=== PATIENT | female | born 1955 | race Caucasian/White ===

== ENCOUNTER → 2019-07-08 09:16 | Outpatient (CLI) | payer BC, MEDICARE, SELFPAY ==
--- NOTE | 2019-07-08 09:21 | MM_ITS ---
PROCEDURE: MM DIG SCREENING MAMM BI W/CAD CLINICAL INDICATION: SCREENING no hormones but no new complaints. Noncontributory family history COMPARISON: DIGMAMMDX MAMMOGRAM DX-NUTRITION CLUB AMBASSADOR N/C from 04/27/2003 DMSB DIGITAL MAMM-SCREEN BILATERAL from 05/30/2012 DMSB DIG MAMM-SCREEN KEVIN from 06/29/2014 TECHNIQUE: Standard CC and MLO images were obtained. R2 CAD reviewed. FINDINGS: Moderate density breast. Mild inhomogeneous. Mild asymmetry No dominant or suspicious mass. No suspicious calcifications. Right breast no new areas of significant concern Left breast: mild asymmetric areas of density at the medial inferior left breast, best seen on CC View unchanged since prior study, IMPRESSION: No significant change since prior study. Stable mammogram. Follow up 1 year recommended BI-RAD Category: 2 Benign Finding(s) FOLLOW-UP: 1YR 1 Year Follow-up (A letter has been sent to the patient regarding results of the study.) Dictated by: Levon Friedman MD 07/08/2019 15:03 Signed by: <Electronically signed by Levon Friedman MD in [place]> 07/11/2019 23:09
--- NOTE | 2019-07-08 09:22 | XR_ITS ---
PROCEDURE: XR DEXA AXIAL SKELETON CLINICAL HISTORY: POSTMENOPAUSAL SCREENING COMPARISON: No exams were available for comparison FINDINGS: L1-L4 density has a density of 1.067 grams/centimeter sq with a T-score of -0.9. The lowest density in the hip is in region of the right femoral neck and has a T-score of -0.9. IMPRESSION: Normal bone density with low fracture risk. Recommend follow-up exam June 2021. Dictated by: Carmelo Murphy MD 07/08/2019 18:51 Signed by: <Electronically signed by Carmelo Murphy MD in [place]> 07/08/2019 18:51
== END ==
PROVIDERS: PCP Family Medicine; Visit Provider Physician Assistant
DX: Z12.31 Encounter for screening mammogram for malignant neoplasm of breast (principal); Z78.0 Asymptomatic menopausal state
CPT/HCPCS: 77067; 77080

== ENCOUNTER → 2019-12-28 14:42 | Outpatient (CLI) | payer BC, SELFPAY ==
--- NOTE | 2019-12-28 14:48 | XR_ITS ---
PROCEDURE: XR KUB CLINICAL INDICATION: RT FLANK PAIN,HEMATURIA COMPARISON: No exams were available for comparison FINDINGS: Gas pattern-The bowel gas pattern is unremarkable. No obvious obstruction. Calcifications-No abnormal calcifications are evident. No obvious renal or ureteral calculi. Bones-No acute bony anomalies evident. IMPRESSION: No acute findings. Dictated by: Carmelo Murphy MD 12/28/2019 15:23 Electronically signed by Carmelo Murphy MD in [place] 12/28/2019 15:23
== END ==
PROVIDERS: PCP Family Medicine; Visit Provider Family Medicine
DX: R10.9 Unspecified abdominal pain (principal); R31.29 Other microscopic hematuria
CPT/HCPCS: 74018

== ENCOUNTER → 2021-06-14 12:19 | Outpatient (CLI) | payer BC, SELFPAY ==
--- NOTE | 2021-06-14 | CA_ITS ---
APPROVED REPORT Exam: Pharmacologic Technologist: chito farias, Ht: 5 ft 1 in Wt: 240 lbs BSA: 2.04 m2 HR: 71 bpm BP: 179/80 mmHg Indications: CP Medical History Medications: Fluid pill,,,,, Allergies: Sulfa, Codeine Cardiac Risk Factors: HTN, FHX of CAD Stress Test Details Test: LEXISCAN HR Resting HR: 72 bpm Max Heart Rate (APMHR): 153.849251 bpm Max HR Achieved: 106 bpm Target HR (85% APMHR): 130.036504 bpm % of APMHR: 69.28 Recovery HR: 87 bpm BP Resting BP: 179/80 mmHg Max BP: 179/80 mmHg Recovery BP: 168.0/81.0 mmHg ECG Resting ECG: NSR, early repolarization changes. Clinical Exercise duration: 04:06 min Highest Stage Achieved: Exercise capacity: 1.0 METs Stress ECG Conclusion No symptoms. No arhhythmia or ectopy. No significant ST changes. Unremarkable Lexiscan stress. Images reported separately. Electronically signed by : Seth Ortega, 06/15/2021 11:49:12
--- NOTE | 2021-06-14 12:41 | NM_ITS ---
APPROVED REPORT Exam: Nuclear Stress Test Indication: fm hx, c.p., sob, fatigue Patient Location: Outpatient Stress Tech: Jankishani Peña [place] Tech:Beatris Claire SAPNA RT (R)(N)(M) Ht: 5 ft 1 in Wt: 240 lbs Bra Size: 40B HR: 71 bpm BP: 179/80 mmHg BSA: 2.04 m2 BMI: 45.3 History: fm hx, c.p., sob, fatigue Procedure: Patient received a 0.4 mg of intravenous Lexiscan, resting heart rate 71 bpm, resting blood pressure 179/80 mmHg, with Lexiscan maximum heart rate achived was 104 bpm which is Less than 85 % of the maximum predicted heart rate and blood pressure was 178/92 mmHg. With Lexiscan, patient denied any complaint of chest pain. Electrocardiogram Resting electrocardiogram shows sinus rhythm, with Lexiscan there is less than 1.[address] segment depression noted from the baseline EKG. The EKG portion of the Lexiscan is nondiagnostic Cardiac Stress and Resting SPECT Images: Cardiac Stress and Resting SPECT images were obtained using technetium 99m Myoview 31.7 mCi stress and 10.16 mCi at rest. Gated SPECT for the analysis of segmental wall motion and calculation of the ejection fraction also done. Prone images were also obtained. Cardiac stress and resting SPECT images show uniform myocardial activity without segmental perfusion abnormality, computer derived ejection fraction is over 65% with no regional wall motion abnormality, right ventricle is normal size and contractility. Conclusion: 1. The EKG portion of the Lexiscan is nondiagnostic. 2. No scintigraphic evidence of reversible ischemia seen, computer derived ejection fraction is over 65.1 with no regional wall motion abnormality, right ventricle is normal size and contractility. 3. Normal Lexiscan Myoview study. Electronically signed by : Seth Ortega, 06/15/2021 12:48:56
== END ==
PROVIDERS: PCP Family Medicine; Visit Provider Family Medicine
DX: R07.9 Chest pain, unspecified (principal)
CPT/HCPCS: 78452; 93017; A9502; J2785

== ENCOUNTER 2022-04-17 10:46 | Emergency (ER) | payer BC, MEDICARE, SELFPAY ==
[2022-04-17 11:10] VITALS: BP 140/80; PULSE 75; RESP 18; TEMP 36.5; O2SAT 98; BMI 44.4
--- NOTE | 2022-04-17 11:41 | HMH.EDUTC ---
[facility] [place] Impression: Viral syndrome Disposition: Home, Self-Care Condition on Discharge: Good Instructions: DI for Viral Syndrome, DI for COVID-19 (Suspected or Confirmed ), Preventing the Spread of Coronavirus Discharge Instructions Additional Instructions: *Monitor Temp, Over the counter Motrin or Tylenol as directed/as needed Tylenol every 4 hours and Motrin every 6 hours (as long as your family doctor has told you that you can take it) for fever or pain. and straight to ER if unable to lower temp less than 101.0 after medication given *Warm salt water gargles may help to soothe the throat *Throat Lozenges *Warm fluids like tea with honey may help to soothe the throat *Sleep elevated *Humidifier/Vaporizer Follow up IMMEDIATELY for new or worsening symptoms or no Noticeable improvement over the next 48-72 hours. 911 for difficulty breathing or swallowing You were tested for today for Upper Respiratory Panel with COVID19 your test result should be back in the next 24-48 hours, you may Check your results on the [facility] My Health Portal make sure to take your Vitamins Vit. C Vit D and Zinc if you can take them Referrals: Adelso Mathew MD [Primary Care Provider] - As needed Forms: Work/School Release Time of Disposition: 11:46 Medical Decision Making - Rizwan Inquiry Pt receiving controlled substance: No Rizwan was queried for this patient: No Vital Signs: 04/17/22 11:10 Temperature 97.7 F Temperature Source Oral Pulse Rate [Left Brachial] 75 Respiratory Rate 18 Blood Pressure [Left Arm] 140/80 Blood Pressure Mean [Left Arm] 100 Blood Pressure Source [Left Arm] Automatic Cuff Blood Pressure Position [Left Arm] Sitting 02 Sat by Pulse Oximetry 98 Oxygen Delivery Method Room Air Orders (Tests/Meds): ORDERS Category Date Time Status Covid-19 Nasal PCR ([facility]) Routine Lab 04/17/22 11:10 [place] [facility] [place] - General Stated complaint: covid test Time Seen by Provider: 04/17/22 11:41 Mode of Arrival: Ambulatory Source of Information: Patient Limitations: No Limitations Description of Symptoms (Recalled from Triage Doc. by RN): PATIENT C/O SINUS CONGESTION, COUGH, AND RUNNY NOSE X 3 DAYS. EXPOSURE TO COVID LAST WEEK HEENT Symptoms (Recalled from RN notes): Yes Resp Symptoms (Recalled from RN notes): Yes Skin Symptoms (Recalled from RN notes): No MS Symptoms (Recalled from RN notes): No Functional Status (Recalled from RN notes): WNL - History of Present Illness Provider Complaint: Patient states that she was around several people last week at lunch that has recently tested positive for COVID State that for the last 3 days she has been having sinus congestion, low grade fever and cough so she wanted to come in and get tested - Related Data Home Medications Medication Instructions Recorded Confirmed Triamterene/Hydrochlorothiazid 1 each PO DAILY 04/17/22 04/17/22 [Triamterene-Hctz 37.5-25 mg Tb] lisinopriL [Lisinopril] 5 mg PO DAILY 04/17/22 04/17/22 Allergies Allergy/AdvReac Type Severity Reaction Status Date / Time Sulfa (Sulfonamide Allergy Unknown Verified 04/17/22 11:21 Antibiotics) codeine AdvReac Unknown NA-NAUSEA/VOMITING, Verified 04/17/22 11:21 DRIVES CRAZY - Worker's Comp Is this a Worker's Comp case?: No [facility] History - Hepatitis A Screen Attestation statement:: This patient has been screened for Hepatitis A risk factors. I have reviewed the patient's past medical history: Yes Laterality Cases: Bilateral: Tonsillectomy - Social History Alcohol Intake: never Occupational Status: other ROS Obtained: Yes All systems reviewed & no additional complaints, Yes Systems reviewed as appropriate & no additional complaints - Constitutional Constitutional: Reports system reviewed and no additional complaints, except as docu, Reports body ache, Reports fatigue, Reports fever(s) - ENT Ears, Nose, Mouth, and Throat: Reports syst
[2022-04-17 11:50] VITALS: BP 140/80; PULSE 75; RESP 18; TEMP 36.5; O2SAT 98
== END 2022-04-17 11:53 | disposition home or self-care (01) ==
PROVIDERS: Emergency Provider Nurse Practitioner; PCP Family Medicine
DX: B34.9 Viral infection, unspecified (principal); Z20.822 Contact with and (suspected) exposure to COVID-19
CPT/HCPCS: 99212; C9803; G0463; U0003; U0005

== ENCOUNTER → 2023-07-05 13:00 | Outpatient (CLI) | payer BC, MEDICARE, SELFPAY ==
--- NOTE | 2023-07-05 13:07 | MM_ITS ---
PROCEDURE INFORMATION: Exam: MG Bilateral Screening 3D Mammography Exam date and time: 07/05/2023 1:19 PM Age: 67 years old Clinical indication: Screening examination TECHNIQUE: Imaging protocol: Bilateral Screening tomosynthesis and 2D mammography including computer-aided detection (CAD) when performed. COMPARISON: 1. MG MM DIG SCREENING MAMM BI W/CAD 07/08/2019 9:36 AM 2. MG DMSB DIG MAMM-SCREEN KEVIN 06/29/2014 1:21 PM FINDINGS: MAMMOGRAPHY: Breast composition: There are scattered areas of fibroglandular density. Mass: None. Architectural distortion: None. Calcifications: No suspicious calcifications. Asymmetric density: None. Skin thickening: None. Axillary adenopathy: None. IMPRESSION: No mammographic evidence of malignancy. Annual screening is recommended unless otherwise clinically indicated. ASSESSMENT: BI-RADS Category 1: Negative
== END ==
PROVIDERS: PCP Family Medicine; Visit Provider Nurse Practitioner Family
DX: Z12.31 Encounter for screening mammogram for malignant neoplasm of breast (principal)
CPT/HCPCS: 77063; 77067

== ENCOUNTER 2023-08-04 07:55 | Inpatient (IN) | payer BC, MEDICARE, SELFPAY ==
[2023-08-04] VITALS (10 sets, daily range): BP systolic 172–225; BP diastolic 68–109; PULSE 66–109; RESP 16–18; TEMP 36.6–37.2; O2SAT 97–99; BMI 46.3
--- NOTE | 2023-08-04 08:09 | HMH.EDGENADL ---
Discharge Plan Disposition Patient Disposition: Admitted Chief Complaint: Abdominal Pain Clinical Impressions Clinical Impression: Acute pancreatitis, Abdominal pain Discharge ED Provider: Son Mcduffie General Adult HPI General Chief complaint: Abdominal Pain Stated complaint: stomach pain, vomiting Time Seen by Provider: 08/04/23 07:58 History of Present Illness HPI narrative: Patient is 67-year-old female with past medical history of hypertension who presents emergency department for evaluation of abdominal pain. Onset was acute, occurring Saturday afternoon. Periumbilical, worse with p.o. intake, described as pulsating and in her guts . Her p.o. intake is decreased from baseline, there is minimal 1 episode of vomiting. Normally she stools daily however has noticed that she has decreased stooling and flatus. Denies significant dysuria. Denies chest pain. Denies back pain. No other acute complaints at this time. Patient has a past medical history of previous cholecystectomy. Related Data Home Medications Medication Instructions Recorded Confirmed lisinopril 5 mg tablet 5 mg PO DAILY High Blood Pressure 04/17/22 08/04/23 Allergies Allergy/AdvReac Type Severity Reaction Status Date / Time Sulfa (Sulfonamide Allergy Unknown Verified 04/17/22 11:21 Antibiotics) codeine AdvReac Unknown NA-NAUSEA/VOMITING, Verified 04/17/22 11:21 DRIVES BEBAYanet [facility] Disclaimer: The information contained in this section may have been updated after the patient was seen, as this information can be updated by other users. Social History Smoking Status: Never smoker alcohol intake: never current occupational status: other Travel in the last 8 weeks: None ROS Obtained: Yes Systems reviewed as appropriate & no additional complaints except as documented Physical Exam General General appearance: alert and in no apparent distress Head Head exam: atraumatic and normocephalic Eye Eye exam: Present PERRL and EOMI ENT ENT exam: Present mucous membranes moist Neck Neck exam: Present normal inspection Chest Chest inspection: Present normal inspection and symmetric chest wall rise Respiratory Respiratory exam: Present normal lung sounds bilaterally; Absent respiratory distress Cardiovascular Cardiovascular exam: Present normal rhythm and tachycardia Abdominal Exam Abdominal exam: Present soft; Absent tenderness or guarding Extremities Exam Extremities exam: Present normal inspection Neurological Exam Neurological exam: Present alert Psychiatric Psychiatric exam: Present normal affect Skin Skin exam: Present warm and dry Medical Decision Making Rizwan Inquiry Pt receiving controlled substance: No Vital Signs: 08/04/23 07:56 08/04/23 08:20 08/04/23 08:35 Temperature 98.9 F 97.9 F Temperature Source Oral Oral Pulse Rate 82 75 Pulse Rate [Right] 109 H Respiratory Rate 17 16 Blood Pressure 204/89 H 204/82 H Blood Pressure [Right Arm] 225/109 H Blood Pressure Mean [Right Arm] 147 Blood Pressure Source Automatic Cuff Blood Pressure Source [Right Arm] Automatic Cuff Blood Pressure Position Supine 02 Sat by Pulse Oximetry 99 98 98 Oxygen Delivery Method Room Air Room Air Room Air Lab Data Lab Results 08/04/23 08:11: SARS-CoV-2 (PCR) Not detected, Influenza A Untype (PCR) Not detected, Influenza Type B (PCR) Not detected 08/04/23 08:25: WBC 16.9 H, RBC 5.46 H, Hgb 15.7, Hct 47.6 H, MCV 87.3, MCH 28.8, MCHC 33.0, RDW 13.6, Plt Count 352, MPV 9.1, Neut % (Auto) 84.2 H, Lymph % (Auto) 10.3, [place] % (Auto) 3.7, Eos % (Auto) 1.7, Baso % (Auto) 0.3, Neut # (Auto) 14.3 H, Lymph # (Auto) 1.7, [place] # (Auto) 0.6, Eos # (Auto) 0.3, Baso # (Auto) 0.0, Total Counted 100, Neutrophils % (Manual) 85 H, Lymphocytes % (Manual) 13, Monocytes % (Manual) 2, Platelet Estimate Normal, RBC Morphology Normal, Sodium 133 L, Potassium 3.7, Chloride 97 L, Carbon Dioxide 24, Anion Gap 15.7
--- NOTE | 2023-08-04 08:21 | PC.NURSE ---
Damaris from lab called to advise there was not enough urine to run a UA
--- NOTE | 2023-08-04 08:24 | ECG_ITS ---
APPROVED REPORT Exam: Resting ECG HR:72 bpm ECG Measurements Heart Rate 72 AXES TX 198 P 68 QRSd 84 QRS 9 QT 394 T 51 QTc 419 Conclusion SINUS RHYTHM NORMAL ECG UNCONFIRMED REPORT Electronically signed by : Reji Resendez MD 08/06/2023 17:19:55
[2023-08-04 08:38] LABS: Basophils % 0.3 % (0.1-2.0); Eosinophils # 0.3 K/mm3 (0.0-0.4); Eosinophils % 1.7 % (0.1-12.0); Hematocrit 47.6 % (37.0-47.0); Hemoglobin 15.7 g/dL (12.2-16.2); Lymphocytes # 1.7 K/mm3 (0.7-4.5); Lymphocytes % 10.3 % (10-50); Mean Corpuscular Hemoglobin 28.8 pg (27.0-31.2); Mean Corpuscular Volume 87.3 fl (81-99); Mean Platelet Volume 9.1 fl (7.4-10.4); Monocytes # 0.6 K/mm3 (0.1-1.0); Monocytes % 3.7 % (1.7-9.3); Neutrophils # 14.3 K/mm3 (1.8-7.8); Neutrophils % 84.2 % (37.0-80.0); Platelet Count 352 K/mm3 (142-424); Red Blood Count 5.46 M/mm3 (4.20-5.40); Red Cell Distribution Width 13.6 % (11.5-17.5); White Blood Count 16.9 K/mm3 (4.8-10.8)
[2023-08-04 08:40] LABS: Chloride 97 mmol/L (98-107); MANUAL DIFFERENTIAL MANUAL DIFFERENTIAL (MANUAL DIFF); Potassium 3.7 mmoL/L (3.5-5.1); Sodium 133 mmol/L (136-145)
[2023-08-04 08:42] LABS: Alanine Aminotransferase 32 U/L (12-78); Aspartate Amino Transferase 34 U/L (14-36); Blood Urea Nitrogen 9 mg/dl (7-17); Creatinine Clearance Estimated 40 mL/min (50-200); Estimated Glomerular Filt Rate 122 ml/min (>60); GFR (African American) 148 ML/MIN (>60); Lactic Acid 1.4 mmol/L (0.7-2.1)
[2023-08-04 08:43] LABS: Albumin Level 4.2 g/dl (3.5-5.0); Alkaline Phosphatase 131 U/L (38-126); Anion Gap 15.7 mEq/L (5-15); Bilirubin,Total 0.9 mg/dl (0.2-1.3); Calcium 9.7 mg/dl (8.4-10.2); Carbon Dioxide 24 mmol/L (22.0-30.0); Globulin 4.1 g/dL (1.3-3.2); Glucose 126 mg/dl (74-100); Total Protein,Serum 8.3 g/dl (6.3-8.2)
[2023-08-04 08:44] LABS: Lipase 1220 U/L (23-300)
--- NOTE | 2023-08-04 08:44 | PC.NURSE ---
notified ER of critical lipase result
--- NOTE | 2023-08-04 08:51 | PC.NURSE ---
Dr. Mcduffie speaking with Dr. Mathew
[2023-08-04 08:54] LABS: Lymphocytes % 13 % (10-50); Monocytes % 2 % (2-9); Neutrophils % 85 % (42-76); Platelet Estimate Normal; RBC Morphology Normal; Total Cells Counted 100
[2023-08-04 08:59] LABS: Coronavirus 19, PCR Not Detected (NotDetected); Influenza A, PCR Not Detected (NotDetected); Influenza B, PCR Not Detected (NotDetected)
--- NOTE | 2023-08-04 09:00 | PC.NURSE ---
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
--- NOTE | 2023-08-04 09:16 | HMH.PHAINT1 ---
Pharmacy Intervention Comments: MEDICATION RECONCILIATION COMPLETED ON PATIENT USING EXTERNAL FILL HISTORY FROM PHARMACY. -NICHOLAS LOVE, RAVID
--- NOTE | 2023-08-04 09:27 | PC.NURSE ---
Attempted to call report, nurse unavailable. Will call again shortly.
--- NOTE | 2023-08-04 09:41 | PC.NURSE ---
Gave report to Corina MCKOY on med-Surg.
[2023-08-04 12:55] LABS: Microscopic, Urine URINE MICROSCOPIC (MICROSCOPIC)
[2023-08-04 12:56] LABS: Appearance,Urine CLEAR (Clear); Bilirubin,Urine Negative (Negative); Blood, Urine TRACE-I (Negative); Color,Urine YELLOW (Yellow); Glucose,Urine (UA) Negative (Negative); Ketones,Urine TRACE (Negative); Leukocyte Esterase,Urine Negative (Negative); Nitrate,Urine Negative (Negative); PH,Urine 6.5 (5.0-8.5); Protein,Urine Negative (Negative); Specific Gravity, Urine <= 1.005 (1.005-1.030); Urobilinogen,Urine 0.2 EU/dl (0.2)
[2023-08-04 13:12] LABS: Bacteria,Urine Trace /lpf; Squamous Epithelial Cell,Urine Occasional #/hpf (0-5)
--- NOTE | 2023-08-04 14:22 | EXP.HP ---
History of Present Illness *Admission Date: 08/04/23 *Reason for visit:: Abdominal pain *History of present illness: This 67-year-old white female was admitted through the emergency room at [facility] with complaints of abdominal pain. She was admitted on Saturday and started with symptoms Saturday afternoon. Pain was exacerbated by anything that she tried to eat including soda crackers.She recently has been bothered by constipation and was concerned that this might be the etiology. She only had an episode of vomiting on the morning of admission. She was unable to get any relief and thus she came to the emergency room where she was evaluated and found to have elevated lipase at 1220.Her white blood cell count was also elevated around 13,000. She did have a CT scan in the emergency room. Of interest, she was scheduled to start on Wegovy for weight control but she has not initiated this.She was last seen in the office of [facility] on July 02, 2023.She does not drink alcohol to excess. She is not aware of her lipid status. [facility] Disclaimer: The information contained in this section may have been updated after the patient was seen, as this information can be updated by other users. Medical History (Updated 08/04/23 @ 14:32 by Adelso Mathew MD) BMI 45.0-49.9, adult Diverticulosis Endometriosis Hypertension Surgical History (Updated 08/04/23 @ 10:24 by Saranya Barragan RN) History of appendectomy History of cholecystectomy History of hysterectomy Family History (Updated 08/04/23 @ 10:27 by Saranya Barragan RN) Stomach cancer Prostate cancer Diabetes CHF (congestive heart failure) Heart attack Lung cancer Parkinsons Social History (Updated 08/04/23 @ 10:27 by Saranya Barragan RN) Smoking Status: Never smoker alcohol intake: never current occupational status: employed and other Travel in the last 8 weeks: None Review of Systems Constitutional Constitutional: Reports system reviewed and no additional complaints, except as documented Eyes Eyes: Reports system reviewed and no additional complaints, except as documented ENT Ears, Nose, Mouth, and Throat: Reports system reviewed and no additional complaints, except as documented *Cardiovascular Cardiovascular: Reports system reviewed and no additional complaints, except as documented, Denies chest pain, Denies dyspnea on exertion and Denies palpitations *Respiratory Respiratory: Reports system reviewed and no additional complaints, except as documented, Denies chest congestion, Denies cough and Denies dyspnea on exertion *Gastrointestinal Gastrointestinal: Reports system reviewed and no additional complaints, except as documented, Reports abdominal pain, Reports change in bowel habits, Reports constipation and Reports cramping *Genitourinary Genitourinary: Reports system reviewed and no additional complaints, except as documented and Denies difficulty voiding *Musculoskeletal Musculoskeletal: Reports system reviewed and no additional complaints, except as documented Integumentary/Breasts Skin/Breast: Reports system reviewed and no additional complaints, except as documented *Neurologic Neurologic: Reports system reviewed and no additional complaints, except as documented and Denies behavioral changes Psychiatric Psychiatric: Reports system reviewed and no additional complaints, except as documented, Denies anxiety and Denies behavioral changes Endocrine Endocrine: Reports system reviewed and no additional complaints, except as documented and Denies palpitations Hematologic/Lymphatic Hematologic/Lymphatic: Reports system reviewed and no additional complaints, except as documented Allergic/Immunologic Allergic/Immunologic: Reports system reviewed and no additional complaints, except as documented Meds Home Medications and Allergies Home Medications Medication Instructions Recorded Confirmed Type lisinopril 5 mg tablet 5 mg PO DAILY High Blo
--- NOTE | 2023-08-04 18:46 | PC.NURSE ---
pt has rested on and off through out the day. c/o abdominal pain which is mostly relieved with medication.
[2023-08-05] VITALS: BP 179/96; PULSE 106; RESP 18; TEMP 37.2; O2SAT 96
[2023-08-05 04:00] VITALS: BP 187/95; PULSE 104; RESP 18; TEMP 37.2; O2SAT 96; BMI 45.9
--- NOTE | 2023-08-05 04:14 | PC.NURSE ---
pt has been hypertensive, dr roche made aware. order given for lisinopril 5 mg x1 dose. not effective. md notified a second time. no new orders received. made aware of positve sepsis screen relatared to hr>90 and wbc 16. new order for blood cx and rocephin 1 gm daily. pt reports upper abd pain relieved with morphine. not taking anything orally
[2023-08-05 06:47] LABS: Basophils % 0.2 % (0.1-2.0); Eosinophils # 0.1 K/mm3 (0.0-0.4); Eosinophils % 0.3 % (0.1-12.0); Hematocrit 45.5 % (37.0-47.0); Hemoglobin 14.4 g/dL (12.2-16.2); Lymphocytes % 4.7 % (10-50); Mean Corpuscular HGB Conc 31.8 g/dL (31.8-35.4); Mean Corpuscular Hemoglobin 28.4 pg (27.0-31.2); Mean Corpuscular Volume 89.4 fl (81-99); Mean Platelet Volume 8.7 fl (7.4-10.4); Monocytes # 1.1 K/mm3 (0.1-1.0); Monocytes % 5.3 % (1.7-9.3); Neutrophils # 18.5 K/mm3 (1.8-7.8); Neutrophils % 89.5 % (37.0-80.0); Platelet Count 289 K/mm3 (142-424); Red Blood Count 5.09 M/mm3 (4.20-5.40); Red Cell Distribution Width 13.7 % (11.5-17.5); White Blood Count 20.7 K/mm3 (4.8-10.8)
[2023-08-05 06:50] LABS: MANUAL DIFFERENTIAL MANUAL DIFFERENTIAL (MANUAL DIFF)
[2023-08-05 06:59] LABS: Alanine Aminotransferase 84 U/L (12-78); Albumin Level 3.7 g/dl (3.5-5.0); Albumin/Globulin Ratio 1.1 (1.1-1.8); Alkaline Phosphatase 140 U/L (38-126); Anion Gap 12.9 mEq/L (5-15); Aspartate Amino Transferase 82 U/L (14-36); Bilirubin,Total 0.7 mg/dl (0.2-1.3); Blood Urea Nitrogen 6 mg/dl (7-17); Calcium 8.5 mg/dl (8.4-10.2); Carbon Dioxide 25 mmol/L (22.0-30.0); Chloride 97 mmol/L (98-107); Creatinine Clearance Estimated 40 mL/min (50-200); Estimated Glomerular Filt Rate 99 ml/min (>60); GFR (African American) 120 ML/MIN (>60); Globulin 3.3 g/dL (1.3-3.2); Glucose 110 mg/dl (74-100); Lipase 264 U/L (23-300); Potassium 3.9 mmoL/L (3.5-5.1); Sodium 131 mmol/L (136-145)
[2023-08-05 07:03] LABS: Chol/HDL Ratio 1.8 (1-3.5); Cholesterol 126 mg/dl (140-200); HDL Cholesterol 70 mg/dl (40-60); Triglycerides 43 mg/dl (30-150); VLDL Cholesterol 9 mg/dL (0-40)
[2023-08-05 07:14] LABS: Direct LDL Cholesterol 41.46 mg/dL (100-129)
[2023-08-05 07:38] LABS: Lymphocytes % 5 % (10-50); Monocytes % 6 % (2-9); Neutrophils % 89 % (42-76); Platelet Estimate Normal; RBC Morphology Normal; Total Cells Counted 100
[2023-08-05 08:00] VITALS: BP 176/90; PULSE 98; RESP 18; TEMP 36.9; O2SAT 97
--- NOTE | 2023-08-05 08:17 | EXP.ACUTE.PN ---
Subjective *Date: 08/05/23 *Time: 08:17 Interval history: Patient states she slept very little. She has required pain medicine throughout the night. She has had 1 brief period of nausea but no vomiting. Bowels have not moved. She has been sipping a little water. She is ambulated in the room and to the bathroom. She is voiding QS. No imaging results present for review. Patient states they did not take her out of the room for any type of x-ray. I also spoke with radiology and she has not had any imaging completed thus far. She had an EKG done while in the ER. A.m. lab work reveals white count has elevated to 20,700 with hemoglobin of 14.4 and hematocrit of 45.5. Sodium is 131, BUN 6 with a creatinine 0.6, liver function studies are elevated with an AST of 82 ALT of 84 and alkaline phosphatase of 140. Lipid profile showed total cholesterol 126 with triglycerides of 43 and LDLs 41.46. Lipase has decreased to 6 264. Blood pressure remains elevated. She has had a low-grade fever. Blood culture results are pending. Medical Exam Vital signs and Labs for Last 24 Hours: Vital Signs Temp Pulse Pulse Resp BP BP Pulse Ox 08/05/23 04:00 99.0 F 104 H 18 187/95 H 96 08/05/23 05:00 08/05/23 03:00 08/05/23 01:00 08/05/23 00:00 99.0 F 106 H 18 179/96 H 96 08/04/23 23:00 08/04/23 21:00 08/04/23 19:00 08/04/23 20:15 08/04/23 20:00 98.7 F 94 H 18 188/96 H 97 08/04/23 21:15 99 H 176/79 H 08/04/23 23:14 101 H 181/99 H 08/04/23 17:00 08/04/23 15:00 08/04/23 13:00 08/04/23 11:00 08/04/23 15:32 97.9 F 69 18 181/84 H 99 08/04/23 09:40 98.6 F 68 18 172/86 H 08/04/23 09:31 66 172/68 H 97 08/04/23 09:01 77 186/77 H 98 08/04/23 08:35 75 204/82 H 98 08/04/23 08:20 97.9 F 82 16 204/89 H 98 O2 Del Method 08/05/23 04:00 Room Air 08/05/23 05:00 Room Air 08/05/23 03:00 Room Air 08/05/23 01:00 Room Air 08/05/23 00:00 Room Air 08/04/23 23:00 Room Air 08/04/23 21:00 Room Air 08/04/23 19:00 Room Air 08/04/23 20:15 Room Air 08/04/23 20:00 Room Air 08/04/23 21:15 08/04/23 23:14 08/04/23 17:00 Room Air 08/04/23 15:00 Room Air 08/04/23 13:00 Room Air 08/04/23 11:00 Room Air 08/04/23 15:32 Room Air 08/04/23 09:40 Room Air 08/04/23 09:31 Room Air 08/04/23 09:01 Room Air 08/04/23 08:35 Room Air 08/04/23 08:20 Room Air Intake and Output 08/04/23 08/05/23 08/05/23 19:59 03:59 11:59 Intake Total 840 / 840 1800 / 2640 Output Total 0 / 0 0 / 0 Balance 840 / 840 0 / 840 1800 / 2640 Intake: Intake, Oral Amount 840 / 840 Intake, Other Amount 1800 / 1800 Output: Output, Urine Amount 0 / 0 0 / 0 Other: Intake, Other Source Saline Solution Number of Unmeasured Voids 0 1 Weight 243 lb 7 oz Patient Weight 08/05/23 11:59 Weight 243 lb 7 oz Laboratory Results - last 24 hr 08/04/23 08:11: SARS-CoV-2 (PCR) Not detected, Influenza A Untype (PCR) Not detected, Influenza Type B (PCR) Not detected 08/04/23 08:25: WBC 16.9 H, RBC 5.46 H, Hgb 15.7, Hct 47.6 H, MCV 87.3, MCH 28.8, MCHC 33.0, RDW 13.6, Plt Count 352, MPV 9.1, Neut % (Auto) 84.2 H, Lymph % (Auto) 10.3, [place] % (Auto) 3.7, Eos % (Auto) 1.7, Baso % (Auto) 0.3, Neut # (Auto) 14.3 H, Lymph # (Auto) 1.7, [place] # (Auto) 0.6, Eos # (Auto) 0.3, Baso # (Auto) 0.0, Total Counted 100, Neutrophils % (Manual) 85 H, Lymphocytes % (Manual) 13, Monocytes % (Manual) 2, Platelet Estimate Normal, RBC Morphology Normal, Sodium 133 L, Potassium 3.7, Chloride 97 L, Carbon Dioxide 24, Anion Gap 15.7 H, BUN 9, Creatinine 0.50 L, Estimated Creat Clear 40, Estimated GFR 122, Est GFR ( Amer) 148, Glucose 126 H, Lactate 1.4, Calcium 9.7, Total Bilirubin 0.9, AST 34, ALT 32, Alkaline Phosphatase 131 H, Total Protein 8.3 H, Albumin 4.2, Globulin 4.1 H, Albumin/Globulin Ratio 1.0 L, Lipase 1220 H
--- NOTE | 2023-08-05 08:18 | CT_ITS ---
FINAL REPORT TECHNIQUE: Axial CT images of the abdomen and pelvis were obtained before and after the administration of IV contrast. Oral contrast was administered.This study was performed with techniques to keep radiation doses as low as reasonably achievable (ALARA). Individualized dose reduction techniques using automated exposure control or adjustment of mA and/or kV according to the patient''s size were employed. CLINICAL HISTORY: Pancreatitis with abdominal pain COMPARISON: None FINDINGS: Abdomen: There is mild bibasilar atelectasis or scar present. The heart is normal in size. There is mild fatty infiltration of the liver, without evidence of mass or ductal dilatation. The gallbladder has been surgically removed.. The spleen is unremarkable. No adrenal masses present. There is stranding adjacent to the head of the pancreas, consistent with the patient's clinical history of pancreatitis. There are no fluid collections identified to suggest a pseudocyst, abscess, or other cystic pancreatic mass. There is a small left renal cyst present. The aorta is normal in caliber. There is no free fluid or adenopathy. Precontrast images demonstrate no evidence of nephrolithiasis. Pelvis: The appendix is not well visualized. The urinary bladder is unremarkable. No inflammatory process is seen. There is no evidence of mass or adenopathy. There is no evidence of bowel obstruction. The uterus has been surgically resected. IMPRESSION: There is stranding adjacent to the head of the pancreas consistent with the patient's clinical history of pancreatitis. No adjacent fluid collections are present to suggest a pseudocyst or other complication of pancreatitis at this time. Mild fatty infiltration of the liver. The gallbladder and uterus have been surgically resected. Reviewed, Interpreted and Dictated by Harjit Alba III, MD Transcribed by Ansley Medeiros Authenticated and [facility]
--- NOTE | 2023-08-05 09:14 | PC.NURSE ---
Patient gone down for imaging via wheelchair.
--- NOTE | 2023-08-05 09:32 | PC.NURSE ---
patient returned to room.
[2023-08-05 11:54] VITALS: BP 181/81; PULSE 98; RESP 18; TEMP 37.1; O2SAT 96
[2023-08-05 16:00] VITALS: BP 171/65; PULSE 101; RESP 18; TEMP 37.2; O2SAT 97
[2023-08-05 20:00] VITALS: BP 164/92; PULSE 100; RESP 17; TEMP 36.8; O2SAT 97
[2023-08-06] VITALS (7 sets, daily range): BP systolic 172–192; BP diastolic 73–98; PULSE 77–104; RESP 16–18; TEMP 36.4–36.8; O2SAT 93–97; BMI 46.0
--- NOTE | 2023-08-06 06:26 | PC.NURSE ---
pt has had a uneventful night, pt cont to be hypertensive, pain is much better. only required morphine x1 dose.
[2023-08-06 06:49] LABS: Basophils % 0.2 % (0.1-2.0); Eosinophils # 0.1 K/mm3 (0.0-0.4); Eosinophils % 0.4 % (0.1-12.0); Hematocrit 41.6 % (37.0-47.0); Hemoglobin 13.4 g/dL (12.2-16.2); Lymphocytes # 1.5 K/mm3 (0.7-4.5); Lymphocytes % 7.8 % (10-50); Mean Corpuscular HGB Conc 32.3 g/dL (31.8-35.4); Mean Corpuscular Hemoglobin 28.8 pg (27.0-31.2); Mean Corpuscular Volume 89.1 fl (81-99); Mean Platelet Volume 8.7 fl (7.4-10.4); Monocytes # 1.1 K/mm3 (0.1-1.0); Monocytes % 5.6 % (1.7-9.3); Neutrophils # 16.6 K/mm3 (1.8-7.8); Neutrophils % 86.1 % (37.0-80.0); Platelet Count 300 K/mm3 (142-424); Red Blood Count 4.67 M/mm3 (4.20-5.40); Red Cell Distribution Width 13.6 % (11.5-17.5); White Blood Count 19.3 K/mm3 (4.8-10.8)
[2023-08-06 06:55] LABS: MANUAL DIFFERENTIAL MANUAL DIFFERENTIAL (MANUAL DIFF)
[2023-08-06 07:11] LABS: Alanine Aminotransferase 65 U/L (12-78); Albumin Level 3.3 g/dl (3.5-5.0); Alkaline Phosphatase 139 U/L (38-126); Anion Gap 12.7 mEq/L (5-15); Aspartate Amino Transferase 46 U/L (14-36); Bilirubin,Total 0.5 mg/dl (0.2-1.3); Blood Urea Nitrogen 8 mg/dl (7-17); Calcium 8.5 mg/dl (8.4-10.2); Carbon Dioxide 26 mmol/L (22.0-30.0); Chloride 97 mmol/L (98-107); Creatinine Clearance Estimated 40 mL/min (50-200); Estimated Glomerular Filt Rate 122 ml/min (>60); GFR (African American) 148 ML/MIN (>60); Globulin 3.2 g/dL (1.3-3.2); Glucose 92 mg/dl (74-100); Lipase 62 U/L (23-300); Potassium 3.7 mmoL/L (3.5-5.1); Sodium 132 mmol/L (136-145); Total Protein,Serum 6.5 g/dl (6.3-8.2)
--- NOTE | 2023-08-06 07:45 | EXP.ACUTE.PN ---
Subjective *Date: 08/06/23 *Time: 07:45 Interval history: Patient feels better today. She did sleep some. She is requiring less pain medicine. She tried a regular diet this morning and was able to eat a few bites but did become slightly nauseated. She is passing gas but has not had a stool. Pain is more of a soreness now. She denies chest pain and shortness of breath. She has ambulated in the room and is voiding QS. She is able to drink fluids. Blood culture results are pending. CT of the abdomen and pelvis show pancreatitis;Mild fatty infiltration of the liver. White blood cell count remains elevated at 19,300; sodium is low at 132 but improved. Potassium is 3.7. Renal function is satisfactory. Liver function studies have improved. Blood pressure remains elevated. Medical Exam Vital signs and Labs for Last 24 Hours: Vital Signs Temp Pulse Resp BP Pulse Ox O2 Del Method 08/06/23 05:00 Room Air 08/06/23 03:54 97.9 F 92 H 16 178/78 H 93 L Room Air 08/06/23 03:00 Room Air 08/06/23 01:00 Room Air 08/05/23 23:00 Room Air 08/05/23 21:00 Room Air 08/05/23 21:00 Room Air 08/06/23 00:00 98.2 F 97 H 16 183/98 H 94 L Room Air 08/05/23 20:00 98.3 F 100 H 17 164/92 H 97 Room Air 08/05/23 18:17 Room Air 08/05/23 17:00 Room Air 08/05/23 15:00 Room Air 08/05/23 13:00 Room Air 08/05/23 16:00 98.9 F 101 H 18 171/65 H 97 Room Air 08/05/23 11:00 Room Air 08/05/23 11:54 98.8 F 98 H 18 181/81 H 96 Room Air 08/05/23 09:00 Room Air 08/05/23 08:00 Room Air 08/05/23 08:00 98.5 F 98 H 18 176/90 H 97 Room Air Intake and Output 08/05/23 08/06/23 08/06/23 19:59 03:59 11:59 Intake Total 1354 / 1354 1075 / 2429 Output Total 100 / 100 0 / 100 Balance 1354 / 1354 -100 / 1254 1075 / 2329 Intake: Intake, Oral Amount 240 / 240 Intake, Other Amount 1114 / 1114 1075 / 2189 Output: Output, Urine Amount 100 / 100 0 / 100 Other: Intake, Other Source Saline Solution Number of Unmeasured Voids 1 2 Weight 243 lb 11.2 oz Patient Weight 08/06/23 11:59 Weight 243 lb 11.2 oz Laboratory Results - last 24 hr 08/06/23 06:14: WBC 19.3 H, RBC 4.67, Hgb 13.4, Hct 41.6, MCV 89.1, MCH 28.8, MCHC 32.3, RDW 13.6, Plt Count 300, MPV 8.7, Neut % (Auto) 86.1 H, Lymph % (Auto) 7.8 L, [place] % (Auto) 5.6, Eos % (Auto) 0.4, Baso % (Auto) 0.2, Neut # (Auto) 16.6 H, Lymph # (Auto) 1.5, [place] # (Auto) 1.1 H, Eos # (Auto) 0.1, Baso # (Auto) 0.0, Sodium 132 L, Potassium 3.7, Chloride 97 L, Carbon Dioxide 26, Anion Gap 12.7, BUN 8 D, Creatinine 0.50 L, Estimated Creat Clear 40, Estimated GFR 122, Est GFR ( Amer) 148 D, Glucose 92, Calcium 8.5, Total Bilirubin 0.5, AST 46 H D, ALT 65, Alkaline Phosphatase 139 H, Total Protein 6.5, Albumin 3.3 L D, Globulin 3.2, Albumin/Globulin Ratio 1.0 L, Lipase 62 I & O for Labs for Last 24 Hours: Intake & Output 08/03/23 08/04/23 08/05/23 08/06/23 11:59 11:59 11:59 11:59 Intake Total 1000 / 1000 2640 / 2640 2429 / 2429 Output Total 600 / 600 0 / 0 100 / 100 Balance 400 / 400 2640 / 2640 2329 / 2329 Weight 245 lb 243 lb 7 oz 243 lb 11.2 oz Constitutional: Present no acute distress Comment:: Sitting up in the bed and appears comfortable Respiratory: Present crackles (Few bibasilar) Cardiac: Present Reg Rate and Rhythm GI: Present soft, distention, tenderness (Mid abdomen) and normal bowel sounds Extremities: Present edema (More so in the left ankle area) Assessment and Plan *Assessment and plan (1) Acute pancreatitis: Status: Acute Category: Medical Code(s): K85.90 - Acute pancreatitis without necrosis or infection, unspecified (2) Abdominal pain: Status: Acute Category: Medical Code(s): R10.9 - Unspecified abdominal pain (3) BMI 45.0-49.9, adult: Status: Acute Category: Medical Code(s): Z68.42 - Body mass ind
[2023-08-06 08:25] LABS: Eosinophils % 1 % (0-3); Lymphocytes % 6 % (10-50); Monocytes % 3 % (2-9); Neutrophils % 90 % (42-76); Total Cells Counted 100
[2023-08-06 08:26] LABS: Platelet Estimate Normal; RBC Morphology Normal
[2023-08-06 14:53] LABS: Basophils % 0.2 % (0.1-2.0); Eosinophils # 0.1 K/mm3 (0.0-0.4); Eosinophils % 0.7 % (0.1-12.0); Hematocrit 41.1 % (37.0-47.0); Hemoglobin 13.4 g/dL (12.2-16.2); Lymphocytes # 1.5 K/mm3 (0.7-4.5); Lymphocytes % 8.1 % (10-50); Mean Corpuscular HGB Conc 32.5 g/dL (31.8-35.4); Mean Corpuscular Volume 89.1 fl (81-99); Mean Platelet Volume 8.5 fl (7.4-10.4); Monocytes # 0.8 K/mm3 (0.1-1.0); Monocytes % 4.2 % (1.7-9.3); Neutrophils # 15.7 K/mm3 (1.8-7.8); Neutrophils % 86.8 % (37.0-80.0); Platelet Count 317 K/mm3 (142-424); Red Blood Count 4.62 M/mm3 (4.20-5.40); Red Cell Distribution Width 13.6 % (11.5-17.5); White Blood Count 18.2 K/mm3 (4.8-10.8)
[2023-08-06 14:54] LABS: Alanine Aminotransferase 62 U/L (12-78); Albumin Level 3.4 g/dl (3.5-5.0); Albumin/Globulin Ratio 0.9 (1.1-1.8); Alkaline Phosphatase 151 U/L (38-126); Anion Gap 13.4 mEq/L (5-15); Aspartate Amino Transferase 42 U/L (14-36); Bilirubin,Total 0.5 mg/dl (0.2-1.3); Blood Urea Nitrogen 7 mg/dl (7-17); Calcium 8.5 mg/dl (8.4-10.2); Carbon Dioxide 27 mmol/L (22.0-30.0); Chloride 95 mmol/L (98-107); Creatinine Clearance Estimated 40 mL/min (50-200); Estimated Glomerular Filt Rate 122 ml/min (>60); GFR (African American) 148 ML/MIN (>60); Globulin 3.6 g/dL (1.3-3.2); Glucose 114 mg/dl (74-100); Potassium 3.4 mmoL/L (3.5-5.1); Sodium 132 mmol/L (136-145)
[2023-08-06 14:58] LABS: MANUAL DIFFERENTIAL MANUAL DIFFERENTIAL (MANUAL DIFF)
[2023-08-06 16:08] LABS: Lymphocytes % 8 % (10-50); Monocytes % 4 % (2-9); Neutrophils % 88 % (42-76); Platelet Estimate Normal; RBC Morphology Normal; Total Cells Counted 100
--- NOTE | 2023-08-06 16:25 | PC.NURSE ---
Pt BP was elevated at the beginning of the shift 192/86, BP medications were given BP remained elevated 179/88 1 hour after administration, Called MD for further instructions, MD advised to wait for medications to take effect, BP has remained elevated with last manual BP of 176/88, Pt has complained of pain this shift and has recieved pain medications that have allowed her to rest comfortably. Pt denies all other needs at this time.
[2023-08-07] VITALS: BP 131/66; PULSE 71; RESP 18; TEMP 37.3; O2SAT 96
[2023-08-07 04:00] VITALS: BP 133/70; PULSE 64; RESP 18; TEMP 36.8; O2SAT 96; BMI 44.9
[2023-08-07 07:50] LABS: Alanine Aminotransferase 55 U/L (12-78); Albumin Level 3.8 g/dl (3.5-5.0); Alkaline Phosphatase 142 U/L (38-126); Anion Gap 14.8 mEq/L (5-15); Aspartate Amino Transferase 41 U/L (14-36); Bilirubin,Total 0.5 mg/dl (0.2-1.3); Blood Urea Nitrogen 11 mg/dl (7-17); Calcium 8.9 mg/dl (8.4-10.2); Carbon Dioxide 27 mmol/L (22.0-30.0); Chloride 95 mmol/L (98-107); Creatinine Clearance Estimated 40 mL/min (50-200); Estimated Glomerular Filt Rate 99 ml/min (>60); GFR (African American) 120 ML/MIN (>60); Globulin 3.8 g/dL (1.3-3.2); Glucose 92 mg/dl (74-100); Potassium 3.8 mmoL/L (3.5-5.1); Sodium 133 mmol/L (136-145); Total Protein,Serum 7.6 g/dl (6.3-8.2)
[2023-08-07 07:51] LABS: Basophils # 0.1 K/mm3 (0-0.2); Basophils % 0.4 % (0.1-2.0); Eosinophils # 0.2 K/mm3 (0.0-0.4); Eosinophils % 1.8 % (0.1-12.0); Hematocrit 45.6 % (37.0-47.0); Hemoglobin 14.6 g/dL (12.2-16.2); Lymphocytes # 1.4 K/mm3 (0.7-4.5); Lymphocytes % 11.1 % (10-50); Mean Corpuscular Hemoglobin 28.7 pg (27.0-31.2); Mean Corpuscular Volume 89.6 fl (81-99); Mean Platelet Volume 8.6 fl (7.4-10.4); Monocytes # 0.6 K/mm3 (0.1-1.0); Monocytes % 4.8 % (1.7-9.3); Neutrophils # 10.4 K/mm3 (1.8-7.8); Neutrophils % 81.8 % (37.0-80.0); Platelet Count 340 K/mm3 (142-424); Red Blood Count 5.09 M/mm3 (4.20-5.40); Red Cell Distribution Width 13.7 % (11.5-17.5); White Blood Count 12.7 K/mm3 (4.8-10.8)
[2023-08-07 08:00] VITALS: BP 157/71; PULSE 75; RESP 18; TEMP 36.6; O2SAT 97
--- NOTE | 2023-08-07 08:33 | EXP.ACUTE.PN ---
Subjective *Date: 08/07/23 *Time: 08:33 Interval history: Patient is feeling much better this morning. She is tolerating her diet. She has had a few stomach cramps after drinking coffee. Her bowels have not moved. She slept well last night and denies any other pain this morning. Medical Exam Vital signs and Labs for Last 24 Hours: Vital Signs Temp Pulse Resp BP Pulse Ox O2 Del Method 08/07/23 08:00 97.9 F 75 18 157/71 H 97 Room Air 08/07/23 04:00 98.3 F 64 18 133/70 96 08/07/23 00:00 99.1 F 71 18 131/66 96 Room Air 08/07/23 06:25 Room Air 08/07/23 04:32 Room Air 08/07/23 03:00 Room Air 08/07/23 01:00 Room Air 08/06/23 23:00 Room Air 08/06/23 20:00 98.2 F 77 18 172/73 H 96 Room Air 08/06/23 21:00 Room Air 08/06/23 20:00 Room Air 08/06/23 18:38 Room Air 08/06/23 17:00 Room Air 08/06/23 16:00 97.9 F 95 H 18 176/88 H 96 Room Air 08/06/23 14:57 Room Air 08/06/23 12:00 97.8 F 100 H 18 178/88 H 97 Room Air 08/06/23 13:00 Room Air 08/06/23 11:00 Room Air 08/06/23 09:00 Room Air 08/06/23 08:49 96 H 179/88 H Intake and Output 08/06/23 08/07/23 08/07/23 19:59 03:59 11:59 Intake Total 750 / 1110 120 / 1110 240 / 1110 Output Total 0 / 0 0 / 0 Balance 750 / 1110 120 / 1110 240 / 1110 Intake: Intake, Oral Amount 750 / 1110 120 / 1110 240 / 1110 Output: Output, Urine Amount 0 / 0 0 / 0 Other: Number of Unmeasured Voids 1 1 Weight 238 lb Patient Weight 08/07/23 11:59 Weight 238 lb Laboratory Results - last 24 hr 08/06/23 14:26: WBC 18.2 H, RBC 4.62, Hgb 13.4, Hct 41.1, MCV 89.1, MCH 29.0, MCHC 32.5, RDW 13.6, Plt Count 317, MPV 8.5, Neut % (Auto) 86.8 H, Lymph % (Auto) 8.1 L, [place] % (Auto) 4.2, Eos % (Auto) 0.7, Baso % (Auto) 0.2, Neut # (Auto) 15.7 H, Lymph # (Auto) 1.5, [place] # (Auto) 0.8, Eos # (Auto) 0.1, Baso # (Auto) 0.0, Total Counted 100, Neutrophils % (Manual) 88 H, Lymphocytes % (Manual) 8 L, Monocytes % (Manual) 4, Platelet Estimate Normal, RBC Morphology Normal, Sodium 132 L, Potassium 3.4 L, Chloride 95 L, Carbon Dioxide 27, Anion Gap 13.4, BUN 7, Creatinine 0.50 L, Estimated Creat Clear 40, Estimated GFR 122, Est GFR ( Amer) 148, Glucose 114 H D, Calcium 8.5, Total Bilirubin 0.5, AST 42 H, ALT 62, Alkaline Phosphatase 151 H, Total Protein 7.0, Albumin 3.4 L, Globulin 3.6 H, Albumin/Globulin Ratio 0.9 L 08/07/23 07:28: WBC 12.7 H D, RBC 5.09, Hgb 14.6, Hct 45.6, MCV 89.6, MCH 28.7, MCHC 32.0, RDW 13.7, Plt Count 340, MPV 8.6, Neut % (Auto) 81.8 H, Lymph % (Auto) 11.1, [place] % (Auto) 4.8, Eos % (Auto) 1.8, Baso % (Auto) 0.4, Neut # (Auto) 10.4 H, Lymph # (Auto) 1.4, [place] # (Auto) 0.6, Eos # (Auto) 0.2, Baso # (Auto) 0.1, Sodium 133 L, Potassium 3.8, Chloride 95 L, Carbon Dioxide 27, Anion Gap 14.8, BUN 11 D, Creatinine 0.60, Estimated Creat Clear 40, Estimated GFR 99, Est GFR ( Amer) 120, Glucose 92, Calcium 8.9, Total Bilirubin 0.5, AST 41 H, ALT 55, Alkaline Phosphatase 142 H, Total Protein 7.6, Albumin 3.8 D, Globulin 3.8 H, Albumin/Globulin Ratio 1.0 L I & O for Labs for Last 24 Hours: Intake & Output 08/04/23 08/05/23 08/06/23 08/07/23 11:59 11:59 11:59 11:59 Intake Total 1000 / 1000 2640 / 2640 2909 / 2909 1110 / 1110 Output Total 600 / 600 0 / 0 100 / 100 0 / 0 Balance 400 / 400 2640 / 2640 2809 / 2809 1110 / 1110 Weight 245 lb 243 lb 7 oz 243 lb 11.2 oz 238 lb Microbiology Reports for the Last 24 Hours: Microbiology 08/05/23 03:30 Blood Blood Culture - Preliminary NO GROWTH AFTER 48 HOURS 08/05/23 03:30 Blood Blood Culture - Preliminary NO GROWTH AFTER 48 HOURS Constitutional: Present no acute distress Comment:: Sitting up in the bed and appears comfortable Respiratory: Present CTA bilaterally Cardiac: Present Reg Rate and Rhythm GI: Present soft and normal bowel sounds; Absent di
[2023-08-07 08:48] VITALS: BMI 44.9
--- NOTE | 2023-08-08 13:14 | CARE MANAGER ---
Contacted patient related to hospital discharge. She is aware of her medication changes and picked up new medications. She is aware of her follow up appointment and denies questions or concerns. LEELEE Topete
--- NOTE | 2023-08-14 23:58 | EXP.DC.SUM ---
General Admission date:: 08/04/23 Discharge date: 08/07/23 HPI HPI HPI: This 67-year-old white female was admitted through the emergency room at [facility] with complaints of abdominal pain. She was admitted on Saturday and started with symptoms Saturday afternoon. Pain was exacerbated by anything that she tried to eat including soda crackers.She recently has been bothered by constipation and was concerned that this might be the etiology. She only had an episode of vomiting on the morning of admission. She was unable to get any relief and thus she came to the emergency room where she was evaluated and found to have elevated lipase at 1220.Her white blood cell count was also elevated around 13,000. She did have a CT scan in the emergency room. Of interest, she was scheduled to start on Wegovy for weight control but she has not initiated this.She was last seen in the office of [facility] on July 02, 2023.She does not drink alcohol to excess. She is not aware of her lipid status. Hospital Course Hospital Course Hospital Course: The patient was admitted for acute pancreatitis and a lipid panel was ordered. A CT of the abdomen was consistent with pancreatitis. She was initially kept NPO. By 08/05/2023, she had required pain medicine through the night and slept very little. She had a brief episode of nausea but no vomiting. Her bowels had not moved. Lipid profile was normal. Her lipase did begin decreasing. Her blood pressure was elevated. She was started on amlodipine for blood pressure control. By 08/06/2023, she was feeling better and requiring less pain medication. She was able to eat a few bites of food her liver function studies were improving. Her blood pressure remained elevated and her lisinopril was increased to 20 mg daily. Her IV fluids were decreased and she was tolerating p.o. fluids. By 08/07/2023 she was feeling much better. She was tolerating a diet and had slept well. Her blood culture showed no growth. Her blood pressure had improved and she was stable to be discharged home with follow-up in the office Exam Data for Last 24 hours Vital signs and Labs for Last 24 Hours: Temp Pulse Resp BP Pulse Ox O2 Del Method 97.9 F 75 18 157/71 H 97 Room Air 08/07/23 08:00 08/07/23 08:00 08/07/23 08:00 08/07/23 08:00 08/07/23 08:00 08/07/23 12:45 Narrative: Constitutional Constitutional: no acute distress, morbidly obese and cooperative *Routine HEENT Exam Head: Present normocephalic and atraumatic Eye: Present EOMI and PERRL; Absent scleral injection, nystagmus or exophthalmos ENT: Present mucous membranes moist and external ear normal *Routine Neck Exam Neck: Present supple and full ROM; Absent lymphadenopathy Routine Chest/Breast/Axilla Exam Chest wall: Absent tenderness Breast: Absent tenderness Axillae: Absent lymphadenopathy *Routine Respiratory Exam Respiratory: Present CTA bilaterally; Absent wheezes *Routine Cardiovascular Exam Cardiovascular: Present RRR and S4 *Routine Abdominal Exam Abdominal: Present soft, normoactive bowel sounds, tenderness (Mild epigastric) and obese; Absent distended, rebound, guarding, firm, rigid, organomegaly or mass *Routine Rectal Exam Rectal:: deferred *Routine Genitalia Exam Genitalia:: deferred *Routine Extremities Exam Extremities: Present cyanosis, clubbing and edema (Minimal) Routine Back/Spine/Pelvis Exam Back/Spine: Absent CVA tenderness *Routine Skin Exam Skin: Present intact; Absent wounds *Routine Neurological Exam Neurological: Present alert, oriented X3 and CN II-XII intact; Absent sensory deficit, motor deficit or altered mental status Routine Psychiatric Exam Psychiatric: Present normal affect and normal thought process DS: Diagnosis Discharge Diagnosis (1) Acute pancreatitis: Status: Acute Code(s): K85.90 - Acute pancreatitis without necrosis or infection, unspecified (2) Abdominal pain: Status
== END 2023-08-07 13:05 | disposition home or self-care (01) | DRG 440 ==
LOC: ER 08:14 → 2ND 09:07
PROVIDERS: Admitting Provider Family Medicine; Emergency Provider Emergency Medicine; PCP Family Medicine; Visit Provider Family Medicine
DX: K85.90 Acute pancreatitis without necrosis or infection, unspecified (principal); I10 Essential (primary) hypertension
CPT/HCPCS: 36415; 74178; 80053; 80061; 81001; 83605; 83690; 85007; 85025; 87040; 87636; 93005; 99285; J0131; J0696; J2405; Q9966

== ENCOUNTER 2023-08-15 17:34 | Observation (INO) | payer BC, MEDICARE, SELFPAY ==
[2023-08-15 17:47] VITALS: BP 154/76; PULSE 81; RESP 16; TEMP 36.4; O2SAT 99; BMI 43.2
[2023-08-15 18:20] VITALS: O2SAT 98
--- NOTE | 2023-08-15 19:07 | ECG_ITS ---
APPROVED REPORT Exam: Resting ECG HR:67 bpm ECG Measurements Heart Rate 67 AXES IL 191 P 33 QRSd 85 QRS 0 QT 396 T 39 QTc 412 Conclusion SINUS RHYTHM Isolated Q in III - old finding Otherwise NORMAL ECG UNCONFIRMED REPORT Electronically signed by : Reji Resendez MD 08/16/2023 09:53:52
--- NOTE | 2023-08-15 19:14 | CT_ITS ---
PROCEDURE INFORMATION: Exam: CT Abdomen And Pelvis Without Contrast Exam date and time: 08/15/2023 8:25 PM Age: 67 years old Clinical indication: Condition or disease; Pancreatic condition; Pancreatitis TECHNIQUE: Imaging protocol: Computed tomography of the abdomen and pelvis without contrast. Radiation optimization: All CT scans at this facility use at least one of these dose optimization techniques: automated exposure control; mA and/or kV adjustment per patient size (includes targeted exams where dose is matched to clinical indication); or iterative reconstruction. REPORTING DATA: Count of CT and Cardiac NM exams in prior 12 months: This patient has received [address] and 0 known cardiac nuclear medicine studies in the 12 months prior to the current study. COMPARISON: CT ABDOMEN PELVIS WO/W CON 08/05/2023 9:18 AM FINDINGS: Lungs: Patchy mild ground-glass attenuation in the lung bases bilaterally which may represent subsegmental atelectasis from hypoventilatory changes although can not exclude mild basilar edema or pneumonitis. No simin consolidations. Heart: Heart size normal. Mediastinal space: New mild distal esophageal wall thickening suspicious for esophagitis. Consider nonemergent esophagram or endoscopic assessment as clinically indicated. Liver: Normal contour. No mass lesions. No intrahepatic biliary ductal dilatation. Gallbladder and bile ducts: Prior cholecystectomy with no significant dilatation of the common bile duct. Pancreas: Mild-moderate fatty atrophy of the pancreas. Peripancreatic stranding at the head and neck is mildly improved suggesting improving pancreatitis. No fluid collections. No ductal dilatation. Spleen: Normal. No splenomegaly. Adrenal glands: Normal. No adrenal mass. Kidneys and ureters: Unchanged mild bilateral symmetrical perinephric stranding, possibly mild perirenal scarring or edema. No hydronephrosis or hydroureter. No urinary tract stones are identified. Stomach and bowel: The stomach is unremarkable. The small bowel is nondilated with no gross abnormality. The colon is largely contracted which likely contributes to the mildly thick walled appearance. This makes it difficult to exclude mild colitis. No evidence of perforation or abscess. Mild diverticulosis involving the distal colon without evidence of acute diverticulitis. Appendix: No evidence of appendicitis. Intraperitoneal space: No free fluid or air. Vasculature: No acute process. No abdominal aortic aneurysm. Mild calcific atherosclerosis. Lymph nodes: No adenopathy. Urinary bladder: Unremarkable as visualized. Reproductive: Prior hysterectomy. Bones/joints: No acute osseous abnormalities. Soft tissues: Very small fatty umbilical hernia . No evidence of associated bowel herniation or strangulation. IMPRESSION: 1. Mild changes of pancreatitis around the pancreatic head, improved from prior scan. No fluid collections or ductal dilatation. 2. There is new distal esophageal wall thickening suspicious for esophagitis. 3. The colon is largely contracted, probably accounting for the thickened appearance although can not exclude mild colitis. 4. Patchy ground-glass opacities in both lung bases probably relate to subsegmental atelectasis/hypoventilatory changes although can not exclude mild basilar edema or pneumonitis. No consolidations. 5. Additional nonemergent findings detailed above.
--- NOTE | 2023-08-15 19:33 | EXP.HP ---
History of Present Illness *Admission Date: 08/15/23 *Reason for visit:: Acute pancreatitis *History of present illness: This 67-year-old white female was readmitted with acute pancreatitis. She was hospitalized on August 04 through August 07 with an episode of acute pancreatitis. Symptoms had started several days prior to that admission. Her lipase was elevated at 1220. [place] [address]. Her lipids were not elevated. During her hospitalization she stabilized and was discharged on Cefdinir, amlodipine, lisinopril, and hyoscyamine. She is scheduled to see Dr. Huy Beard, stretch box tender next week. She has limited her diet and been able to tolerate some foods but over the past 24 hours her symptoms have recurred. She is very uncomfortable and has had vomiting. She has not run a fever. Her cultures from her hospitalization were negative. She contacted the office of [facility] today stating that she was having recurrent symptoms. She was having pain and vomiting. She was seen in the office. Her white blood cell count was again elevated in the range of 12,000. She had abdominal tenderness particularly in the epigastrium. Bowel sounds were slightly hyperactive. It was felt she needed to be readmitted for control of symptoms and IV fluids. [facility] Disclaimer: The information contained in this section may have been updated after the patient was seen, as this information can be updated by other users. Medical History BMI 45.0-49.9, adult Diverticulosis Endometriosis Hypertension Viral syndrome Surgical History History of appendectomy History of cholecystectomy History of hysterectomy Family History Stomach cancer Prostate cancer Diabetes CHF (congestive heart failure) Heart attack Lung cancer Parkinsons Social History (Updated 08/15/23 @ 17:56 by Raegan Chiang RN) Smoking Status: Never smoker alcohol intake: never current occupational status: employed and other Travel in the last 8 weeks: None Review of Systems Review of Systems Review of systems:: pertinent systems reviewed and negative unless documented below Constitutional Constitutional: Denies chills, Denies fever(s) and Reports other (Nausea and vomiting) Eyes Eyes: Reports system reviewed and no additional complaints, except as documented ENT Ears, Nose, Mouth, and Throat: Reports system reviewed and no additional complaints, except as documented and Denies dizziness *Cardiovascular Cardiovascular: Denies chest pain (But epigastric pain), Denies dyspnea on exertion, Denies edema, Denies irregular heart rhythm and Denies leg edema *Respiratory Respiratory: Denies dyspnea on exertion *Gastrointestinal Gastrointestinal: Reports abdominal pain, Reports bloating, Denies coffee ground emesis, Reports cramping and Denies fecal incontinence *Genitourinary Genitourinary: Reports system reviewed and no additional complaints, except as documented *Musculoskeletal Musculoskeletal: Reports system reviewed and no additional complaints, except as documented Integumentary/Breasts Skin/Breast: Reports system reviewed and no additional complaints, except as documented *Neurologic Neurologic: Reports system reviewed and no additional complaints, except as documented, Denies dizziness and Denies localized weakness Psychiatric Psychiatric: Reports system reviewed and no additional complaints, except as documented Endocrine Endocrine: Reports system reviewed and no additional complaints, except as documented Hematologic/Lymphatic Hematologic/Lymphatic: Reports system reviewed and no additional complaints, except as documented Allergic/Immunologic Allergic/Immunologic: Reports system reviewed and no additional complaints, except as documented Meds Home Medications and A
[2023-08-15 19:43] VITALS: BP 148/59; PULSE 76; RESP 20; TEMP 36.5; O2SAT 100
[2023-08-15 19:53] LABS: Chloride 89 mmol/L (98-107)
[2023-08-15 19:54] LABS: Potassium 4.8 mmoL/L (3.5-5.1); Sodium 125 mmol/L (136-145)
[2023-08-15 19:56] LABS: Alanine Aminotransferase 44 U/L (12-78); Albumin Level 4.5 g/dl (3.5-5.0); Albumin/Globulin Ratio 1.1 (1.1-1.8); Alkaline Phosphatase 123 U/L (38-126); Anion Gap 19.8 mEq/L (5-15); Aspartate Amino Transferase 46 U/L (14-36); Bilirubin,Total 0.8 mg/dl (0.2-1.3); Blood Urea Nitrogen 41 mg/dl (7-17); Calcium 9.7 mg/dl (8.4-10.2); Carbon Dioxide 21 mmol/L (22.0-30.0); Creatinine Clearance Estimated 20 mL/min (50-200); Estimated Glomerular Filt Rate 25 ml/min (>60); GFR (African American) 30 ML/MIN (>60); Glucose 117 mg/dl (74-100); Total Protein,Serum 8.5 g/dl (6.3-8.2)
[2023-08-15 19:56] LABS: POC Glucose,Bedside 116 (70-110)
[2023-08-15 19:57] LABS: Lactic Acid 1.2 mmol/L (0.7-2.1); Magnesium 2.1 mg/dl (1.6-2.3)
[2023-08-15 20:01] LABS: Basophils % 0.2 % (0.1-2.0); Eosinophils # 0.1 K/mm3 (0.0-0.4); Eosinophils % 0.6 % (0.1-12.0); Hematocrit 47.3 % (37.0-47.0); Hemoglobin 15.2 g/dL (12.2-16.2); Lymphocytes # 1.4 K/mm3 (0.7-4.5); Lymphocytes % 7.4 % (10-50); Mean Corpuscular HGB Conc 32.2 g/dL (31.8-35.4); Mean Corpuscular Hemoglobin 28.4 pg (27.0-31.2); Mean Corpuscular Volume 88.2 fl (81-99); Mean Platelet Volume 8.8 fl (7.4-10.4); Monocytes # 0.7 K/mm3 (0.1-1.0); Monocytes % 4.1 % (1.7-9.3); Neutrophils % 87.7 % (37.0-80.0); Platelet Count 456 K/mm3 (142-424); Red Blood Count 5.36 M/mm3 (4.20-5.40); Red Cell Distribution Width 13.3 % (11.5-17.5); White Blood Count 18.3 K/mm3 (4.8-10.8)
[2023-08-15 20:05] LABS: MANUAL DIFFERENTIAL MANUAL DIFFERENTIAL (MANUAL DIFF)
[2023-08-15 20:13] LABS: Troponin I < 0.01 ng/ml (0.00-0.034)
[2023-08-15 20:24] LABS: Lymphocytes % 12 % (10-50); Monocytes % 3 % (2-9); Neutrophils % 84 % (42-76); Platelet Estimate Normal; RBC Morphology Normal; Total Cells Counted 100
[2023-08-15 21:30] LABS: Lipase 676 U/L (23-300)
--- NOTE | 2023-08-15 21:36 | PC.NURSE ---
lab called with critical lipase 676 at 2129, kaley paged at [phone], kaley called at 213 and was notified. NNO
[2023-08-16 02:10] LABS: POC Glucose,Bedside 88 (70-110)
[2023-08-16 04:00] VITALS: BP 143/65; PULSE 69; RESP 18; TEMP 36.6; O2SAT 98; BMI 43.4
[2023-08-16 06:31] LABS: POC Glucose,Bedside 86 (70-110)
--- NOTE | 2023-08-16 07:59 | HMH.PHAINT1 ---
Pharmacy Intervention Comments: MEDICATION RECONCILIATION COMPLETED ON PATIENT USING EXTERNAL FILL HISTORY FROM PHARMACY. -NICHOLAS LOVE, RAVID
[2023-08-16 08:00] VITALS: O2SAT 100
--- NOTE | 2023-08-16 08:18 | EXP.ACUTE.PN ---
Subjective *Date: 08/16/23 *Time: 08:18 Interval history: Patient is a little better this am. She is still having epigastric pain but the tylenol does seem to help. She has been sipping water. She was able to sleep last night. Medical Exam Vital signs and Labs for Last 24 Hours: Vital Signs Temp Pulse Resp BP Pulse Ox O2 Del Method 08/16/23 04:00 97.9 F 69 18 143/65 H 98 Room Air 08/16/23 06:12 Room Air 08/16/23 04:43 Room Air 08/16/23 03:00 Room Air 08/16/23 01:00 Room Air 08/15/23 22:43 Room Air 08/15/23 23:00 Room Air 08/15/23 19:43 97.7 F 76 20 148/59 H 100 Room Air 08/15/23 18:20 98 Room Air 08/15/23 17:53 Room Air 08/15/23 17:47 97.6 F 81 16 154/76 H 99 Room Air Intake and Output 08/15/23 08/16/23 08/16/23 19:59 03:59 11:59 Intake Total 650 / 1525 875 / 1525 Output Total 0 / 0 Balance 650 / 1525 875 / 1525 Intake: Intake, Oral Amount 0 / 0 Intake, Total IV Amount 650 / 1525 875 / 1525 0.9 % Sodium Chloride 1000ML 1, 600 / 1475 875 / 1475 000 ml @ 150 mls/hr IV .Q6H40M OG Rx#:[id number] Ertapenem Sodium 1 gm In 0.9 % 50 / 50 Sodium Chloride 50 ml @ 100 mls /hr IV Q24H GO Rx#:[id number] Output: Output, Urine Amount 0 / 0 Other: Number of Unmeasured Voids 0 Weight 228 lb 9 oz 230 lb 7 oz Patient Weight 08/16/23 11:59 Weight 230 lb 7 oz Laboratory Results - last 24 hr 08/15/23 19:37: WBC 18.3 H, RBC 5.36, Hgb 15.2, Hct 47.3 H, MCV 88.2, MCH 28.4, MCHC 32.2, RDW 13.3, Plt Count 456 H, MPV 8.8, Neut % (Auto) 87.7 H, Lymph % (Auto) 7.4 L, [place] % (Auto) 4.1, Eos % (Auto) 0.6, Baso % (Auto) 0.2, Neut # (Auto) 16.0 H, Lymph # (Auto) 1.4, [place] # (Auto) 0.7, Eos # (Auto) 0.1, Baso # (Auto) 0.0, Total Counted 100, Neutrophils % (Manual) 84 H, Lymphocytes % (Manual) 12, Monocytes % (Manual) 3, Basophils % (Manual) 1.0, Platelet Estimate Normal, RBC Morphology Normal, Sodium 125 L, Potassium 4.8, Chloride 89 L, Carbon Dioxide 21 L, Anion Gap 19.8 H, BUN 41 H, Creatinine 2.00 H, Estimated Creat Clear 20, Estimated GFR 25 L, Est GFR ( Amer) 30 L, Glucose 117 H, Lactate 1.2, Calcium 9.7, Magnesium 2.1, Total Bilirubin 0.8, AST 46 H, ALT 44, Alkaline Phosphatase 123, Troponin I < 0.01, Total Protein 8.5 H, Albumin 4.5, Globulin 4.0 H, Albumin/Globulin Ratio 1.1 08/15/23 19:40: Lipase 676 H 08/15/23 19:49: POC Glucose 116 H 08/16/23 01:52: POC Glucose 88 08/16/23 06:24: POC Glucose 86 I & O for Labs for Last 24 Hours: Intake & Output 08/13/23 08/14/23 08/15/23 08/16/23 11:59 11:59 11:59 11:59 Intake Total 1525 / 1525 Output Total 0 / 0 Balance 1525 / 1525 Weight 230 lb 7 oz Radiology Reports for the Last 24 Hours: CT Abdomen/Pelvis IMPRESSION: 1. Mild changes of pancreatitis around the pancreatic head, improved from prior scan. No fluid collections or ductal dilatation. 2. There is new distal esophageal wall thickening suspicious for esophagitis. 3. The colon is largely contracted, probably accounting for the thickened appearance although can not exclude mild colitis. 4. Patchy ground-glass opacities in both lung bases probably relate to subsegmental atelectasis/hypoventilatory changes although can not exclude mild basilar edema or pneumonitis. No consolidations. 5. Additional nonemergent findings detailed above. Constitutional: Present no acute distress Respiratory: Present CTA bilaterally Cardiac: Present Reg Rate and Rhythm GI: Present soft, distention, tenderness (epigastric) and normal bowel sounds; Absent guarding or rebound Extremities: Absent edema Skin: Present intact Neuro: Present alert and awake Assessment and Plan *Assessment and plan (1) Acute pancreatitis: Status: Acute Category: Medical Code(s): K85.90 - Acute pancreatitis without necrosis or infection, unspecified (2) Hypertension: Status: Acute
[2023-08-16 08:23] VITALS: BP 160/70; PULSE 79; RESP 18; TEMP 36.6; O2SAT 100
[2023-08-16 14:37] LABS: Basophils % 0.2 % (0.1-2.0); Eosinophils # 0.2 K/mm3 (0.0-0.4); Eosinophils % 1.3 % (0.1-12.0); Hematocrit 44.7 % (37.0-47.0); Hemoglobin 14.1 g/dL (12.2-16.2); Lymphocytes # 1.4 K/mm3 (0.7-4.5); Lymphocytes % 10.1 % (10-50); Mean Corpuscular HGB Conc 31.5 g/dL (31.8-35.4); Mean Corpuscular Hemoglobin 28.3 pg (27.0-31.2); Mean Corpuscular Volume 89.7 fl (81-99); Mean Platelet Volume 8.8 fl (7.4-10.4); Monocytes # 0.7 K/mm3 (0.1-1.0); Monocytes % 4.8 % (1.7-9.3); Neutrophils # 11.7 K/mm3 (1.8-7.8); Neutrophils % 83.6 % (37.0-80.0); Platelet Count 407 K/mm3 (142-424); Red Blood Count 4.99 M/mm3 (4.20-5.40); Red Cell Distribution Width 13.5 % (11.5-17.5)
[2023-08-16 14:41] LABS: Alanine Aminotransferase 33 U/L (12-78); Albumin Level 3.9 g/dl (3.5-5.0); Albumin/Globulin Ratio 1.1 (1.1-1.8); Alkaline Phosphatase 104 U/L (38-126); Anion Gap 14.2 mEq/L (5-15); Aspartate Amino Transferase 31 U/L (14-36); Bilirubin,Total 0.4 mg/dl (0.2-1.3); Blood Urea Nitrogen 27 mg/dl (7-17); Calcium 8.7 mg/dl (8.4-10.2); Carbon Dioxide 22 mmol/L (22.0-30.0); Chloride 100 mmol/L (98-107); Creatinine Clearance Estimated 29 mL/min (50-200); Estimated Glomerular Filt Rate 37 ml/min (>60); GFR (African American) 45 ML/MIN (>60); Globulin 3.4 g/dL (1.3-3.2); Glucose 90 mg/dl (74-100); Lipase 452 U/L (23-300); Potassium 4.2 mmoL/L (3.5-5.1); Sodium 132 mmol/L (136-145); Total Protein,Serum 7.3 g/dl (6.3-8.2)
[2023-08-16 16:00] VITALS: BP 160/69; PULSE 79; RESP 18; TEMP 37.2; O2SAT 94
[2023-08-16 20:00] VITALS: BP 139/64; PULSE 80; RESP 19; TEMP 36.4; O2SAT 93
[2023-08-16 20:04] LABS: POC Glucose,Bedside 72 (70-110)
--- NOTE | 2023-08-16 20:50 | PC.NURSE ---
LAC IV removed. 22g placed in the right wrist.
[2023-08-17 00:47] LABS: POC Glucose,Bedside 73 (70-110)
[2023-08-17 04:00] VITALS: BP 139/79; PULSE 77; RESP 18; TEMP 36.5; O2SAT 99; BMI 43.7
--- NOTE | 2023-08-17 06:32 | PC.NURSE ---
notified majo at 0625 of unrelieved neck pain face to face. NNO
[2023-08-17 07:01] LABS: POC Glucose,Bedside 63 (70-110)
[2023-08-17 07:35] VITALS: BP 155/78; PULSE 82; RESP 18; TEMP 36.5; O2SAT 100
--- NOTE | 2023-08-17 11:26 | EXP.ACUTE.PN ---
Subjective *Date: 08/17/23 *Time: 11:26 Interval history: She is better. Lipase was 452 yesterday. White blood cell count was 14,000. She is requiring very little pain medicine depending mostly on Tylenol. She is still NPO. I will order low-fat diet. Saline lock IV. Medical Exam Vital signs and Labs for Last 24 Hours: Vital Signs Temp Pulse Resp BP Pulse Ox O2 Del Method 08/17/23 11:00 Room Air 08/17/23 08:36 Room Air 08/17/23 08:00 Room Air 08/17/23 07:35 97.7 F 82 18 155/78 H 100 Room Air 08/17/23 04:00 97.7 F 77 18 139/79 99 Room Air 08/17/23 04:25 Room Air 08/17/23 06:28 Room Air 08/17/23 03:00 Room Air 08/17/23 01:00 Room Air 08/16/23 23:00 Room Air 08/16/23 21:00 Room Air 08/16/23 20:00 Room Air 08/16/23 20:00 97.6 F 80 19 139/64 93 L Room Air 08/16/23 17:28 Room Air 08/16/23 16:00 98.9 F 79 18 160/69 H 94 L Room Air 08/16/23 15:35 Room Air 08/16/23 13:44 Room Air 08/16/23 12:28 Room Air Intake and Output 08/16/23 08/17/23 08/17/23 19:59 03:59 11:59 Intake Total 1250 2029 0 2029 Output Total 0 / 0 0 / 0 0 / 0 Balance 1249 Intake: Intake, Oral Amount 30 / 30 0 / 30 Intake, Total IV Amount 1250 / 2000 750 / 2000 0.9 % Sodium Chloride 1000ML 1, 1200 / 1950 750 / 1950 000 ml @ 150 mls/hr IV .Q6H40M [facility] Rx#:[id number] Ertapenem Sodium 1 gm In 0.9 % 50 / 50 Sodium Chloride 50 ml @ 100 mls /hr IV Q24H O[facility] Rx#:[id number] Output: Output, Urine Amount 0 / 0 0 / 0 0 / 0 Other: Number of Unmeasured Voids 0 1 0 Weight 231 lb 12.8 oz Patient Weight 08/17/23 11:59 Weight 231 lb 12.8 oz Laboratory Results - last 24 hr 08/16/23 14:16: WBC 14.0 H, RBC 4.99, Hgb 14.1, Hct 44.7, MCV 89.7, MCH 28.3, MCHC 31.5 L, RDW 13.5, Plt Count 407, MPV 8.8, Neut % (Auto) 83.6 H, Lymph % (Auto) 10.1, [place] % (Auto) 4.8, Eos % (Auto) 1.3, Baso % (Auto) 0.2, Neut # (Auto) 11.7 H, Lymph # (Auto) 1.4, [place] # (Auto) 0.7, Eos # (Auto) 0.2, Baso # (Auto) 0.0, Sodium 132 L, Potassium 4.2, Chloride 100, Carbon Dioxide 22, Anion Gap 14.2, BUN 27 H D, Creatinine 1.40 H D, Estimated Creat Clear 29, Estimated GFR 37 L, Est GFR ( Amer) 45 L D, Glucose 90 D, Calcium 8.7, Total Bilirubin 0.4, AST 31 D, ALT 33, Alkaline Phosphatase 104, Total Protein 7.3, Albumin 3.9 D, Globulin 3.4 H, Albumin/Globulin Ratio 1.1, Lipase 452 H 08/16/23 19:35: POC Glucose 72 08/17/23 00:35: POC Glucose 73 08/17/23 06:38: POC Glucose 63 L I & O for Labs for Last 24 Hours: Intake & Output 08/14/23 08/15/23 08/16/23 08/17/23 11:59 11:59 11:59 11:59 Intake Total 1525 / 1525 2029 Output Total 0 / 0 0 / 0 Balance 1525 / 1525 2029 Weight 230 lb 7 oz 231 lb 12.8 oz Head: Present normocephalic Neck: Present normal inspection Respiratory: Present CTA bilaterally Cardiac: Present Regular Rate and Regular Rhythm GI: Present soft and tenderness (Mild epigastric tenderness); Absent guarding, rebound or rigidity Rectal (female): Present deferred (female): Present deferred Extremities: Absent edema Skin: Present intact; Absent jaundice Neuro: Present alert and oriented x 3 Assessment and Plan *Assessment and plan (1) Acute pancreatitis: Status: Acute Category: Medical Code(s): K85.90 - Acute pancreatitis without necrosis or infection, unspecified (2) BMI 45.0-49.9, adult: Status: Acute Category: Medical Code(s): Z68.42 - Body mass index [BMI] 45.0-49.9, adult (3) Hypertension: Status: Acute Category: Medical Code(s): I10 - Essential (primary) hypertension (4) Abdominal pain: Status: Acute Category: Medical Code(s): R10.9 - Unspecified abdominal pain Plan Saline lock IV. Low-fat diet.
[2023-08-17 11:52] LABS: Basophils # 0.1 K/mm3 (0-0.2); Basophils % 0.4 % (0.1-2.0); Eosinophils # 0.1 K/mm3 (0.0-0.4); Hematocrit 42.7 % (37.0-47.0); Hemoglobin 13.3 g/dL (12.2-16.2); Lymphocytes # 1.1 K/mm3 (0.7-4.5); Lymphocytes % 9.6 % (10-50); Mean Corpuscular HGB Conc 31.2 g/dL (31.8-35.4); Mean Corpuscular Hemoglobin 28.2 pg (27.0-31.2); Mean Corpuscular Volume 90.2 fl (81-99); Mean Platelet Volume 8.3 fl (7.4-10.4); Monocytes # 0.5 K/mm3 (0.1-1.0); Monocytes % 3.9 % (1.7-9.3); Neutrophils # 9.9 K/mm3 (1.8-7.8); Neutrophils % 85.1 % (37.0-80.0); Platelet Count 361 K/mm3 (142-424); Red Blood Count 4.73 M/mm3 (4.20-5.40); Red Cell Distribution Width 13.6 % (11.5-17.5); White Blood Count 11.7 K/mm3 (4.8-10.8)
--- NOTE | 2023-08-17 11:55 | PC.NURSE ---
COURTESY NOTE: rounded on pt while providing lunch tray, pt had no requests at this time.
[2023-08-17 11:56] LABS: MANUAL DIFFERENTIAL MANUAL DIFFERENTIAL (MANUAL DIFF)
[2023-08-17 12:03] LABS: Lipase 470 U/L (23-300)
[2023-08-17 12:28] LABS: Eosinophils % 1 % (0-3); Lymphocytes % 12 % (10-50); Monocytes % 4 % (2-9); Neutrophils % 83 % (42-76); Platelet Estimate Normal; RBC Morphology Normal; Total Cells Counted 100
[2023-08-17 13:47] LABS: POC Glucose,Bedside 108 (70-110)
[2023-08-17 15:17] VITALS: BP 161/70; PULSE 68; RESP 18; TEMP 36.5; O2SAT 99
--- NOTE | 2023-08-17 16:10 | PC.NURSE ---
A&OX4. TOLERATING RA WELL. PT HAS HAD NO C/O THUS FAR. HAS HAD 1 SMALL BM. TOLERATED DIET WELL THUS FAR. UP INDEPENDENTLY IN ROOM. WASHED OFF THIS SHIFT. VSS.
[2023-08-17 18:43] LABS: POC Glucose,Bedside 126 (70-110)
[2023-08-17 20:00] VITALS: BP 157/75; PULSE 84; RESP 18; TEMP 36.4; O2SAT 94
[2023-08-18 01:24] LABS: POC Glucose,Bedside 83 (70-110)
[2023-08-18 04:00] VITALS: BP 149/82; PULSE 67; RESP 18; TEMP 36.6; O2SAT 98; BMI 43.4
[2023-08-18 07:25] LABS: POC Glucose,Bedside 85 (70-110)
[2023-08-18 07:35] VITALS: BP 161/72; PULSE 69; RESP 18; TEMP 36.6; O2SAT 99
--- NOTE | 2023-08-18 13:46 | EXP.ACUTE.PN ---
Subjective *Date: 08/18/23 *Time: 13:46 Interval history: She feels better and is doing better. She has been able to tolerate limited diet. She has a saline lock in place since yesterday. Her lipase was still elevated yesterday at 470. Her white blood cell count was slightly elevated yesterday at 11.7. I will discharge her today. Follow-up will be arranged tomorrow for gastroenterology. I hope she can be seen This week. Follow-up will also be in [facility] office. Medical Exam Vital signs and Labs for Last 24 Hours: Vital Signs Temp Pulse Resp BP Pulse Ox O2 Del Method 08/18/23 11:00 Room Air 08/18/23 09:00 Room Air 08/18/23 08:00 Room Air 08/18/23 07:35 97.9 F 69 18 161/72 H 99 Room Air 08/18/23 06:51 Room Air 08/18/23 05:00 Room Air 08/18/23 04:00 97.9 F 67 18 149/82 H 98 Room Air 08/18/23 03:00 Room Air 08/18/23 01:00 Room Air 08/17/23 23:00 Room Air 08/17/23 21:00 Room Air 08/17/23 20:00 97.6 F 84 18 157/75 H 94 L Room Air 08/17/23 18:37 Room Air 08/17/23 17:00 Room Air 08/17/23 14:47 Room Air 08/17/23 15:17 97.7 F 68 18 161/70 H 99 Room Air Intake and Output 08/18/23 08/18/23 08/18/23 03:59 11:59 19:59 Intake Total 750 / 2280 1530 / 2280 Output Total 200 / 200 Balance 750 / 2080 1330 / 2080 Intake: Intake, Oral Amount 480 / 480 Intake, Total IV Amount 750 / 1800 1050 / 1800 0.9 % Sodium Chloride 1000ML 1, 750 / 1800 1050 / 1800 000 ml @ 150 mls/hr IV .Q6H40M [facility] Rx#:[id number] Output: Output, Urine Amount 200 / 200 Other: Number of Unmeasured Voids 0 Weight 230 lb 6 oz Laboratory Results - last 24 hr 08/17/23 13:39: POC Glucose 108 08/17/23 18:36: POC Glucose 126 H 08/18/23 01:17: POC Glucose 83 08/18/23 07:19: POC Glucose 85 I & O for Labs for Last 24 Hours: Intake & Output 08/16/23 08/17/23 08/18/23 08/19/23 11:59 11:59 11:59 11:59 Intake Total 1525 / 1525 20290 Output Total 0 / 0 0 / 0 200 / 200 Balance 1525 / 1525 2029 Weight 230 lb 7 oz 231 lb 12.8 oz 230 lb 6 oz Microbiology Reports for the Last 24 Hours: Microbiology 08/15/23 19:37 Blood Blood Culture - Preliminary NO GROWTH AFTER 48 HOURS 08/15/23 19:37 Blood Blood Culture - Preliminary NO GROWTH AFTER 48 HOURS Head: Present normocephalic ENT: Present normal exam Neck: Present normal inspection Respiratory: Present CTA bilaterally Cardiac: Present Regular Rate and Regular Rhythm GI: Present soft and normal bowel sounds; Absent tenderness, guarding, rebound, rigidity or organomegaly Rectal (female): Present deferred (female): Present deferred Extremities: Present edema (Minimal) Skin: Present intact; Absent jaundice Neuro: Present alert and oriented x 3 Assessment and Plan *Assessment and plan (1) Acute pancreatitis: Status: Acute Category: Medical Code(s): K85.90 - Acute pancreatitis without necrosis or infection, unspecified (2) Abdominal pain: Status: Acute Category: Medical Code(s): R10.9 - Unspecified abdominal pain (3) BMI 45.0-49.9, adult: Status: Acute Category: Medical Code(s): Z68.42 - Body mass index [BMI] 45.0-49.9, adult (4) Hypertension: Status: Acute Category: Medical Code(s): I10 - Essential (primary) hypertension (5) Bandemia without diagnosis of specific infection: Status: Acute Category: Medical Code(s): D72.825 - Bandemia Plan Discharge. To resume Cefdinir And hyoscyamine. Continue pantoprazole. To call [facility] tomorrow to arrange for follow-up. Notify of any difficulties or recurrent symptoms.
--- NOTE | 2023-08-18 14:39 | HMH.PHAINT1 ---
Pharmacy Intervention Comments: DISCHARGE MEDICATION COUNSELING PROVIDED. DISCUSSED STARTING PROTONIX (TAKE IN THE MORNING, 30-60 MINUTES BEFORE BREAKFAST, MAY CAUSE A HEADACHE). PATIENT VERBALIZED NO QUESTIONS AT THIS TIME.
[2023-08-18 15:31] VITALS: BMI 43.2
--- NOTE | 2023-08-19 15:27 | CARE MANAGER ---
Contacted patient related to hospital discharge. She states she is doing well and denies any questions or concerns. She picked up her medication and has made follow up appointments. LEELEE Topete
--- NOTE | 2023-08-21 10:12 | EXP.DC.SUM ---
General Admission date:: 08/15/23 Discharge date: 08/18/23 HPI HPI HPI: This 67-year-old white female was readmitted with acute pancreatitis. She was hospitalized on August 04 through August 07 with an episode of acute pancreatitis. Symptoms had started several days prior to that admission. Her lipase was elevated [place] 1220[place] [address]. Her lipids were not elevated. During her hospitalization she stabilized and was discharged on Cefdinir, amlodipine, lisinopril, and hyoscyamine. She is scheduled to see Dr. Huy Beard, cream gatherer next week. She has limited her diet and been able to tolerate some foods but over the past 24 hours her symptoms have recurred. She is very uncomfortable and has had vomiting. She has not run a fever. Her cultures from her hospitalization were negative. She contacted the office of [facility] today stating that she was having recurrent symptoms. She was having pain and vomiting. She was seen in the office. Her white blood cell count was again elevated in the range of 12,000. She had abdominal tenderness particularly in the epigastrium. Bowel sounds were slightly hyperactive. It was felt she needed to be readmitted for control of symptoms and IV fluids. Hospital Course Hospital Course Hospital Course: The patient was kept n.p.o. and started on IV fluids and IV antibiotics. Dr. Mathew did make contact with Dr. Huy Beard of gastroenterology. He stated he would be willing to accept the patient on transfer, but the patient would be under the care of the hospitalist at [facility] through the weekend and no endoscopy would be planned with her illness. He would be unavailable for consultation until the first of the week. She did begin having some improvement in her pain and was therefore kept at [facility]. She had a CT repeated which showed perhaps less inflammation. Her lipase was 679 which was significantly less than the 1220 from last admission. Her white blood cell count was elevated, therefore she was started on Invanz. Throughout her stay, she required very little pain medication and mostly took only Tylenol. By 08/17/2023 a low-fat diet was ordered. By 08/18/2023 she was feeling much better and able to tolerate a limited diet. She was stable to be discharged and will follow-up with gastroenterology. Her blood cultures returned normal. She will resume cefdinir and hyoscyamine at home. Exam Data for Last 24 hours Vital signs and Labs for Last 24 Hours: Temp Pulse Resp BP Pulse Ox O2 Del Method 97.9 F 69 18 161/72 H 99 Room Air 08/18/23 07:35 08/18/23 07:35 08/18/23 07:35 08/18/23 07:35 08/18/23 07:35 08/18/23 13:00 I & O for Last 24 hours: Intake & Output 08/18/23 08/19/23 08/20/23 08/21/23 11:59 11:59 11:59 11:59 Intake Total 2280 / 2280 Output Total 200 / 200 0 / 0 Balance 2080 / 2080 0 / 0 Weight 230 lb 6 oz 229 lb 4.492 oz Microbiology Reports for the Last 24 Hours: Microbiology 08/15/23 19:37 Blood Blood Culture - Final NO GROWTH AFTER 5 DAYS 08/15/23 19:37 Blood Blood Culture - Final NO GROWTH AFTER 5 DAYS Narrative: Constitutional Constitutional: moderate distress (Nausea and vomiting.Abdominal pain) *Routine HEENT Exam Head: Present normocephalic Eye: Present PERRL ENT: Present mucous membranes dry and oropharynx clear *Routine Neck Exam Neck: Present supple and full ROM Routine Chest/Breast/Axilla Exam Chest wall: Absent tenderness *Routine Respiratory Exam Respiratory: Present CTA bilaterally; Absent accessory muscle use or respiratory distress *Routine Cardiovascular Exam Cardiovascular: Present RRR; Absent murmur *Routine Abdominal Exam Abdominal: Present soft, tenderness (Particularly in Epigastrium) and distended; Absent rebound, guarding or mass *Routine Rectal Exam Rectal:: deferred
== END 2023-08-18 16:15 | disposition home or self-care (01) ==
PROVIDERS: Admitting Provider Family Medicine; PCP Family Medicine; Visit Provider Family Medicine
DX: K85.90 Acute pancreatitis without necrosis or infection, unspecified (principal); I10 Essential (primary) hypertension; Z79.899 Other long term (current) drug therapy; R10.13 Epigastric pain; D72.825 Bandemia
CPT/HCPCS: 36415; 74176; 80053; 82962; 83605; 83690; 83735; 84484; 85007; 85025; 87040; 93005; G0378; J1335; J2405

== ENCOUNTER 2024-03-12 17:41 | Outpatient (CLI) | payer BC, MEDICARE, SELFPAY ==
--- NOTE | 2024-03-12 17:52 | XR_ITS ---
PROCEDURE INFORMATION: Exam: XR Cervical Spine Exam date and time: 03/12/2024 5:54 PM Age: 68 years old Clinical indication: Other: Bilat shoulder pain; Patient HX: States pain in bilat arms, worse when lying down TECHNIQUE: Imaging protocol: Radiologic exam of the cervical spine. Views: 4 or 5 views. COMPARISON: No relevant prior studies available. FINDINGS: Bones/joints: No evidence of acute fracture or malalignment. Multi-level degenerative disc disease, most prominent at C5-C6 where there is significant disc space narrowing. Degenerative uncovertebral and facet hypertrophy results in moderate to severe neuroforaminal narrowing on the right at C3-C4 and C5-C6 and mild neuroforaminal narrowing on the left at C3-C4 and from C5-C7. Soft tissues: Unremarkable. IMPRESSION: 1. No evidence of acute osseous abnormality in the cervical spine. 2. Multi-level degenerative changes, as above.
== END 2024-03-12 23:59 | disposition home or self-care (01) ==
LOC: RAD 17:45
PROVIDERS: PCP Psychiatry & Neurology Sleep Medicine; Visit Provider Psychiatry & Neurology Sleep Medicine
DX: M54.2 Cervicalgia (principal); M25.511 Pain in right shoulder; M25.512 Pain in left shoulder
CPT/HCPCS: 72050

== ENCOUNTER 2024-06-23 16:00 | Outpatient (RCR) | payer BC, SELFPAY ==
--- NOTE | 2024-04-07 18:15 | HMH.PTOPEV ---
PT Outpatient Evaluation Rehab PT Outpatient Evaluation Start: 04/07/24 16:32 Freq: Status: Active Protocol: Document 04/07/24 16:32 AMBERVANESSA (Rec: 04/07/24 18:15 CHRISTINA [id number]) E-signed By Viktoriya Godinez, PT Outpatient Therapy Subjective History Subjective History Pt is a 68 y/o female who reports onset of R>L lateral shoulder pain since [place]. Pt denies known trauma or injury. Pt also reports mild upper trapezius pain/tightness but denies true neck pain. Pt states shoulder pain would often ache to her elbows as well, denies more distal UE syptoms or paresthesia. Pt had a cervical spine radiograph on 03/12/24 with findings of No evidence of acute fracture or malalignment. Multi-level degenerative disc disease, most prominent at C5-C6 where there is significant disc space narrowing. Degenerative uncovertebral and facet hypertrophy results in moderate to severe neuroforaminal narrowing on the right at C3-C4 and C5-C6 and mild neuroforaminal narrowing on the left at C3-C4 and from C5-C7. Pt denies having imaging of her shoulder . Pt states she was prescribed steroids which helped the R shoulder pain while she was taking them and abolished L shoulder pain. Pt reports continued right lateral shoulder pain with lying on the R side, carrying objects like groceries or her purse by her side, pulling herself into her truck, and prolonged working on her computer. Pt also reports she feels a non- painful catch in her right shoulder with raising it and lowering it from a raised position. Pt reports the shoulder is stiff in the morning time but pain is overall worse at night time. R handed Medical History: Hypertension + Median N tension test RUE New diagnosis of cancer in past 12 No months? Chief Complaint Pain,Stiff Symptom Type Ache,Dull Symptoms Relieved By Rest/Positioning,OTC Meds Symptoms Aggravated By Physical Activity,Lifting Prior Functional Limitations None Current Functional Limitations Lifting,Housework,Desk Work/ Reading,Sleeping,Recreation Activity Symptom Description Constant but Variable Level of pain today (0-10) 3 Pain scale - at its best (0-10) 1 Pain scale - at its worst (0-10) 6 Cervical Eval Palpation Cervical Muscles R Cervical Paraspinal,R Upper Trapezius,L Upper Trapezius Cervical/Thoracic Palpation Findings Tenderness Flexibility Deficits Upper Trapezius Muscle Length (L) Mild Tightness,(R) Moderate Tightness Levaetor Scapulae Muscle Length (L) Mild Tightness,(R) Moderate Tightness Pectoralis Major Muscle Length (R) Moderate Tightness,(L) Moderate Tightness Passive Joint Mobility Cervical PIVM Dec: R C4/5 L C4/5 R C5/6 L C5/6 R C6/7 L C6/7 AROM Cervical Spine Extension Active Range of 25 Motion (degrees) Cervical Spine Flexion Active Range of 45 Motion (degrees) Cervical Spine Right Lateral Flexion 40 Active Range of Motion (degrees) Cervical Spine Left Lateral Flexion 30 Active Range of Motion (degrees) Cervical Spine Right Rotation Active 55 Range of Motion (degrees) Cervical Spine Left Rotation Active 50 Range of Motion (degrees) MMT Right Deltoid (C5) 4- Good- Biceps Brachii Strength Grade 5 Normal Wrist Extension Strength Grade 5 Normal Triceps Brachii Strength Grade 5 Normal Wrist Flexion Strength Grade 5 Normal Extensor Pollicis Longus Strength Grade 5 Normal Finger Abduction Strength Grade 5 Normal Altered Sensation Bilateral Comment equal and intact to light touch sensation bilaterally Special Test C-Spine Foraminal Compression (Spurling) Negative Left,Negative Right Test C-spine Verterbral Accessory Movements Central P/A Marana,Right P/A that Elicit Symptoms Marana C-Spine Compression Test Negative Left,Negative Right Shoulder/Elbow Eval Shoulder Objective Measurements Palpation Tenderness Shoulder Palpation Findings Tenderness Shoulder Palpation Overall Comment R greater tuberosity, spine of scapula, deltoid Shoulder ROM Right full ROM shoulder exam standard right Shoulder MMT Lower Trapezius Strength Grade 3+ Fair+ Middle Trapezius Strength Grade 4- Good- Rhomboids Strength Grade 4- Good- Upper Trapezius/Levator Scapulae 4 Good Shoulder Abduction Strength Grade 4- Good- Shoulder Extension Strength Grade 4 Good Shoulder Flexion Strength Grade 4 Good Shoulder External Rotation Strength 4- Good- Grade Shoulder Internal Rotation Strength 4 Good Grade Shoulder Special Tests Shoulder Drop Arm Test Negative Right Shoulder Cross-Over Impingement Test Negative Right Shoulder Empty Can (Supraspinatus) Test Positive Right Shoulder Schmidt-Dre Impingement Negative Right Test Shoulder Speed's Sign Test Negative Right Elbow Objective Measurements Neck Disability Index Neck Disability Index Section 1: Pain Intensity The pain is moderate at the moment Section 2: Personal Care (washing, I can look after myself dressing, etc.) normally without causing extra pain Section 3: Lifting Pain prevents me from lifting heavy weights, but I can manage light to Section 4: Reading I can read as much as I want to with no pain in my neck Section 5: Headaches I have no headaches at all Section 6: Concentration I can concentrate fully when I want to with no difficulty Section 7: Work I can only do my usual work, but no more Section 8: Driving I can drive my car without any neck pain Section 9: Sleeping My sleep is midly disturbed (1 -2 hrs sleepless) Section 10: Recreation I am able to engage in most, but not all of my usual recreation NDI Score 10 Outpatient Therapy Assessment Impairments Problems/Impairmments Palpation Tenderness,Impaired Range of Motion,Impaired Strength,Impaired Lifting, Impaired Household Care, Impaired Recreational Activities,Impaired Work Activities,Subjective C/O Pain ,Impaired Self Care/Self Management Prognosis Rehab Potential Good Clinical Impression Consistent with Diagnosis Yes Consistent with cervicalgia & RTC tendinopathy Short Term Goals Number of Weeks 3 Increase Range of Motion Yes: Improve L cervical AROM rot & LF by 5 degrees Increase Strength Yes: Improve R shoulder abd and ER MMT to 4/5 grossly to assist with function Decrease Subjective C/O Pain Yes: Improve pain at worst to 4/10 to improve overall QOL Improve Self Care/Self Management Yes Patient to be Ind w/ HEP Yes Wedding Consultant Goals Number of Weeks 6 Decreased Palpation Tenderness Yes: 0-1/4 TTP of R cervical mm, greater tuberosity Increase Range of Motion Yes: Improve cervical AROM to WFL Increase Strength Yes: Improve RUE/scap strength to 4-4+/5 grossly to assist with function Restore Ability to Lift Objects to Waist Yes: report ability to carry Level groceries/purse in R hand with pain 2/10 Improve Neck Disability Index Score Yes Decrease Subjective C/O Pain Yes: Improve pain at worst to 2/10 to improve overall QOL Patient to be Ind w/ Advanced HEP Yes Outpatient Therapy Plan of Care Treatment Plan May Include Therapeutic Exercise Including Home Yes Exercise Program Manual Therapy Techniques Yes Neuromuscular Re-education Yes Therapeutic Activities to Return to Yes Previous Functional/Work Level ADL/Self Care Education Yes Mechanical Traction Yes Dry Needling Yes Thermal Modalities Yes Electrical Stimulation Yes Ultrasound/Phonophoresis Yes Iontophoresis Yes Massage Yes Eval/Re-Eval Yes Frequency Times per week 2 Duration Number of Weeks 4-6 Addendums This patient is a candidate for social No or vocational rehab? Patient/Guardian verbally acknowledges Yes understanding of treatment program and consents to further treatment? Patient/Guardian verbally acknowledges Yes understanding of diagnosis, prognosis and goals for treatment? Eval Complexity PT Charges 70648 - Low Complexity PHYSICIAN CERTIFICATION: I certify the specified therapy services for Samia Martinez are required, authorized, and reviewed every 30 days.
--- NOTE | 2024-05-07 17:40 | HMH.RHREAS ---
Rehab Reassessment Rehab OP Re-assessment Start: 04/07/24 16:32 Freq: Status: Active Protocol: Document 05/07/24 16:33 CHRISTINA (Rec: 05/07/24 17:39 DIDIERFLORENTIN [id number]) E-signed By Viktoriya Godinez PT Neck Disability Index Neck Disability Index Section 1: Pain Intensity The pain is very mild at moment Section 2: Personal Care (washing, I can look after myself dressing, etc.) normally without causing extra pain Section 3: Lifting Pain prevents me from lifting heavy weights, but I can manage light to Section 4: Reading I can read as much as I want to with slight pain in my neck Section 5: Headaches I have no headaches at all Section 6: Concentration I can concentrate fully when I want to with no difficulty Section 7: Work I can do most of my usual work , but no more Section 8: Driving I can drive my car without any neck pain Section 9: Sleeping My sleep is moderately disturbed (2-3 hrs. sleepless) Section 10: Recreation I am able to engage in all my recreation activities with some pain in NDI Score 11 Rehab Re-assessment Subjective Subjective Pt reports she feels 50% improved since starting PT. Pt reports continued stiffness /soreness of the right lateral shoulder that worsens with carrying items. Pt reports pain is worse at night time. Pt reports pain at worst as 5/ 10 within the last week described as ache. Pt reports placing her arm out to the side or above her head helps ease with pain. Pt denies numbness/tingling. Pt states she will be out of town next week but will perform her HEP while away. Objective Objective Notes Palpation: 2/4 TTP of R>L cervical mm and AC joint Cervical AROM: flex 40, ext 35 , RLF 35, LLF 35, Rrot 60, Lrot 50 Shoulder AROM: WFL RUE MMT: shoulder flexion 4+/5 , shoulder abduction 4+/5, shoulder extension 4+/5, shoulder ER 4/5, shoulder IR 4 +/5 Negative Spurlings/compression , Negative shoulder impingement special tests this date Assessment Assessment Notes Pt has attended 5 PT visits consisting of aerobic exercise , cervical mobility/stretching , neural glides, postural re- education, scapular strengthening, manual therapy, modalities and HEP with good tolerance. Pt continues to demonstrate neck stiffness and limited cervical AROM in all planes. Pt demonstrated slight ROM improvement with cervical extension and R rotation this date. Pt also demonstrated improved UE strength. Overall the pt would continue to benefit from skilled PT to further improve subjective report of pain, cervical AROM, strength and functional activity tolerance to improve overall QOL. Patient goals met ST/5 Goals Not Met cervical AROM, p! severity, LTG Revised Goals n/a Plan Plan Continue initial POC Frequency of Therapy 2x/week Duration of therapy 4 more weeks Time and Billing Re-Eval Time 14 Re-Eval Billing Units 1 PHYSICIAN CERTIFICATION: I certify the specified therapy services for Samia Martinez are required, authorized, and reviewed every 30 days.
--- NOTE | 2024-06-10 11:02 | HMH.RHREAS ---
Rehab Reassessment Rehab OP Re-assessment Start: 04/07/24 16:32 Freq: Status: Active Protocol: Document 06/10/24 10:56 AMELIA (Rec: 06/10/24 11:02 PHORJOSE M [id number]) E-signed By Terrell Winn, PT Neck Disability Index Neck Disability Index Section 1: Pain Intensity The pain is moderate at the moment Section 2: Personal Care (washing, I can look after myself dressing, etc.) normally but it causes extra pain Section 3: Lifting I can only lift very light weights Section 4: Reading I can read as much as I want to with no pain in my neck Section 5: Headaches I have no headaches at all Section 6: Concentration I can concentrate fully when I want to with no difficulty Section 7: Work I can do most of my usual work , but no more Section 8: Driving I can drive my car without any neck pain Section 9: Sleeping My sleep is midly disturbed (1 -2 hrs sleepless) Section 10: Recreation I am able to engage in a few of my usual recreation activities because NDI Score 14 Rehab Re-assessment Subjective Subjective Pt reports a tight pulling sensation around shoulder joint with extension or lifting objects around 10lbs. States her neck is doing well. Gabapentin is helping her sleep better. Feels that she is getting better but may need to go back to her MD to discuss an MRI for her shoulder. Objective Objective Notes Palpation: 2/4 TTP of R UT/lev scap Cervical AROM: flex 45, ext 35 , RLF 35, LLF 35, Rrot 70, Lrot 65 Shoulder AROM: WFL RUE MMT: shoulder flexion 4+/5 , shoulder abduction 4+/5, shoulder extension 4+/5, shoulder ER 4+/5, shoulder IR 4+/5 Negative Spurlings/compression , Negative shoulder impingement special tests this date Assessment Progress Assessment Progressing as Expected Assessment Notes Pt presents with continued improvement in her cervical spine AROM and UE strength. However, she continues to have difficulty with pain during ADLs including sleeping, lifting light objects, and certain movements of her R UE. Skilled therapy remains indicated to aid pt return to PLOF. Patient goals met ST/5 Goals Not Met cervical AROM, p! severity, LTG Plan Plan Continue initial POC Frequency of Therapy 2x/week Duration of therapy 4 more weeks Time and Billing Re-Eval Time 12 Re-Eval Billing Units 1 PHYSICIAN CERTIFICATION: I certify the specified therapy services for Samia Martinez are required, authorized, and reviewed every 30 days.
== END 2024-06-23 16:05 | disposition home or self-care (01) ==
LOC: PT 16:00
PROVIDERS: Visit Provider Family Medicine
DX: M54.12 Radiculopathy, cervical region (principal); M25.511 Pain in right shoulder; M25.512 Pain in left shoulder
CPT/HCPCS: 97010; 97014; 97035; 97110; 97140; 97163; 97164; G0283

== ENCOUNTER 2024-06-29 15:38 | Inpatient (IN) | payer BC, MEDICARE, SELFPAY ==
[2024-06-29 15:39] VITALS: BP 190/82; PULSE 72; RESP 16; TEMP 36.7; O2SAT 100; BMI 45.3
--- NOTE | 2024-06-29 17:00 | CT_ITS ---
PROCEDURE INFORMATION: Exam: CT Abdomen And Pelvis With Contrast Exam date and time: 06/29/2024 7:06 PM Age: 68 years old Clinical indication: Abdominal pain; Generalized; Additional info: Llq abd pain TECHNIQUE: Imaging protocol: Computed tomography of the abdomen and pelvis with contrast. Radiation optimization: All CT scans at this facility use at least one of these dose optimization techniques: automated exposure control; mA and/or kV adjustment per patient size (includes targeted exams where dose is matched to clinical indication); or iterative reconstruction. Contrast material: ISOVUE; Contrast volume: 75 ml; Contrast route: IV; COMPARISON: CT ABDOMEN PELVIS WO CON 15/08/2023 20:25 FINDINGS: Liver: Hepatic steatosis. Gallbladder and biliary ducts: Gallbladder is absent. Pancreas: Peripancreatic edema most likely represents acute pancreatitis. Trace free fluid in the pelvis, likely related to pancreatitis. Spleen: Normal. No splenomegaly. Adrenal glands: Normal. No mass. Kidneys and ureters: Normal. No hydronephrosis. Stomach and bowel: Severe sigmoid diverticulosis without diverticulitis. Appendix: No evidence of appendicitis. Intraperitoneal space: Unremarkable. No free air. No significant fluid collection. Vasculature: The arteries demonstrate mild atherosclerotic disease. Incidental note of 2 right renal arteries. Lymph nodes: Unremarkable. No enlarged lymph nodes. Urinary bladder: Unremarkable as visualized. Reproductive: Status post hysterectomy. Bones/joints: Unremarkable. No acute fracture. Soft tissues: Tiny fat containing umbilical hernia. IMPRESSION: 1. Peripancreatic edema most likely represents acute pancreatitis. No peripancreatic fluid collection. Patent splenic and portal veins. 2. Hepatic steatosis.
--- NOTE | 2024-06-29 17:02 | HMH.EDGENADL ---
Discharge Plan Disposition Patient Disposition: Admitted Chief Complaint: Abdominal Pain Prescriptions Prescriptions: No Action tramadol 50 mg Tablet 50 mg PO Q6HP PRN (Reason: Mild To Moderate Pain (1-6)) Qty: 30 0RF cefdinir 300 mg capsule 300 mg PO BID Qty: 20 0RF potassium chloride 10 mEq capsule, extended release 10 meq PO DAILY lisinopril 20 mg tablet 20 mg PO DAILY amlodipine 5 mg tablet 5 mg PO DAILY hyoscyamine sulfate [Anaspaz] 0.125 mg tablet,disintegrating 0.125 mg PO QIDP PRN (Reason: Stomach Pain) triamterene-hydrochlorothiazid 37.5-25 mg tablet 1 tab PO DAILY pantoprazole 40 mg Tablet,Delayed Release (Dr/Ec) 40 mg PO DAILY Qty: 30 2RF Referrals Follow up/Referrals: Adelso Mathew MD [Primary Care Provider] - See instructions Clinical Impressions Clinical Impression: Acute pancreatitis Instructions Patient Instructions: DI for Acute Abdominal Pain Print Language Print Language: [place] Discharge ED Provider: Aston Granger General Adult HPI General Chief complaint: Abdominal Pain Stated complaint: Stomach pain,vomiting Time Seen by Provider: 06/29/24 16:55 Mode of Arrival: Ambulatory Source of Information: Patient Limitations: No Limitations Description of Symptoms (Recalled from ER Triage Doc. by RN): pt to the ER with left lower quadrant pain since saturday evening and constipation. pt reports she tried to take dulcolax today but has been vomiting. pt reports a history of pancreatitis last year. History of Present Illness HPI narrative: Patient is a 68-year-old female presenting today with left lower quadrant abdominal pain over the last several days. Denies any blood in her stool denies any history of diverticulosis or diverticulitis she has had colonoscopies in the past which she claims have been unremarkable. Does have a history of pancreatitis but states that the location of pain is low but different no significant epigastric pain from historical standpoint. No changes in urination including frequency urgency hematuria etc. No changes in bowel movements. No nausea vomiting fevers or chills. Related Data Home Medications ?Medication ?Instructions ?Recorded ?Confirmed amlodipine 5 mg tablet 5 mg PO DAILY High Blood Pressure 08/15/23 08/15/23 lisinopril 20 mg tablet 20 mg PO DAILY High Blood Pressure 09/21/23 09/21/23 potassium chloride 10 mEq 10 meq PO DAILY Supplement 08/15/23 08/15/23 capsule,extended release hyoscyamine sulfate 0.125 mg 0.125 mg PO QIDP PRN Stomach Pain 08/16/23 08/15/23 disintegrating tablet (Anaspaz) triamterene 37.5 1 tab PO DAILY High Blood Pressure 08/16/23 08/15/23 mg-hydrochlorothiazide 25 mg tablet Previous Rx's ?Medication ?Instructions ?Recorded cefdinir 300 mg capsule 300 mg PO BID Infection #20 caps 08/07/23 tramadol 50 mg tablet 50 mg PO Q6HP PRN Mild To Moderate 08/07/23 Pain (1-6) #30 tabs pantoprazole 40 mg tablet,delayed 40 mg PO DAILY #30 tabs 08/18/23 release Allergies Allergy/AdvReac Type Severity Reaction Status Date / Time Sulfa (Sulfonamide Allergy Unknown Verified 04/17/22 11:21 Antibiotics) codeine AdvReac Unknown NA-NAUSEA/VOMITING, Verified 04/17/22 11:21 DRIVES [facility] Disclaimer: The information contained in this section may have been updated after the patient was seen, as this information can be updated by other users. 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 BMI 45.0-49.9, adult Endometriosis Hypertension Diverticulosis Viral syndrome Surgical History History of appendectomy History of hysterectomy History of cholecystectomy Family History Other CHF (congestive heart failure) Diabetes Heart attack Lung cancer Parkinsons Prostate cancer Stomach cancer Social History (Updated 08/15/23 @ 17:56 by Raegan Chiang RN) Smoking Status: Never smoker alcohol intake: never current occupational status: employed and other Travel in the last 8 weeks: None ROS Obtained: Yes All systems reviewed & no additional complaints except as documented Physical Exam General General appearance: alert Respiratory Respiratory exam: Present normal lung sounds bilaterally Cardiovascular Cardiovascular exam: Present regular rate Abdominal Exam Abdominal exam: Present soft and tenderness (Left lower quadrant tenderness no rebound or guarding) Neurological Exam Neurological exam: Present alert and oriented X3 Medical Decision Making Rizwan Inquiry Pt receiving controlled substance: No Vital Signs: 06/29/24 15:39 Temperature 98.0 F Temperature Source Oral Pulse Rate [Left Radial] 72 Respiratory Rate 16 Blood Pressure [Right Arm] 190/82 H Blood Pressure Mean [Right Arm] 118 Blood Pressure Source [Right Arm] Automatic Cuff Blood Pressure Position [Right Arm] Sitting 02 Sat by Pulse Oximetry 100 Lab Data Lab results reviewed: Yes I reviewed the patient's lab results. Lab Results 06/29/24 16:55: WBC 19.6 H, RBC 4.58, Hgb 13.9, Hct 41.9, MCV 91.4, MCH 30.4, MCHC 33.3, RDW 13.7, Plt Count 357, MPV 8.5, Neut % (Auto) 87.3 H, Lymph % (Auto) 7.3 L, Cache % (Auto) 5.1, Eos % (Auto) 0.2, Baso % (Auto) 0.2, Neut # (Auto) 17.1 H, Lymph # (Auto) 1.4, Cache # (Auto) 1.0, Eos # (Auto) 0.0, Baso # (Auto) 0.0, Total Counted 100, Neutrophils % (Manual) 88 H, Lymphocytes % (Manual) 10, Monocytes % (Manual) 2, Platelet Estimate Normal, RBC Morphology Normal, Sodium 125 L, Potassium 4.0, Chloride 93 L, Carbon Dioxide 24, Anion Gap 12.0, BUN 9, Creatinine 0.60, Estimated Creat Clear 40, Estimated GFR 99, Est GFR ( Amer) 120, Glucose 111 H, Lactate 1.0, Calcium 9.1, Total Bilirubin 1.1, AST 34, ALT 28, Alkaline Phosphatase 98, Total Protein 7.8, Albumin 4.5, Globulin 3.3 H, Albumin/Globulin Ratio 1.4, Lipase 1473 H 06/29/24 16:55 06/29/24 16:55 Orders (Tests/Meds): ED MEDICATIONS Discontinued Medications Generic Name Dose Route Start Last Admin Trade Name Freq PRN Reason Stop Dose Admin Lactated Ringer's 1,000 mls @ 999 mls/hr 06/29/24 17:00 06/29/24 17:16 Lactated Ringer's 1000 Ml Bag IV 06/29/24 18:00 999 mls/hr .Q1H1M OG Administration Iopamidol 75 ml 06/29/24 19:05 06/29/24 19:06 Iopamidol-370 (76%);100ml Bottle IV 06/29/24 19:06 75 ml ONCE ONE Administration Morphine Sulfate 4 mg 06/29/24 17:00 06/29/24 17:16 Morphine 4mg/Ml Syringe IV 06/29/24 17:01 4 mg ONCE ONE Administration Ondansetron HCl 4 mg 06/29/24 17:00 06/29/24 17:16 Ondansetron 4mg/2ml Vial IV 06/29/24 17:01 4 mg ONCE ONE Administration ORDERS Category Date Time Status CT abdomen pelvis w con Stat Cat Scan 06/29/24 17:00 Taken CBC w/Auto Diff [Complete Blood Count Auto Diff] Stat Lab 06/29/24 16:55 Completed CMP [Comprehensive Metabolic Panel] Stat Lab 06/29/24 16:55 Completed Lactic Acid Stat Lab 06/29/24 16:55 Completed Lipase Stat Lab 06/29/24 16:55 Completed UA [Urinalysis and Microscopic] Stat Lab 06/29/24 17:00 Ordered Medical Decision Narrative: 68-year-old with left lower quadrant abdominal pain differential includes diverticulitis, colitis, kidney stone, bowel obstruction malignancy etc. Will get a CT scan with contrast for further evaluation and management IV fluids pain medicine nausea medicine have been administered will reassess. Reassessment 7 PM patient she will abdominal exam she also has some tenderness. CT scan performed to person interpreted shows peripancreatic inflammation but no other acute abnormalities specifically no evidence of diverticulitis or perforation or other pathology. Lipase is significantly elevated at 1473. She also has significant hyponatremia with a sodium of 125 I recommend that she be admitted for correction of her sodium IV fluids bowel rest pain control. I did follow-up on her past she was last diagnosis of pancreatitis was in the hospital for a few days followed up with Dr. Beard at [place] had extensive evaluation and was told she was in the 2% of patients that did not have an exact etiology it was found. I am comfortable with keeping her at this hospital discussed the case with Dr. Jacobs who is on-call for Dr. Mathew patient will be admitted for further evaluation and management Critical Care Critical Care Time Critical Care Time: No
[2024-06-29] MEDS: LACTATED RINGERS 1000ML 1,000 ML 999 ML IV (17:16)
[2024-06-29] MEDS: MORPHINE 4MG/ML SYRINGE 4 MG IV (17:16)
[2024-06-29] MEDS: ONDANSETRON 4MG/2ML VIAL 4 MG IV (17:16)
[2024-06-29 17:27] LABS: Basophils % 0.2 % (0.1-2.0); Eosinophils % 0.2 % (0.1-12.0); Hematocrit 41.9 % (37.0-47.0); Hemoglobin 13.9 g/dL (12.2-16.2); Lymphocytes # 1.4 K/mm3 (0.7-4.5); Lymphocytes % 7.3 % (10-50); Mean Corpuscular HGB Conc 33.3 g/dL (31.8-35.4); Mean Corpuscular Hemoglobin 30.4 pg (27.0-31.2); Mean Corpuscular Volume 91.4 fl (81-99); Mean Platelet Volume 8.5 fl (7.4-10.4); Monocytes % 5.1 % (1.7-9.3); Neutrophils # 17.1 K/mm3 (1.8-7.8); Neutrophils % 87.3 % (37.0-80.0); Platelet Count 357 K/mm3 (142-424); Red Blood Count 4.58 M/mm3 (4.20-5.40); Red Cell Distribution Width 13.7 % (11.5-17.5); White Blood Count 19.6 K/mm3 (4.8-10.8)
[2024-06-29 17:29] LABS: MANUAL DIFFERENTIAL MANUAL DIFFERENTIAL (MANUAL DIFF)
[2024-06-29 17:43] LABS: Lymphocytes % 10 % (10-50); Monocytes % 2 % (2-9); Neutrophils % 88 % (42-76); Total Cells Counted 100
[2024-06-29 17:44] LABS: Platelet Estimate Normal; RBC Morphology Normal
[2024-06-29 18:36] LABS: Albumin Level 4.5 g/dl (3.5-5.0); Chloride 93 mmol/L (98-107); Sodium 125 mmol/L (136-145)
[2024-06-29 18:39] LABS: Alanine Aminotransferase 28 U/L (12-78); Albumin/Globulin Ratio 1.4 (1.1-1.8); Alkaline Phosphatase 98 U/L (38-126); Aspartate Amino Transferase 34 U/L (14-36); Bilirubin,Total 1.1 mg/dl (0.2-1.3); Blood Urea Nitrogen 9 mg/dl (7-17); Calcium 9.1 mg/dl (8.4-10.2); Carbon Dioxide 24 mmol/L (22.0-30.0); Creatinine Clearance Estimated 40 mL/min (50-200); Estimated Glomerular Filt Rate 99 ml/min (>60); GFR (African American) 120 ML/MIN (>60); Globulin 3.3 g/dL (1.3-3.2); Glucose 111 mg/dl (74-100); Total Protein,Serum 7.8 g/dl (6.3-8.2)
[2024-06-29 18:50] LABS: Lipase 1473 U/L (23-300)
[2024-06-29] MEDS: IOPAMIDOL-370 (76%);100ML BOTTLE 75 ML IV (19:06)
--- NOTE | 2024-06-29 19:10 | PC.NURSE ---
pt back from radiology
[2024-06-29 19:26] LABS: Microscopic, Urine URINE MICROSCOPIC (MICROSCOPIC)
[2024-06-29 19:29] LABS: Appearance,Urine CLEAR (Clear); Bilirubin,Urine Negative (Negative); Blood, Urine TRACE-I (Negative); Color,Urine YELLOW (Yellow); Glucose,Urine (UA) Negative (Negative); Ketones,Urine 2+ (Negative); Leukocyte Esterase,Urine Negative (Negative); Nitrate,Urine Negative (Negative); Protein,Urine Negative (Negative); Specific Gravity, Urine 1.025 (1.005-1.030); Urobilinogen,Urine 0.2 EU/dl (0.2)
[2024-06-29 19:58] LABS: Bacteria,Urine Trace /lpf; Mucus,Urine Trace /lpf; WBC,Urine Occasional #/hpf (0-3)
[2024-06-29 19:59] VITALS: BP 183/84; PULSE 89; RESP 17; TEMP 36.6; O2SAT 98
--- NOTE | 2024-06-29 19:59 | PC.NURSE ---
Report called to Suresh MCKOY #[phone]
[2024-06-29 20:11] VITALS: BP 165/77; PULSE 78; RESP 16; TEMP 36.4; O2SAT 100; BMI 45.7
--- NOTE | 2024-06-29 20:12 | PC.NURSE ---
Patient arrived to floor via wheelchair from ED at 20:11.
[2024-06-29] MEDS: MORPHINE 2MG/ML SYRINGE 2 MG IV (21:26)
[2024-06-29] MEDS: 0.9 % SODIUM CHLORIDE 1000ML 1,000 ML 100 ML IV (21:26)
[2024-06-29] MEDS: ACETAMINOPHEN 325MG TAB 650 MG PO (23:37)
[2024-06-30] MEDS: MORPHINE 2MG/ML SYRINGE 2 MG IV (01:48)
[2024-06-30] MEDS: HYDROMORPHONE 2MG/ML SYRINGE 1 MG IV ×4 (03:56→20:10)
[2024-06-30 04:00] VITALS: BP 159/72; PULSE 81; RESP 20; TEMP 36.8; O2SAT 95; BMI 47.0
--- NOTE | 2024-06-30 05:37 | PC.NURSE ---
Patient is A&OX4 and has tolerated room air. She has complained of abdominal pain in the lower left quadrant and was treated per JAN. Pt states relief of pain after treatment. She has not complained of any nausea this shift. Normal saline has been going @100. Lung sounds clear throughout and bowel sounds active in all quadrants. Pt is currently asleep with call light within reach.
[2024-06-30] MEDS: ACETAMINOPHEN 325MG TAB 650 MG PO (06:50)
[2024-06-30] MEDS: 0.9 % SODIUM CHLORIDE 1000ML 1,000 ML 100 ML IV ×2 (06:50→15:53)
[2024-06-30 06:58] LABS: Basophils % 0.2 % (0.1-2.0); Eosinophils # 0.2 K/mm3 (0.0-0.4); Eosinophils % 1.1 % (0.1-12.0); Hematocrit 38.2 % (37.0-47.0); Hemoglobin 12.8 g/dL (12.2-16.2); Lymphocytes % 4.9 % (10-50); Mean Corpuscular HGB Conc 33.5 g/dL (31.8-35.4); Mean Corpuscular Hemoglobin 30.6 pg (27.0-31.2); Mean Corpuscular Volume 91.4 fl (81-99); Mean Platelet Volume 8.1 fl (7.4-10.4); Monocytes # 1.1 K/mm3 (0.1-1.0); Monocytes % 5.3 % (1.7-9.3); Neutrophils # 17.9 K/mm3 (1.8-7.8); Neutrophils % 88.4 % (37.0-80.0); Platelet Count 339 K/mm3 (142-424); Red Blood Count 4.17 M/mm3 (4.20-5.40); Red Cell Distribution Width 13.9 % (11.5-17.5); White Blood Count 20.3 K/mm3 (4.8-10.8)
[2024-06-30 07:03] LABS: MANUAL DIFFERENTIAL MANUAL DIFFERENTIAL (MANUAL DIFF)
[2024-06-30 07:07] LABS: Chloride 96 mmol/L (98-107)
[2024-06-30 07:08] LABS: Albumin Level 3.9 g/dl (3.5-5.0); Potassium 4.1 mmoL/L (3.5-5.1); Sodium 126 mmol/L (136-145)
[2024-06-30 07:10] LABS: Alanine Aminotransferase 118 U/L (12-78); Anion Gap 9.1 mEq/L (5-15); Aspartate Amino Transferase 125 U/L (14-36); Blood Urea Nitrogen 7 mg/dl (7-17); Carbon Dioxide 25 mmol/L (22.0-30.0); Creatinine Clearance Estimated 40 mL/min (50-200); Estimated Glomerular Filt Rate 83 ml/min (>60); GFR (African American) 100 ML/MIN (>60)
[2024-06-30 07:11] LABS: Albumin/Globulin Ratio 1.3 (1.1-1.8); Alkaline Phosphatase 141 U/L (38-126); Bilirubin,Total 1.3 mg/dl (0.2-1.3); Calcium 8.3 mg/dl (8.4-10.2); Globulin 2.9 g/dL (1.3-3.2); Glucose 90 mg/dl (74-100); Total Protein,Serum 6.8 g/dl (6.3-8.2)
[2024-06-30] MEDS: ONDANSETRON 4MG/2ML VIAL 4 MG IV (07:20)
--- NOTE | 2024-06-30 07:37 | HMH.PHAINT1 ---
Pharmacy Intervention Comments: MEDICATION RECONCILIATION COMPLETED ON PATIENT USING EXTERNAL FILL HISTORY FROM PHARMACY AND MOE REPORT. -NICHOLAS LOVE, RAVID
[2024-06-30 08:00] VITALS: BP 180/89; PULSE 87; RESP 17; TEMP 36.8; O2SAT 98
--- NOTE | 2024-06-30 08:26 | P.HP_ITS ---
History of Present Illness *Admission Date: 06/29/24 *Reason for visit:: Abdominal pain *History of present illness: Mrs. Zaman is a 68 year old patient of [facility] who typically sees Dr. Mathew for her primary medical care. She presented to [facility] ER yesterday complaining of a 2 day history of left sided abdominal pain. She though her pain was related to constipation as she had been having fewer bowel movements recently but on the day of admission she took a dulcolax tablet and subsequently vomited and had much worse abdominal pain. The pain was similar to her previous episode of pancreatitis, which was 11 months ago. She states she was treated at [facility] then, had 2 separate admissions and was eventually seen by Dr. Beard in [place]. She states that he was unable to find a cause for her pancreatitis, as her gallbladder has been removed, she does not drink alcohol and her triglycerides are normal. [facility] Disclaimer: The information contained in this section may have been updated after the patient was seen, as this information can be updated by other users. Medical History (Updated 06/30/24 @ 08:33 by Les Avilez MD) GERD (gastroesophageal reflux disease) Pancreatitis BMI 45.0-49.9, adult Endometriosis Hypertension Diverticulosis Surgical History History of appendectomy History of hysterectomy History of cholecystectomy Family History Stomach cancer Prostate cancer Diabetes CHF (congestive heart failure) Heart attack Lung cancer Parkinsons Social History Smoking Status: Never smoker alcohol intake: never current occupational status: employed and other Travel in the last 8 weeks: None Review of Systems Constitutional Constitutional: Denies chills and Denies fever(s) ENT Ears, Nose, Mouth, and Throat: Denies dizziness *Cardiovascular Cardiovascular: Denies chest pain and Denies dyspnea *Respiratory Respiratory: Denies dyspnea *Gastrointestinal Gastrointestinal: Reports as per HPI *Genitourinary Genitourinary: Denies dysuria *Musculoskeletal Musculoskeletal: Denies arthralgias *Neurologic Neurologic: Denies dizziness Meds Home Medications and Allergies Home Medications ?Medication ?Instructions ?Recorded ?Confirmed ?Type lisinopril 20 mg tablet 20 mg PO DAILY 08/15/23 06/29/24 History pantoprazole 40 mg tablet,delayed 40 mg PO DAILY #30 tabs 08/18/23 06/29/24 Rx release New Prescriptions to Start Prescriptions: Allergies Allergy/AdvReac Type Severity Reaction Status Date / Time Sulfa (Sulfonamide Allergy Unknown Verified 04/17/22 11:21 Antibiotics) codeine AdvReac Unknown NA-NAUSEA/VOMITING, Verified 04/17/22 11:21 DRIVES CRAZY Exam Data for Last 24 hours Vital signs and Labs for Last 24 Hours: Temp Pulse Resp BP Pulse Ox O2 Del Method 98.3 F 81 20 159/72 H 95 Room Air 06/30/24 04:00 06/30/24 04:00 06/30/24 04:00 06/30/24 04:00 06/30/24 04:00 06/30/24 08:22 Laboratory Results - last 24 hr 06/29/24 16:55: WBC 19.6 H, RBC 4.58, Hgb 13.9, Hct 41.9, MCV 91.4, MCH 30.4, MCHC 33.3, RDW 13.7, Plt Count 357, MPV 8.5, Neut % (Auto) 87.3 H, Lymph % (Auto) 7.3 L, [place] % (Auto) 5.1, Eos % (Auto) 0.2, Baso % (Auto) 0.2, Neut # (Auto) 17.1 H, Lymph # (Auto) 1.4, [place] # (Auto) 1.0, Eos # (Auto) 0.0, Baso # (Auto) 0.0, Total Counted 100, Neutrophils % (Manual) 88 H, Lymphocytes % (Manual) 10, Monocytes % (Manual) 2, Platelet Estimate Normal, RBC Morphology Normal, Sodium 125 L, Potassium 4.0, Chloride 93 L, Carbon Dioxide 24, Anion Gap 12.0, BUN 9, Creatinine 0.60, Estimated Creat Clear 40, Estimated GFR 99, Est GFR ( Amer) 120, Glucose 111 H, Lactate 1.0, Calcium 9.1, Total Bilirubin 1.1, AST 34, ALT 28, Alkaline Phosphatase 98, Total Protein 7.8, Albumin 4.5, Globulin 3.3 H, Albumin/Globulin Ratio 1.4, Lipase 1473 H 06/29/24 19:05: Urine Color Yellow, Urine Appearance Clear, Urine pH 6.0, Ur Specific [place] 1.025, Urine Protein Negative, Urine Glucose (UA) Negative, Urine Ketones 2+, Urine Blood Trace-i, Urine Nitrate Negative, Urine Bilirubin Negative, Urine Urobilinogen 0.2, Ur Leukocyte Esterase Negative, Urine RBC 3-5, Urine WBC Occasional, Ur Squamous Epith Cells 5-10, Urine Bacteria Trace, Urine Mucus Trace 06/30/24 06:44: WBC 20.3 H*, RBC 4.17 L, Hgb 12.8, Hct 38.2, MCV 91.4, MCH 30.6, MCHC 33.5, RDW 13.9, Plt Count 339, MPV 8.1, Neut % (Auto) 88.4 H, Lymph % (Auto) 4.9 L, [place] % (Auto) 5.3, Eos % (Auto) 1.1, Baso % (Auto) 0.2, Neut # (Auto) 17.9 H, Lymph # (Auto) 1.0, [place] # (Auto) 1.1 H, Eos # (Auto) 0.2, Baso # (Auto) 0.0, Sodium 126 L, Potassium 4.1, Chloride 96 L, Carbon Dioxide 25, Anion Gap 9.1, BUN 7, Creatinine 0.70, Estimated Creat Clear 40, Estimated GFR 83, Est GFR ( Amer) 100, Glucose 90, Calcium 8.3 L, Total Bilirubin 1.3, AST 125 H D, ALT 118 H D, Alkaline Phosphatase 141 H, Total Protein 6.8, Albumin 3.9 D, Globulin 2.9, Albumin/Globulin Ratio 1.3 I & O for Last 24 hours: Intake & Output 06/27/24 06/28/24 06/29/24 06/30/24 23:59 23:59 23:59 23:59 Intake Total 950 / 950 Output Total 0 / 0 0 / 0 Balance 0 / 50 950 / 950 Weight 242 lb 249 lb 5 oz Constitutional Constitutional: no acute distress *Routine HEENT Exam Head: Present normocephalic Eye: Present EOMI and PERRL ENT: Present mucous membranes moist *Routine Neck Exam Neck: Present supple; Absent lymphadenopathy *Routine Respiratory Exam Respiratory: Present CTA bilaterally *Routine Cardiovascular Exam Cardiovascular: Present RRR *Routine Abdominal Exam Abdominal: Present soft, normoactive bowel sounds, tenderness (left upper quadrant) and obese *Routine Rectal Exam Rectal:: deferred *Routine Genitalia Exam Genitalia:: deferred *Routine Extremities Exam Extremities: Absent cyanosis, clubbing or edema *Routine Skin Exam Skin: Present warm; Absent rash *Routine Neurological Exam Neurological: Present alert and oriented X3 Assessment and Plan *Assessment and plan (1) Acute pancreatitis: Status: Acute Category: Medical Code(s): K85.90 - Acute pancreatitis without necrosis or infection, unspecified (2) Hypertension: Status: Acute Category: Medical Code(s): I10 - Essential (primary) hypertension (3) BMI 45.0-49.9, adult: Status: Acute Category: Medical Code(s): Z68.42 - Body mass index [BMI] 45.0-49.9, adult (4) Bandemia without diagnosis of specific infection: Status: Acute Category: Medical Code(s): D72.825 - Bandemia Plan Patient admitted for further evaluation and management. Unclear etiology of elevated WBC count, will monitor labs.
--- NOTE | 2024-06-30 08:49 | PC.NURSE ---
. aware of pt's bp of 180/89.
[2024-06-30 09:02] LABS: Lymphocytes % 5 % (10-50); Monocytes % 7 % (2-9); Neutrophils % 87 % (42-76); Total Cells Counted 100
[2024-06-30 09:03] LABS: Platelet Estimate Normal; RBC Morphology Normal
[2024-06-30] MEDS: AMLODIPINE 5MG TABLET 5 MG PO (09:25)
[2024-06-30] MEDS: PANTOPRAZOLE 40MG TABLET 40 MG PO ×2 (09:26→20:09)
--- OUTSIDE RECORDS SUMMARY | 2024-06-30 12:15 | XMS_ITS | Continuity of Care Document ---
Author Organization [facility] Phone Care Team Providers Care Applier Name Role Phone NO, DEFINED P Primary Care Unavailable CASEKENYATTA Admitting CASE, KENYATTA Calderon Primary Attending ALLERGIES AND ADVERSE REACTIONS ALLERGIES AND ADVERSE REACTIONS Code System Allergy Substance Adverse Reaction Date Reaction (Severity) Comment Status Reported By [place] [id number] SNOMED CT SULFA ANTIBIOTICS Adverse reaction to substance unknown reaction active [id number] on October 16, 2023 6:33:48 PM [facility] 2670 RXNorm CODEINE Adverse reaction to substance (Moderate) makes pt nervous active [id number] on October 16, 2023 6:33:48 PM [facility] TREATMENT PLAN DISCHARGE MEDICATIONS Status RXNORM Medication Dose Route Frequency Dates Comments U pdated By Patient discharge medication information is not available. PATIENT OPEN ORDERS Code System Description Frequency Occurrences Priority [place] [id number] [facility] Pathology report addendum in Specimen Narrative ONE TIME 0 Routine October 21, 2023 5:10:00 PM [facility] CASE KENYATTA Calderon [id number] on October 21, 2023 5:20:00 PM [facility] 81874-6 [facility] Pathology report addendum in Specimen Narrative ONE TIME 0 Routine October 21, 2023 5:32:00 PM [facility] CASE KENYATTA Calderon [id number] on October 21, 2023 5:32:00 PM [facility] SCHEDULED PROCEDURES Code System Description Status Scheduled Date Upd ated By Patient scheduled procedure information is not available. MEDICATIONS HOME MEDICATIONS Status RXNORM Medication Dose Route Frequency Dates Comments R eported By Updated By Active [id number] amLODIPine (NORVASC) 5.0 MG PO DAILY Last Dose: October 20, 2023 4:13:00 PM [place] PATIENT [id number] on October 21, 2023 4:13:05 PM [facility] Active 738555 pantoprazole (PROTONIX) 40.0 MG PO DAILY Last Dose: October 20, 2023 4:12:00 PM [facility] PATIENT [id number] on October 21, 2023 4:12:57 PM [facility] Active 666661 potassium chloride (K-DUR) 10.0 MEQ PO DAILY Last Dose: October 20, 2023 4:12:00 PM [facility] PATIENT [id number] on October 21, 2023 4:12:50 PM [facility] Active 119761 lisinopril (ZESTRIL) 20.0 MG PO DAILY Last Dose: October 20, 2023 4:12:00 PM [facility] PATIENT [id number] on October 21, 2023 4:12:41 PM [facility] Active 268046 Triamterene-HC TZ Oral Capsule 37.5-25 MG 1.0 TAB PO DAILY Last Dose: October 20, 2023 4:12:00 PM [facility] PATIENT [id number] on October 21, 2023 4:12:22 PM [facility] DISCHARGE MEDICATIONS Status RXNORM Medication Dose Route Frequency Dates Comments Physic dimitry Updated By No Discharge Medication Info rmation Available INPATIENT MEDICATIONS Status RXNORM Medication Dose Route Frequency Rate Quantity Dates Comments Physician Updated By Randy inued [id number] LACTATED RINGERS SOLN 1000. 0 ML INTRAV ENOUS ONE TIME ADMINISTRA TION (UNSCHEDUL ED) 25.0 ML/HR Start: [facility] 2022 2:52:0 0 PM [place] End: [facility] 2022 4:10:5 3 PM [facility] DEPMalcolm CASTREJON [id number] on October 21, 2023 4:10:00 PM [facility] Active 1371527 sodium chloride 0.9% SOLN 1000. 0 ML INTRAV ENOUS ONE TIME ADMINISTRA TION (UNSCHEDUL ED) 25.0 ML/HR Start: [facility] 2022 2:52:0 0 PM [place] End: [facility] 2022 11:13: 00 PM [facility] DEPMalcolm CASTREJON [id number] on October 16, 2023 2:53:00 PM [facility] Randy inued [id number] LACTATED RINGERS SOLN 1000. 0 ML IV CONTIN UOUS ONE TIME ONLY (SCHEDULED DOSE) Start: [facility] 2022 11:12: 00 PM [place] End: [facility] 2022 11:12: 00 PM [facility] CASE KENYATTA W INTERFAC ED on October 21, 2023 5:00:00 AM [facility] SOCIAL HISTORY SOCIAL HISTORY SNOMED-CT Social History Element Description Effective Dates Offered Cessation Comment UpdatedBy [id number] Current Tobacco smoking status Never Smoked [id number] on October 16, 2023 6:33:05 PM [place] SOCIAL HISTORY - Gender Sex: Female SOCIAL HISTORY - Sexual Behavior Sexual Orientation Gender Identity SNOMED-CT Description SNO MED -CT Description Activity Level No of Partners Partner Type UpdatedBy Information is not available VITAL SIGNS PATIENT VITAL SIGNS This section displays the mo st recent value for each vital sign as of October 22, 2023 5:15:36 AM [facility] Loinc Code Vital Sign Activity Date Result Updated By 8302-2 Body height October 16 6:37:43 PM [place] 154.94 cm (61.0 in) [id number] on October 16, 2023 6:37:43 PM [facility] 32886-4 Body mass index (BMI) [Ratio] October 16, 2023 6:37:43 PM [place] 42.509 kg/m2 [id number] on October 16, 2023 6:37:43 PM [facility] 3140-1 Body Surface Area Derived From Formula October 16, 2023 6:37:43 PM [place] 1.9861 m2 [id number] on October 16, 2023 6:37:43 PM [facility] 90633-4 Body weight Measured October 16, 2023 6:37:43 PM [place] 102.058 kg (225.0 lb) [id number] on October 16, 2023 6:37:43 PM [facility] PEDIATRIC GROWTH CHART - VITAL SIGNS This section displays Head C ircumference Percentile, Weight for Length Percentile and BMI Percentile Loinc Code Pediatric Measure Age (Months) Result Updat ed By No Pediatric Growth Chart Pe rcentile Information Available. PROCEDURES PATIENT PROCEDURES CODE SYSTEM DESCRIPTION STATUS PERFORMED DATE UPD ATED BY [id number] SNOMED-CT Esophagogastroduodenoscopy completed October 21, 2023 5:00:00 AM [facility] [id number] on October 21, 2023 5:09:53 PM [facility] [id number] SNOMED-CT Endoscopic ultrasonography completed October 21, 2023 5:00:00 AM [facility] [id number] on October 21, 2023 5:10:22 PM [facility] PROCEDURE NOTE Procedure Note information i s not available. HEALTH CONCERNS Problems Concern Status Health Concern problem infor mation not available. Smoking Status Status Years Used Consumed packs p er day Health Concern smoking histo ry information not available. Family History Concern Status Health Concern family histor y information not available. ENCOUNTERS ENCOUNTER INFORMATION Reason for Visit EGDEUS Admission October 21, 2023 3:13:00 PM UTC [place] [id number] [facility] [address] Discharge October 21, 2023 11:13:00 PM UT C DISCHARGED TO HOME OR SELF CARE ENCOUNTER DIAGNOSES Notes information is not tosha ilable. Code System Diagnosis Onset Date Diagnosis information is not available. ABSTRACT DIAGNOSES Code System Diagnosis Updated By Abstract Diagnosis informati on is not available. CARE TEAM Care Applier Role DEFINED NO Primary Care KENYATTA CASE Admitting KENYATTA CASE Primary Attending HISTORY AND PHYSICAL NOTE HISTORY AND PHYSICAL NOTE Note Title Nurse Intake Note Date Of Service October 16, 2023 6: 34:20 PM UTC Created By [id number] on October 16, 2023 6:34:20 PM UTC Signed By [id number] on October 16, 2023 6:35:53 PM UTC Past Medical History Gastroesophageal reflux disease Essential hypertension Past Surgical History Appendectomy Hysterectomy Cholecystectomy Social History tobacco use Never Smoked, 0 yrs alcohol use No Known Use drug use No Known Use marital status Unknown Procedures and Surgeries (Current Encounter) None Electronically signed by Francisca Dejesus RN on 7698 CARE TEAM CARE custodial supervisor Role on Team Status Start Date End Date Update d By NO DEFINED PRIMARY C PCP normal October 14, 2023 9:39:47 PM UT October 21, 2023 11:13:00 PM [facility] [id number] on October 14, 2023 9:39:47 PM [facility] CASE KENYATTA Kvng ABRAMS Attending normal October 14, 2023 9:39:47 PM UT October 21, 2023 11:13:00 PM [facility] [id number] on October 14, 2023 9:39:47 PM [facility] CASE KENYATTA W ALIZA Admitting normal October 14, 2023 9:39:47 PM UT October 21, 2023 11:13:00 PM [facility] [id number] on October 14, 2023 9:39:47 PM [facility]
--- OUTSIDE RECORDS SUMMARY | 2024-06-30 12:15 | XMS_ITS | Continuity of Care Document ---
Author Organization [facility] Phone Care Team Providers Care Frame Gate Mortiser Operator Name Role Phone NO, DEFINED P Primary Care Unavailable CASE, KENYATTA W Admitting CASE, KENYATTA W Surgeon CASE, KENYATTA W Primary Attending ALLERGIES AND ADVERSE REACTIONS ALLERGIES AND ADVERSE REACTIONS Code System Allergy Substance Adverse Reaction Date Reaction (Severity) Comment Status Reported By [place] [id number] SNOMED CT SULFA ANTIBIOTICS Adverse reaction to substance unknown reaction active [id number] on October 16, 2023 6:33:48 PM [place] 2670 RXNorm CODEINE Adverse reaction to substance (Moderate) makes pt nervous active [id number] on October 16, 2023 6:33:48 PM UT RESULTS Patient: KING ELDA Date of : [birth year] 6 LABORATORY RESULTS Information is not available LABORATORY NARRATIVE RESULTS Information is not available RADIOLOGY RESULTS Information is not available PATHOLOGY NARRATIVE RESULTS ORDER 200: PATHOLOGY SPECIME N (LOINC: 36108-8) ORDER DATE: October 21, 2023 5:32:00 PM UT Specimen Source: PATH PERFORMING LAB: [address] [id number] Final Result Date: October 23, 2023 1:04:00 PM UT TEST: PATHOLOGY SPECIMEN MICROBIOLOGY RESULTS No Micro Labs/Results Exist for Patient BLOOD ADMIN RESULTS Information is not available MEDICATIONS HOME MEDICATIONS Status RXNORM Medication Dose Route Frequency Dates Comments R eported By Updated By Active [id number] amLODIPine (NORVASC) 5.0 MG PO DAILY Last Dose: October 20, 2023 4:13:00 PM UTC PATIENT [id number] on October 21, 2023 4:13:05 PM UTC Active 705197 pantoprazole (PROTONIX) 40.0 MG PO DAILY Last Dose: October 20, 2023 4:12:00 PM [place] PATIENT [id number] on October 21, 2023 4:12:57 PM [facility] Active 423128 potassium chloride (K-DUR) 10.0 MEQ PO DAILY Last Dose: October 20, 2023 4:12:00 PM [facility] PATIENT [id number] on October 21, 2023 4:12:50 PM UT Active 841322 lisinopril (ZESTRIL) 20.0 MG PO DAILY Last Dose: October 20, 2023 4:12:00 PM [facility] PATIENT [id number] on October 21, 2023 4:12:41 PM [facility] Active 376502 Triamterene-HC TZ Oral Capsule 37.5-25 MG 1.0 TAB PO DAILY Last Dose: October 20, 2023 4:12:00 PM [facility] PATIENT [id number] on October 21, 2023 4:12:22 PM [facility] DISCHARGE MEDICATIONS Status RXNORM Medication Dose Route Frequency Dates Comments Physic dimitry Updated By No Discharge Medication Info rmation Available INPATIENT MEDICATIONS Status RXNORM Medication Dose Route Frequency Rate Quantity Dates Comments Physician Updated By Discont inued [id number] LACTATED RINGERS SOLN 1000. 0 ML INTRAV ENOUS ONE TIME ADMINISTRA TION (UNSCHEDUL ED) 25.0 ML/HR Start: [facility] 2022 2:52:0 0 PM [place] End: [facility] 2022 4:10:5 3 PM [facility] LELO CASTREJON [id number] on October 21, 2023 4:10:00 PM [facility] Discont inued [id number] sodium chloride 0.9% SOLN 1000. 0 ML INTRAV ENOUS ONE TIME ADMINISTRA TION (UNSCHEDUL ED) 25.0 ML/HR Start: [facility] 2022 2:52:0 0 PM [place] End: [facility] 2022 11:13: 00 PM [facility] LELO CASTREJON [id number] on October 22, 2023 5:25:00 AM UT Discont inued [id number] LACTATED RINGERS SOLN 1000. 0 ML IV CONTIN UOUS ONE TIME ONLY (SCHEDULED DOSE) Start: [facility] 2022 11:12: 00 PM [place] End: [facility] 2022 11:12: 00 PM [facility] CASE KENYATTA W INTERFAC ED on October 21, 2023 5:00:00 AM [facility] SOCIAL HISTORY SOCIAL HISTORY SNOMED-CT Social History Element Description Effective Dates Offered Cessation Comment UpdatedBy [id number] Current Tobacco smoking status Never Smoked [id number] on October 16, 2023 6:33:05 PM [place] SOCIAL HISTORY - Gender Sex: Female SOCIAL HISTORY - Sexual Behavior Sexual Orientation Gender Identity SNOMED-CT Description SNO MED -CT Description Activity Level No of Partners Partner Type UpdatedBy Information is not available VITAL SIGNS PATIENT VITAL SIGNS This section displays the mo st recent value for each vital sign as of October 28, 2023 11:03:28 AM [facility] Loinc Code Vital Sign Activity Date Result Updated By 8302-2 Body height October 16 6:37:43 PM UT 154.94 cm (61.0 in) [id number] on October 16, 2023 6:37:43 PM [facility] 19909-1 Body mass index (BMI) [Ratio] October 16, 2023 6:37:43 PM [place] 42.509 kg/m2 [id number] on October 16, 2023 6:37:43 PM [facility] 3140-1 Body Surface Area Derived From Formula October 16, 2023 6:37:43 PM UT 1.9861 m2 [id number] on October 16, 2023 6:37:43 PM [facility] 40348-2 Body weight Measured October 16, 2023 6:37:43 PM UT 102.058 kg (225.0 lb) [id number] on October 16, 2023 6:37:43 PM [facility] PEDIATRIC GROWTH CHART - VITAL SIGNS This section displays Head C ircumference Percentile, Weight for Length Percentile and BMI Percentile Loinc Code Pediatric Measure Age (Months) Result Updat ed By No Pediatric Growth Chart Pe rcentile Information Available. PROCEDURES PATIENT PROCEDURES CODE SYSTEM DESCRIPTION STATUS PERFORMED DATE UPD ATED BY [id number] SNOMED-CT Esophagogastroduodenoscopy completed October 21, 2023 5:00:00 AM [facility] [id number] on October 21, 2023 5:09:53 PM [facility] [id number] SNOMED-CT Endoscopic ultrasonography completed October 21, 2023 5:00:00 AM [facility] [id number] on October 21, 2023 5:10:22 PM [facility] PROCEDURE NOTE Procedure Note information i s [...] EGDEUS Admission October 21, 2023 3:13:00 PM [place] [id number] [facility] [address] Discharge October 21, 2023 11:13:00 PM [place] DISCHARGED TO HOME OR SELF CARE ENCOUNTER DIAGNOSES Notes information is not tosha ilable. Code System Diagnosis Onset Date Diagnosis information is not available. ABSTRACT DIAGNOSES Code System Diagnosis Updated By R10.9 ICD10 UNSPECIFIED ABDOMINAL PAIN G [id number] on October 28, 2023 11:02:55 AM [facility] K85.90 ICD10 ACUTE PANCREATIT IS WITHOUT NECROSIS OR INFECTION, UNSPECIFIED [id number] on October 28, 2023 11:02:55 AM [facility] K29.50 ICD10 UNSPECIFIED FISH ROE TECHNICIAN SEAMUS GASTRITIS WITHOUT BLEEDING [id number] on October 28, 2023 11:02:55 AM [facility] R93.2 ICD10 ABNORMAL FINDING S ON DIAGNOSTIC IMAGING OF LIVER AND BILIARY TRACT [id number] on October 28, 2023 11:02:55 AM [facility] I10 ICD10 ESSENTIAL (PRIMARY) HYPERTEN TRAV [id number] on October 28, 2023 11:02:55 AM [facility] K21.9 ICD10 GASTRO-ESOPHAGEA L REFLUX DISEASE WITHOUT ESOPHAGITIS [id number] on October 28, 2023 11:02:55 AM [facility] E66.01 ICD10 MORBID (SEVERE) OBESITY DUE TO EXCESS CALORIES [id number] on October 28, 2023 11:02:55 AM [facility] Z68.41 ICD10 BODY MASS INDEX [BMI] 40.0-44.9, ADULT [id number] on October 28, 2023 11:02:55 AM [facility] Z79.899 ICD10 OTHER MCC (CURRENT) DRUG THERAPY [id number] on October 28, 2023 11:02:55 AM [facility] Z90.49 ICD10 ACQUIRED ABSENCE OF OTHER SPECIFIED PARTS OF DIGESTIVE TRACT [id number] on October 28, 2023 11:02:55 AM [facility] Z90.710 ICD10 ACQUIRED ABSENCE OF BOTH CERVIX AND UTERUS [id number] on October 28, 2023 11:02:55 AM [facility] Z88.2 ICD10 ALLERGY STATUS TO SULFONAMID ES [id number] on October 28, 2023 11:02:55 AM UTC Z88.5 ICD10 ALLERGY STATUS TO NARCOTIC A GENT [id number] on October 28, 2023 11:02:55 AM UTC CARE TEAM Care Frame Gate Mortiser Operator Role DEFINED NO Primary Care KENYATTA CASE Admitting KENYATTA COOPER Surgeon KENYATTA COOPER Primary Attending HISTORY AND PHYSICAL NOTE HISTORY AND PHYSICAL NOTE Note Title Nurse Intake Note Date Of Service October 16, 2023 6: 34:20 PM UTC Created By [id number] on October 16, 2023 6:34:20 PM UTC Signed By [id number] on October 16, 2023 6:35:53 PM UTC Past Medical History Gastroesophageal reflux disease Essential hypertension Past Surgical History Appendectomy Hysterectomy Cholecystectomy Social History tobacco use Never Smoked, 0 yrs alcohol use No Known Use drug use No Known Use marital status Unknown Procedures and Surgeries (Current Encounter) None Electronically signed by Francisca Dejesus RN on 1335 CARE TEAM CARE last inserter Role on Team Status Start Date End Date Update d By CASE KENYATTA ABRAMS Surgeon normal October 21, 2023 3:13:00 PM UTC October 21, 2023 11:13:00 PM UT [id number] on October 28, 2023 11:03:00 AM UT NO DEFINED PRIMARY C PCP normal October 14, 2023 9:39:47 PM UTC October 21, 2023 11:13:00 PM UT [id number] on October 28, 2023 11:03:00 AM UTC CASE KENYATTA ABRAMS Attending normal October 14, 2023 9:39:47 PM UTC October 21, 2023 11:13:00 PM UT [id number] on October 28, 2023 11:03:00 AM UTC CASE KENYATTA ABRAMS Admitting normal October 14, 2023 9:39:47 PM UTC October 21, 2023 11:13:00 PM UT [id number] on October 28, 2023 11:03:00 AM UTC
--- OUTSIDE RECORDS SUMMARY | 2024-06-30 12:16 | XMS_ITS | Clinical Summary ---
Author Organization [facility] , [facility] Address [address] [place] [address] Phone Care Team Providers Care Housesmith Name Role Phone Stefano Mathew Unavailable Unavailable Marco STEWART, Negro Unavailable [phone] Reason for Visit and Chief Complaint The Chief Complaint is: low back pain Problems Includes: Problems addressed during this encounter and other active Problems Current Visit Onset Date Resolved Date Provider Conditio n Status Lower Back Pain 07/30/2023 Brayan Harper PA-C A ctive Last Documented On 3 2:58PM ; [facility] Past Visits Onset Date Resolved Date Provider Condition Status Joint Pain in Both Knees 07/16/2023 Brayan luna PA-C Active Last Documented On 3 2:28PM ; [facility] Plan of Treatment Fall Risk Assessment: This patient has been identified as a fall risk. Balance/gait along with postural blood pressure, vision and home fall hazards have been assessed. Medications have been reviewed, and recommendations made with regard to contributing factors for future falls. Plan of care: Consideration of vitamin D supplementation along with balance and strength training with consideration for formal physical therapy has been discussed with the patient. - Last Documented On 07/31/2023 9:52AM ; [facility] Patient was seen by myself Brayan Harper PA-C. Patient will follow up as needed for now I think she just work on some stretching strengthening exercises she could do some chair yoga she states that that is reasonable she is also is good to look into swimming at the past reasonable for her to do some of this could be related to her knees also which was causing her back to her to she does need to work on weight loss we reiterated that to her also. Did offer PT but she is going to just do some things on her own she said - Last Documented On 07/31/2023 9:52AM ; [facility], [facility] Instructions to patient Lose weight Last Documented On 3 2:59PM ; [facility], [facility] Assessments Includes: Assessments from this encounter Findings - Overweight - Last Documented On 07/31/2023 9:52AM ; [facility], [facility] Low back pain - Last Documented On 07/31/2023 9:52AM ; [facility], [facility] Instructions Includes: Instructions from this encounter Instructions to patient Lose weight Last Documented On 3 2:59PM ; [facility], [facility] Medical Equipment - Implanted Devices Includes: Current Devices No Medical Equipment Recorded Medications Includes: Medications discussed during this encounter and other current Medications Current Medications (continue as prescribed) Wegovy 0.25 MG/0.5ML Subcuta neous Solution Auto-injector 07/15/2023 Provider: Irma Hammer APRN Diagnosis: Last Documented On 3 2:28PM By Laura Garcia ; [facility], [facility] hydroCHLOROthiazide 25 MG Oral Tablet 07/02/2023 Pro vider: Irma Hammer APRN Diagnosis: Last Documented On 3 2:28PM By Laura Cardona [facility] Lisinopril 5 MG Oral Tablet 07/02/2023 Provider: Irma Hammer APRN Diagnosis: Last Documented On 3 2:28PM By Laura Garcia ; [facility], [facility] Medications Administered Includes: Administered Medications from this encounter No Administered Medications Recorded Vital Signs Includes: Vital Signs from this encounter Vital Name 07/30/2023 03:03P Height (in) 61 Weight (lb) 245 Body Mass Index 46.3 Body Surface Area 2.1 Note: sg Last Documented: On 07/30/2023 3:04PM ; [facility] Results Includes: Results discussed during this encounter No Results Recorded For Specified Dates History of Present Illness Includes: History of Present Illness from this encounter LACY Zaman is a 67 year old female. - Allergy list reviewed - Problem list reviewed - Medication list reviewed Patient is here today complains of lower back pain mainly bothers her after standing or walking too much and she really has no significant pain with that she says is described more of just an aching. She denies any radicular symptoms she does have a history of bilateral knee arthritis. She has no complaints of any bowel or bladder issues no previous lower back surgery she is tried some ibuprofen with this. 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 On 3 2:59PM ; [facility] Smoking Status Unknown Procedures and Surgical History Includes: Procedures from this encounter Procedures Code Diagnosis Performing Provider Service Location Service Date X-RAY EXAM OF LOWER SPINE 2-3 VIEWS LIMITED 45633 Other low back pain Brayan Harper PA-C [facility] 07/30/2023 Last Documented On 3 11:41AM ; [facility] use of tobacco assessment performed 1000F Last Documented On 3 2:59PM ; [facility], [facility] patient screened for future fall risk: documentation of any fall with injury in past year 1100F Last Documented On 3 2:59PM ; [facility] review of medications documented 1160F Last Documented On 3 2:59PM ; [facility] Surgical History Last Updated History of appendectomy 07/16/2023 Last Documented On 3 2:59PM ; [facility] History of History of Gallbladder 2022 Last Documented On 3 2:59PM ; [facility] History of hysterectomy 07/16/2023 Last Documented On 3 2:59PM ; [facility] Medical History Includes: Medical History addressed during this encounter No Medical History Recorded Family History Includes: Family History addressed during this encounter Description Last Updated Maternal grandmother's history of diabet es mellitus 07/16/2023 Last Documented On 3 2:59PM ; [facility], [facility] Maternal grandmother's history of family history of heart disease 07/16/2023 Last Documented On 3 2:59PM ; [facility] Paternal history of diabetes mellitus Last Documented On 3 2:59PM ; [facility] Paternal history of family history of he art disease 07/16/2023 Last Documented On 3 2:59PM ; [facility] Paternal history of systemic hypertensio n 07/16/2023 Last Documented On 3 2:59PM ; [facility] Review of Systems Includes: Review of Systems from this encounter Systemic: No symptoms, not feeling tired, no recent weight loss, and no recent weight gain. Head: No headache and no sinus pain. Eyes: No vision problems, no Cataracts, no Glasses/Contacts, and no Glaucoma. Otolaryngeal: No hearing loss and no tinnitus. Cardiovascular: No chest pain or discomfort, no palpitations, no Hypertension, and no High Cholesterol. Pulmonary: No daytime asthma symptoms and no chronic cough. No wheezing. Gastrointestinal: No heartburn and no abdominal pain. No Indigestion, no Acid Reflux, no Peptic Ulcer, no GI Stomach Bleed, and no Ulcers. Endocrine: No hot flashes, no muscle weakness, no Diabetes, no Hypothyroid, and no Hyperthyroid. Hematologic: No easy bleeding, no tendency for easy bruising, and no Anemia. Musculoskeletal: No Arthritis and no lower back pain. No soft tissue swelling and no localized joint pain. Neurological: No dizziness, no convulsions, and no numbness. Psychological: No anxiety, no emotional lability, no depression, and no insomnia. Not crying for no reason. Skin: No dry skin. No Ulcers, no Scars, and no rash. Allergic and Immunologic: No complaint of seasonal allergic reaction. Mental Status Includes: Mental Status from this encounter Description No anxiety Functional Status Includes: Functional Status from this encounter No Functional Status Recorded Physical Exam Includes: Physical Exam from this encounter Allergies Includes: Active Allergies Substance Type Reaction Onset Date Resolved Date Statu s Sulfa Antibiotics Allergy 07/16/2023 A ctive Last Documented On 3 2:58PM ; [facility] Codeine Allergy 07/16/2023 Active Last Documented On 3 2:58PM ; [facility] Encounters Encounter Provider Location Date Check-In Time Check-Out Time Diagnosis NEW PROBLEM/EST PT [facility] 07/30/20 23 2:58PM 3:17PM Overweight Insurance Includes: Active Insurance Policies Plan Name Member ID Group # Subscriber Relationship Effect mallika Dates - of [place] [id number] Samia Zaman Manda f Clinical Notes Includes: Clinical Notes from this encounter * Progress note Date Encounter Last Documented by 07/30/2023 NEW PROBLEM/EST PT Last document ed on 07/31/2023; 9:52 AM, Brayan Harper PA-C; [facility], [facility] Active Problems & Conditions - Joint Pain in Both Knees - Lower Back Pain Chief Complaint The Chief Complaint is: Low back pain. Referred Here Referred by. History of Present Illness Samia Zaman is a 67 year old female. - Allergy list reviewed - Problem list reviewed - Medication list reviewed Patient is here today complains of lower back pain mainly bothers her after standing or walking too much and she really has no significant pain with that she says is described more of just an aching. She denies any radicular symptoms she does have a history of bilateral knee arthritis. She has no complaints of any bowel or bladder issues no previous lower back surgery she is tried some ibuprofen with this. Current Medication - hydroCHLOROthiazide 25 MG Oral Tablet 90 days, 0 refills - Lisinopril 5 MG Oral Tablet 90 days, 0 refills - Wegovy 0.25 MG/0.5ML Subcutaneous Solution Auto-injector 48 days, 0 refills Past Medical/Surgical History Procedural: - History of Gallbladder Surgical: - Appendectomy - Hysterectomy Social History Tobacco use: Tobacco non-user. 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 Allergies - Codeine - Sulfa Antibiotics Family History Paternal: Heart disease Systemic hypertension Diabetes mellitus Maternal grandmother's: Heart disease Diabetes mellitus Review Of Systems Systemic: No symptoms, not feeling tired, no recent weight loss, and no recent weight gain. Head: No headache and no sinus pain. Eyes: No vision problems, no Cataracts, no Glasses/Contacts, and no Glaucoma. Otolaryngeal: No hearing loss and no tinnitus. Cardiovascular: No chest pain or discomfort, no palpitations, no Hypertension, and no High Cholesterol. Pulmonary: No daytime asthma symptoms and no chronic cough. No wheezing. Gastrointestinal: No heartburn and no abdominal pain. No Indigestion, no Acid Reflux, no Peptic Ulcer, no GI Stomach Bleed, and no Ulcers. Endocrine: No hot flashes, no muscle weakness, no Diabetes, no Hypothyroid, and no Hyperthyroid. Hematologic: No easy bleeding, no tendency for easy bruising, and no Anemia. Musculoskeletal: No Arthritis and no lower back pain. No soft tissue swelling and no localized joint pain. Neurological: No dizziness, no convulsions, and no numbness. Psychological: No anxiety, no emotional lability, no depression, and no insomnia. Not crying for no reason. Skin: No dry skin. No Ulcers, no Scars, and no rash. Allergic and Immunologic: No complaint of seasonal allergic reaction. Physical Findings - Vitals taken 07/30/2023 03:03 pm sg Height 61 in Weight 245 lbs Body Mass Index 46.3 kg/m2 Body Surface Area 2.1 m2 Patient is overweight Shed can almost and down to touch her toes. She has 5 out of 5 EHL gastroc quadricep tibialis anterior strength bilaterally negative straight leg raise bilaterally 2+ Achilles and patellar reflexes bilaterally Tests 2 views lumbar spine July 30, 2023 were negative Assessment - Overweight Low back pain Previous Tests Available previous imaging studies were reviewed Available previous history reviewed Counseling/Education - Lose weight Plan Fall Risk Assessment: This patient has been identified as a fall risk. Balance/gait along with postural blood pressure, vision and home fall hazards have been assessed. Medications have been reviewed, and recommendations made with regard to contributing factors for future falls. Plan of care: Consideration of vitamin D supplementation along with balance and strength training with consideration for formal physical therapy has been discussed with the patient. Patient was seen by myself Brayan Harper PA-C. Patient will follow up as needed for now I think she just work on some stretching strengthening exercises she could do some chair yoga she states that that is reasonable she is also is good to look into swimming at the past reasonable for her to do some of this could be related to her knees also which was causing her back to her to she does need to work on weight loss we reiterated that to her also. Did offer PT but she is going to just do some things on her own she said Notes This dictation was done with voice recognition software and may contain errors and omissions. Practice Management Use of tobacco assessment performed and patient screened for future fall risk documentation of any fall with injury in past year Review of medications documented. Care Team - Stefano Mathew
--- OUTSIDE RECORDS SUMMARY | 2024-06-30 12:16 | XMS_ITS ---
Author Organization [facility] , [facility] Address [address] [place] [address] Phone Care Team Providers Care Skirt Trimmer Name Role Phone Stefano Mathew Unavailable Unavailable Marco STEWART, Negro Unavailable [phone] Problems Includes: Active, inactive, and resolved Problems All Visits Onset Date Resolved Date Provider Condition S tatus Lower Back Pain 07/30/2023 Brayan Harper PA-C A ctive Last Documented On 3 2:58PM ; [facility], [facility] Joint Pain in Both Knees 07/16/2023 Brayan luna PA-C Active Last Documented On 3 2:28PM ; [facility], [facility] Plan of Treatment Instructions to patient Lose weight Last Documented On 3 2:59PM ; [facility], [facility] Lose weight Last Documented On 3 2:30PM ; [facility], [facility] Assessments Includes: Assessments for all patient encounters Findings Encounter Date Overweight NEW PROBLEM/EST PT with Brayan Harper PA-C 07/30/2023 Last Documented On 3 9:52AM ; [facility] Overweight Physician Specified with Brayan Harper PA-C 07/16/2023 Last Documented On 3 4:15PM ; [facility], [facility] Instructions Includes: Instructions for all patient encounters Instructions to patient Lose weight Last Documented On 3 2:59PM ; [facility], [facility] Lose weight Last Documented On 3 2:30PM ; [facility], [facility] Medical Equipment - Implanted Devices Includes: Current and historical Devices No Medical Equipment Recorded Medications Includes: Current and historical Medications Current Medications (continue as prescribed) Wegovy 0.25 MG/0.5ML Subcuta neous Solution Auto-injector 07/15/2023 Provider: Irma Hammer APRN Diagnosis: Last Documented On 3 2:28PM By Laura Cardona [facility] hydroCHLOROthiazide 25 MG Oral Tablet 07/02/2023 Pro vider: Irma Hammer APRN Diagnosis: Last Documented On 3 2:28PM By Laura Garcia ; [facility] Lisinopril 5 MG Oral Tablet 07/02/2023 Provider: Irma Hammer APRN Diagnosis: Last Documented On 3 2:28PM By Laura Garcia ; [facility] Medications Administered Includes: Administered Medications in patient's chart No Administered Medications Recorded Vital Signs Includes: Vital Signs from 06/30/2023 through 06/30/2024 Vital Name 07/30/2023 03:03P 07/16/2023 02: 29P Height (in) 61 61 Weight (lb) 245 245 Body Mass Index 46.3 46.3 Body Surface Area 2.1 2.1 Note: sg mg Last Documented: On 07/30/2023 3:04PM ; [facility] On 07/16/2023 2:39PM ; [facility] Results Includes: Results from 06/30/2023 through 06/30/2024 No Results Recorded For Specified Dates History of Present Illness History of Present Illness not supported for this document type No History of Present Illness Recorded Social History Description Last Updated Tobacco non-user 07/16/2023 Last Documented On 3 4:15PM ; [facility] 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 3 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 ; [facility] Smoking Status Unknown Procedures and Surgical History Includes: Procedures from 06/30/2023 through 06/30/2024 Procedures Code Diagnosis Performing Provider Service Location Service Date X-RAY EXAM OF LOWER SPINE 2-3 VIEWS LIMITED 69277 Other low back pain Brayan Harper [facility]-C [facility] 07/30/2023 Last Documented On 3 11:41AM ; [facility] X-RAY EXAM OF KNEE 1 OR 2 VIEWS (Bilateral Procedure) 98134 Bilateral primary osteoarthritis of knee Brayan Harper PA-C [facility] 07/16/2023 Last Documented On 3 5:37AM ; [facility] Surgical History Last Updated History of appendectomy 07/16/2023 Last Documented On 3 4:15PM ; [facility] History of History of Gallbladder 2022 Last Documented On 3 4:15PM ; [facility] History of hysterectomy 07/16/2023 Last Documented On 3 4:15PM ; [facility] Medical History Includes: Medical History in patient's chart No Medical History Recorded Family History Includes: Family History in patient's chart Description Last Updated Maternal grandmother's history of diabet es mellitus 07/16/2023 Last Documented On 3 4:15PM ; [facility] Maternal grandmother's history of family history of heart disease 07/16/2023 Last Documented On 3 4:15PM ; [facility] Paternal history of diabetes mellitus Last Documented On 3 4:15PM ; [facility] Paternal history of family history of he art disease 07/16/2023 Last Documented On 3 4:15PM ; [facility] Paternal history of systemic hypertensio n 07/16/2023 Last Documented On 3 4:15PM ; [facility] Review of Systems Review of Systems not supported for this document type No Review of Systems Recorded Mental Status Description No anxiety Functional Status No Functional Status Recorded Physical Exam Physical Exam not supported for this document type No Physical Exam Recorded Allergies Includes: Active, inactive, and resolved Allergies Substance Type Reaction Onset Date Resolved Date Statu s Sulfa Antibiotics Allergy 07/16/2023 A ctive Last Documented On 3 2:58PM ; [facility], [facility] Codeine Allergy 07/16/2023 Active Last Documented On 3 2:58PM ; [facility] Encounters Includes: Encounters from 06/30/2023 through 06/30/2024 Encounter Provider Location Date Check-In Time Check-Out Time Diagnosis NEW PROBLEM/EST PT Brayan Harper PA-C [facility] 07/30/20 2:58PM 3:17PM Overweight Physician Specified Brayan Harper PA-C [facility] 07/16/20 2:25PM 3:01PM Overweight Insurance Includes: Active Insurance Policies Plan Name Member ID Group # Subscriber Relationship Effect mallika Dates 1 - [facility] [id number] Samia Zaman Manda f Clinical Notes Includes: Signed Clinical Notes starting from 11/08/2022 * Progress note Date Encounter Last Documented by 07/30/2023 NEW PROBLEM/EST PT Last document ed on 07/31/2023; 9:52 AM, Brayan Harper PA-C; [facility], [facility] Active Problems & Conditions - Joint [...] History Tobacco use: Tobacco non-user. 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 Allergies - Codeine - Sulfa Antibiotics Family [...] medications documented. Care Team - Stefano Mathew * Progress note Date Encounter Last Documented by 07/16/2023 Physician Specified Last yarely mcarthur on 07/16/2023; 4:15 PM, Brayan Harper PA-C; [facility], [facility] Active Problems & Conditions - Joint Pain in Both Knees Chief Complaint The Chief Complaint is: KEVIN Knee pain. Referred Here Referred by. History of Present Illness Samia Zaman is a 67 year old female. - Allergy list reviewed - Problem list reviewed - Medication list reviewed Patient is here today with complaints of bilateral knee pain they mainly just cause her to ache and difficulties walking also because of her back and knees. She cannot walk more than about 20 minutes due to her back and knee pain bothering her. It at nighttime they wake she is tried some ibuprofen with that no locking no previous surgery to either knee Current Medication - hydroCHLOROthiazide 25 MG Oral Tablet 90 days, 0 refills - Lisinopril 5 MG Oral Tablet 90 days, 0 refills - Wegovy 0.25 MG/0.5ML Subcutaneous Solution Auto-injector 48 days, 0 refills Past Medical/Surgical History Procedural: - History of Gallbladder Surgical: - Appendectomy - Hysterectomy Social History Tobacco use: Tobacco non-user. 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 Allergies - Codeine - Sulfa Antibiotics Family [...] allergic reaction. Physical Findings - Vitals taken 07/16/2023 02:29 pm mg Height 61 in Weight 245 lbs Body Mass Index 46.3 kg/m2 Body Surface Area 2.1 m2 Patient is overweight she has little bit of tenderness palpation over both medial compartments of both knees range of motion was 0-115 bilaterally stable varus valgus and Maria Esther no pain with Jalil Tests 2 views bilateral knees shows arthritis for both knees July 16, 2023 Assessment - Overweight Bilateral knee OA Counseling/Education - Lose weight Plan Fall Risk [...] will follow up as needed for now she can continue with the ibuprofen with this if this gets worse we can always consider an injection and last resort for with for this would be considering a knee replacement. Notes This dictation was done with voice recognition software and may contain errors and omissions. Practice Management Use of tobacco assessment performed and patient screened for future fall risk documentation of any fall with injury in past year Review of medications documented.
--- OUTSIDE RECORDS SUMMARY | 2024-06-30 12:16 | XMS_ITS ---
Care Plan - [facility], [facility] Created on: June 30, 2024 Samia Solorio Matt : 1955 Sex: Female Author Organization [facility], [facility] Address [address] [place] [address] Phone Care Team Providers Care Analytics Specialist Name Role Phone Stefano Mathew Unavailable Unavailable Marco STEWART, Negro Unavailable [phone]
--- OUTSIDE RECORDS SUMMARY | 2024-06-30 12:16 | XMS_ITS | Clinical Summary ---
Author [facility] Address [address] [place] [address] Phone Care Team Providers Care Communication Specialist Name Role Phone Stefano Mathew Unavailable Unavailable Marco STEAWRT, Negro Unavailable [phone] Reason for Visit and Chief Complaint The Chief Complaint is: KEVIN Knee pain Problems Includes: Problems addressed during this encounter and other active Problems Current Visit Onset Date Resolved Date Provider Loyda keller Status Lower Back Pain 07/30/2023 Brayan Harper PA-C A ctive Last Documented On 3 2:58PM ; [facility] Joint Pain in Both Knees 07/16/2023 Brayan luna PA-C Active Last Documented On 3 2:28PM ; [facility] Plan of Treatment Fall Risk Assessment: This [...] with the patient. - Last Documented On 07/16/2023 4:15PM ; [facility] Patient was seen by myself Brayan Harper PA-C. Patient will follow up as needed for now she can continue with the ibuprofen with this if this gets worse we can always consider an injection and last resort for with for this would be considering a knee replacement. - Last Documented On 07/16/2023 4:15PM ; [facility] Instructions to patient Lose weight Last Documented On 3 2:30PM ; [facility] Assessments Includes: Assessments from this encounter Findings - Overweight - Last Documented On 07/16/2023 4:15PM ; [facility] Bilateral knee OA - Last Documented On 07/16/2023 4:15PM ; [facility] Instructions Includes: Instructions from this encounter Instructions to patient Lose weight Last Documented On 3 2:30PM ; [facility] Medical Equipment - Implanted Devices Includes: Current Devices No Medical Equipment Recorded Medications Includes: Medications discussed during this encounter and other current Medications Current Medications (continue as prescribed) Wegovy 0.25 MG/0.5ML Subcuta neous Solution Auto-injector 07/15/2023 Provider: Irma Hammer APRN Diagnosis: Last Documented On 3 2:28PM By Laura Garcia ; [facility] hydroCHLOROthiazide 25 MG Oral Tablet 07/02/2023 Pro vider: Irma Hammer APRN Diagnosis: Last Documented On 3 2:28PM By Laura Garcia ; [facility] Lisinopril 5 MG Oral Tablet 07/02/2023 Provider: Irma Hammer APRN Diagnosis: Last Documented On 3 2:28PM By Laura Garcia ; [facility] Medications Administered Includes: Administered Medications from this encounter No Administered Medications Recorded Vital Signs Includes: Vital Signs from this encounter Vital Name 07/16/2023 02:29P Height (in) 61 Weight (lb) 245 Body Mass Index 46.3 Body Surface Area 2.1 Note: mg Last Documented: On 07/16/2023 2:39PM ; [facility] Results Includes: Results discussed during this encounter [...] locking no previous surgery to either knee Social History Description Last Updated Tobacco non-user 07/16/2023 Last Documented On 3 4:15PM ; [facility]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 On 3 4:15PM ; [facility] Smoking Status Unknown Procedures and Surgical History Includes: Procedures from this encounter Procedures Code Diagnosis Performing Provider Service Location Service Date X-RAY EXAM OF KNEE 1 OR 2 VIEWS (Bilateral Procedure) 92278 Bilateral primary osteoarthritis of knee Brayan Harper PA-C [facility] 07/16/2023 Last Documented On 3 5:37AM ; [facility] use of tobacco assessment performed 1000F Last Documented On 3 2:30PM ; [facility] patient screened for future fall risk: documentation of any fall with injury in past year 1100F Last Documented On 3 2:30PM ; [facility] review of medications documented 1160F Last Documented On 3 2:30PM ; [facility] Surgical History Last Updated History of appendectomy 07/16/2023 Last Documented On 3 4:15PM ; [facility] History of History of Gallbladder 2022 Last Documented On 3 4:15PM ; [facility] History of hysterectomy 07/16/2023 Last Documented On 3 4:15PM ; [facility] Medical History Includes: Medical History addressed during this encounter No Medical History Recorded Family History Includes: Family History addressed during this encounter Description Last Updated Maternal grandmother's history of diabet es mellitus 07/16/2023 Last Documented On 3 4:15PM ; [facility] Maternal grandmother's history of family history of heart disease 07/16/2023 Last Documented On 3 4:15PM ; [facility] Paternal history of diabetes mellitus Last Documented On 3 4:15PM ; [facility] Paternal history of family history of he art disease 07/16/2023 Last Documented On 3 4:15PM ; [facility] Paternal history of systemic hypertensio n 07/16/2023 Last Documented On 3 4:15PM ; [facility] Review of Systems Includes: Review of Systems [...] ctive Last Documented On 3 2:58PM ; [facility] Codeine Allergy 07/16/2023 Active Last Documented On 3 2:58PM ; [facility] Encounters Encounter Provider Location Date Check-In Time Check-Out Time Diagnosis Physician Specified [facility] 07/16/20 23 2:25PM 3:01PM Overweight Insurance Includes: Active Insurance Policies Plan Name Member ID Group # Subscriber Relationship Effect mallika Dates 1 - [facility] [id number] Samia allen Clinical Notes Includes: Clinical Notes from this encounter * Progress note Date Encounter Last Documented by 07/16/2023 Physician Specified Last yarely mcarthur on 07/16/2023; 4:15 PM, Brayan Harper PA-C; [facility] Active Problems & Conditions - Joint Pain [...] History Tobacco use: Tobacco non-user. 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 Allergies - Codeine - Sulfa Antibiotics Family [...]
--- NOTE | 2024-06-30 14:45 | PC.NURSE ---
Aox4, pain meds given once this shift, no c/o n/v, upadlib to the restroom, NPO with ice chips. NS @ 100 ml/hr through 20g R ac, will continue to monitor.
[2024-06-30 16:00] VITALS: BP 160/70; PULSE 94; RESP 18; TEMP 37.1; O2SAT 95
[2024-06-30 19:51] VITALS: BP 172/76; PULSE 93; RESP 18; TEMP 36.6; O2SAT 98
[2024-06-30 20:10] VITALS: O2SAT 98
[2024-06-30] MEDS: ENOXAPARIN 40MG/0.4ML SYRINGE 40 MG SQ (20:10)
[2024-06-30 21:52] VITALS: BMI 36.5
[2024-06-30 22:05] VITALS: BP 115/51; PULSE 64; RESP 16; TEMP 36.7; O2SAT 95
[2024-07-01] MEDS: HYDROMORPHONE 2MG/ML SYRINGE 1 MG IV ×2 (00:23→04:56)
[2024-07-01] MEDS: 0.9 % SODIUM CHLORIDE 1000ML 1,000 ML 100 ML IV (00:27)
[2024-07-01 05:33] VITALS: BP 157/76; PULSE 92; RESP 18; TEMP 36.8; O2SAT 96
--- NOTE | 2024-07-01 05:49 | PC.NURSE ---
Patient alert and oriented x4 throughout shift. Tolerating room air well. Lung sounds clear. Abdomen soft, but tender. Bowel sounds active x4 quadrants. Patient has requested pain medication often this shift, administered per MAR. After administering, pain quickly subsides. No other complaints expressed this shift. Patient has ambulated to/from restroom independently well. NS running at 100 mls/hr. Call light within reach.
[2024-07-01 06:55] LABS: Basophils % 0.2 % (0.1-2.0); Eosinophils # 0.1 K/mm3 (0.0-0.4); Eosinophils % 0.4 % (0.1-12.0); Hematocrit 36.5 % (37.0-47.0); Hemoglobin 11.7 g/dL (12.2-16.2); Lymphocytes # 0.8 K/mm3 (0.7-4.5); Lymphocytes % 4.8 % (10-50); Mean Corpuscular HGB Conc 31.9 g/dL (31.8-35.4); Mean Corpuscular Hemoglobin 29.8 pg (27.0-31.2); Mean Corpuscular Volume 93.5 fl (81-99); Mean Platelet Volume 8.7 fl (7.4-10.4); Monocytes # 0.9 K/mm3 (0.1-1.0); Monocytes % 5.1 % (1.7-9.3); Neutrophils # 15.2 K/mm3 (1.8-7.8); Neutrophils % 89.6 % (37.0-80.0); Platelet Count 323 K/mm3 (142-424); Red Cell Distribution Width 13.9 % (11.5-17.5)
[2024-07-01 06:57] LABS: MANUAL DIFFERENTIAL MANUAL DIFFERENTIAL (MANUAL DIFF)
[2024-07-01 07:05] LABS: Albumin Level 3.3 g/dl (3.5-5.0); Chloride 99 mmol/L (98-107); Potassium 4.3 mmoL/L (3.5-5.1); Sodium 128 mmol/L (136-145)
[2024-07-01 07:07] LABS: Amylase 59 U/L (30-110); Blood Urea Nitrogen 9 mg/dl (7-17)
[2024-07-01 07:08] LABS: Alanine Aminotransferase 72 U/L (12-78); Albumin/Globulin Ratio 1.2 (1.1-1.8); Alkaline Phosphatase 125 U/L (38-126); Anion Gap 8.3 mEq/L (5-15); Aspartate Amino Transferase 52 U/L (14-36); Bilirubin,Total 0.9 mg/dl (0.2-1.3); Calcium 8.1 mg/dl (8.4-10.2); Carbon Dioxide 25 mmol/L (22.0-30.0); Chol/HDL Ratio 2.9 (1-3.5); Cholesterol 134 mg/dl (140-200); Creatinine Clearance Estimated 19 mL/min (50-200); Estimated Glomerular Filt Rate 83 ml/min (>60); GFR (African American) 100 ML/MIN (>60); Globulin 2.8 g/dL (1.3-3.2); Glucose 81 mg/dl (74-100); HDL Cholesterol 47 mg/dl (40-60); Lipase 136 U/L (23-300); Total Protein,Serum 6.1 g/dl (6.3-8.2); Triglycerides 66 mg/dl (30-150); VLDL Cholesterol 13 mg/dL (0-40)
[2024-07-01 07:19] LABS: Direct LDL Cholesterol 43.11 mg/dL (100-129)
[2024-07-01 08:00] VITALS: BP 178/70; PULSE 93; RESP 18; TEMP 36.9; O2SAT 98
--- NOTE | 2024-07-01 08:15 | P.PN_ITS ---
Subjective *Date: 07/01/24 *Time: 08:43 Interval history: Patient states she is feeling about the same today. She states her pain is under control as long as she takes pain medication. Most of her pain is located in the left mid and lower quadrant. She has been eating some ice chips and denies any vomiting. She has not had a bowel movement since Saturday. She was able to rest a little bit better last night. Medical Exam Vital signs and Labs for Last 24 Hours: Vital Signs Temp Pulse Resp BP Pulse Ox O2 Del Method 07/01/24 08:00 98.4 F 93 H 18 178/70 H 98 Room Air 07/01/24 06:44 Room Air 07/01/24 05:33 98.3 F 92 H 18 157/76 H 96 Room Air 07/01/24 04:56 Room Air 07/01/24 03:03 Room Air 07/01/24 01:03 Room Air 06/30/24 23:00 Room Air 06/30/24 22:05 98.1 F 64 16 115/51 L 95 Room Air 06/30/24 21:05 Room Air 06/30/24 20:10 98 Room Air 06/30/24 19:51 97.8 F 93 H 18 172/76 H 98 Room Air 06/30/24 17:37 Room Air 06/30/24 16:00 98.7 F 94 H 18 160/70 H 95 Room Air 06/30/24 14:50 Room Air 06/30/24 13:38 Room Air 06/30/24 11:42 Room Air 06/30/24 10:09 Room Air 06/30/24 08:22 Room Air Intake and Output 06/30/24 07/01/24 07/01/24 19:59 03:59 11:59 Intake Total 113 / 4 114 / 2284 Output Total 0 / 0 0 / 0 Balance 113 / 228 114 / 2284 Intake: Intake, Oral Amount 0 / 0 0 / 0 Intake, Oral Supplement Amount 0 / 0 0 / 0 Intake, Total IV Amount 113 2284 114 / 2284 0.9 % Sodium Chloride 1000ML 1, 1134 114 / 2284 000 ml @ 100 mls/hr IV .Q10H [facility] Rx#:[id number] Output: Output, Urine Amount 0 / 0 0 / 0 Other: Number of Voids 0 1 0 Number of Unmeasured Voids 1 1 1 Weight 193 lb 4.8 oz 50 lb 9.6 oz Patient Weight 07/01/24 11:59 Weight 50 lb 9.6 oz Laboratory Results - last 24 hr 06/30/24 06:44: Total Counted 100, Neutrophils % (Manual) 87 H, Band Neutrophils % 1.0, Lymphocytes % (Manual) 5 L, Monocytes % (Manual) 7, Platelet Estimate Normal, RBC Morphology Normal 07/01/24 06:17: WBC 17.0 H, RBC 3.90 L, Hgb 11.7 L, Hct 36.5 L, MCV 93.5, MCH 29.8, MCHC 31.9, RDW 13.9, Plt Count 323, MPV 8.7, Neut % (Auto) 89.6 H, Lymph % (Auto) 4.8 L, [place] % (Auto) 5.1, Eos % (Auto) 0.4, Baso % (Auto) 0.2, Neut # (Auto) 15.2 H, Lymph # (Auto) 0.8, [place] # (Auto) 0.9, Eos # (Auto) 0.1, Baso # (Auto) 0.0, Sodium 128 L, Potassium 4.3, Chloride 99, Carbon Dioxide 25, Anion Gap 8.3, BUN 9 D, Creatinine 0.70, Estimated Creat Clear 19, Estimated GFR 83, Est GFR ( Amer) 100, Glucose 81, Calcium 8.1 L, Total Bilirubin 0.9, AST 52 H D, ALT 72 D, Alkaline Phosphatase 125, Total Protein 6.1 L, Albumin 3.3 L D, Globulin 2.8, Albumin/Globulin Ratio 1.2, Triglycerides 66, Cholesterol 134 L , LDL Cholesterol Direct 43.11 L, VLDL Cholesterol 13, HDL Cholesterol 47, Cholesterol/HDL Ratio 2.9, Amylase 59, Lipase 136 I & O for Labs for Last 24 Hours: Intake & Output 06/28/24 06/29/24 06/30/24 07/01/24 11:59 11:59 11:59 11:59 Intake Total 950 / 950 2284 / 2284 Output Total 0 / 0 0 / 0 Balance 950 / 950 2284 / 2284 Weight 249 lb 5 oz 50 lb 9.6 oz Constitutional: Present no acute distress Respiratory: Present CTA bilaterally Cardiac: Present Reg Rate and Rhythm GI: Present soft, distention, tenderness (LMQ and LLQ) and hypoactive bowel sounds; Absent guarding, rebound or rigidity Extremities: Absent edema Skin: Present intact Neuro: Present alert and awake Assessment and Plan *Assessment and plan (1) Acute pancreatitis: Status: Acute Category: Medical Code(s): K85.90 - Acute pancreatitis without necrosis or infection, unspecified (2) Hypertension: Status: Acute Category: Medical Code(s): I10 - Essential (primary) hypertension (3) Bandemia without diagnosis of specific infection: Status: Acute Category: Medical Code(s): D72.825 - Bandemia (4) BMI 45.0-49.9, adult: Status: Acute Category: Medical Code(s): Z68.42 - Body mass index [BMI] 45.0-49.9, adult (5) Hyponatremia: Status: Acute Category: Medical Code(s): E87.1 - Hypo-osmolality and hyponatremia (6) Elevated LFTs: Status: Acute Category: Medical Code(s): R79.89 - Other specified abnormal findings of blood chemistry (7) Elevated lipase: Status: Acute Category: Medical Code(s): R74.8 - Abnormal levels of other serum enzymes Plan Liver function tests are improving and amylase and lipase have normalized. Sodium has improved slightly. White blood cell count is also improving. Patient is still requiring pain medication. Will discuss further care with Dr. Avilez. Dr. Avilez entry - Saw patient, agree with above note. Will advance to full liquid diet and recheck labs tomorrow, saline lock IVF.
[2024-07-01 08:35] LABS: Lymphocytes % 8 % (10-50); Monocytes % 4 % (2-9); Neutrophils % 88 % (42-76); Total Cells Counted 100
[2024-07-01 08:36] LABS: Platelet Estimate Normal; RBC Morphology Normal
[2024-07-01 08:38] VITALS: BMI 47.1
[2024-07-01] MEDS: PANTOPRAZOLE 40MG TABLET 40 MG PO ×2 (08:44→20:43)
[2024-07-01] MEDS: AMLODIPINE 5MG TABLET 5 MG PO (08:44)
[2024-07-01] MEDS: ENOXAPARIN 40MG/0.4ML SYRINGE 40 MG SQ (08:44)
[2024-07-01] MEDS: ACETAMINOPHEN 325MG TAB 650 MG PO ×2 (11:14→20:43)
[2024-07-01 13:39] VITALS: BMI 47.0
[2024-07-01 16:00] VITALS: BP 153/91; PULSE 87; RESP 18; TEMP 36.9; O2SAT 98
--- NOTE | 2024-07-01 17:47 | PC.NURSE ---
A&Ox4. Pt c/o pain once this shift but was relieved by tylenol. Pt has had a bowel movement today and stated after that she felt better. Pt upgraded to a full liquid diet and is tolerating it well with no c/o nausea/vomiting. Pt resting comfortably in bed with no complaints at this time.
[2024-07-01 19:51] VITALS: BP 160/77; PULSE 116; RESP 16; TEMP 36.9; O2SAT 97
[2024-07-01 20:00] VITALS: PULSE 116; O2SAT 97
[2024-07-02] VITALS: BP 126/60; PULSE 90; RESP 18; TEMP 37.1; O2SAT 94
[2024-07-02 04:00] VITALS: BMI 46.5
--- NOTE | 2024-07-02 04:17 | PC.NURSE ---
Pt is alert and oriented x4 and currently tolerating RA well. At the beginning of this shift pt c/o tenderness in her left abdomen and rated pain a 4/10. Pt was treated per JAN and has denied pain since. Pt has slept well this shift and denies other needs.
[2024-07-02 04:50] VITALS: BP 145/75; PULSE 93; RESP 18; TEMP 37.1; O2SAT 95
[2024-07-02 06:40] LABS: Basophils % 0.3 % (0.1-2.0); Eosinophils # 0.2 K/mm3 (0.0-0.4); Eosinophils % 1.9 % (0.1-12.0); Hematocrit 34.5 % (37.0-47.0); Hemoglobin 11.5 g/dL (12.2-16.2); Lymphocytes # 0.9 K/mm3 (0.7-4.5); Lymphocytes % 8.5 % (10-50); Mean Corpuscular HGB Conc 33.2 g/dL (31.8-35.4); Mean Corpuscular Hemoglobin 30.6 pg (27.0-31.2); Mean Corpuscular Volume 92.2 fl (81-99); Monocytes # 0.6 K/mm3 (0.1-1.0); Monocytes % 5.8 % (1.7-9.3); Neutrophils # 8.9 K/mm3 (1.8-7.8); Neutrophils % 83.5 % (37.0-80.0); Platelet Count 349 K/mm3 (142-424); Red Blood Count 3.75 M/mm3 (4.20-5.40); Red Cell Distribution Width 13.9 % (11.5-17.5); White Blood Count 10.6 K/mm3 (4.8-10.8)
[2024-07-02 06:47] LABS: Albumin Level 3.3 g/dl (3.5-5.0); Chloride 102 mmol/L (98-107); Potassium 3.7 mmoL/L (3.5-5.1); Sodium 134 mmol/L (136-145)
[2024-07-02 06:49] LABS: Amylase 43 U/L (30-110); Anion Gap 7.7 mEq/L (5-15); Blood Urea Nitrogen 7 mg/dl (7-17); Carbon Dioxide 28 mmol/L (22.0-30.0); Creatinine Clearance Estimated 40 mL/min (50-200); Estimated Glomerular Filt Rate 83 ml/min (>60); GFR (African American) 100 ML/MIN (>60)
[2024-07-02 06:50] LABS: Alanine Aminotransferase 51 U/L (12-78); Albumin/Globulin Ratio 1.1 (1.1-1.8); Alkaline Phosphatase 125 U/L (38-126); Aspartate Amino Transferase 31 U/L (14-36); Bilirubin,Total 0.9 mg/dl (0.2-1.3); Calcium 8.2 mg/dl (8.4-10.2); Globulin 2.9 g/dL (1.3-3.2); Glucose 92 mg/dl (74-100); Lipase 53 U/L (23-300); Total Protein,Serum 6.2 g/dl (6.3-8.2)
[2024-07-02 07:55] VITALS: BP 156/76; PULSE 90; RESP 18; TEMP 36.7; O2SAT 96
[2024-07-02] MEDS: PANTOPRAZOLE 40MG TABLET 40 MG PO (08:13)
[2024-07-02] MEDS: AMLODIPINE 5MG TABLET 5 MG PO (08:13)
--- NOTE | 2024-07-02 08:23 | EXP.ACUTE.PN ---
Subjective *Date: 07/02/24 *Time: 08:40 Interval history: Patient is feeling much better today. Pain has improved. She has not needed any pain medication. She did have a bowel movement and this seemed to help. She has been able to eat. She is anxious to go home. Medical Exam Vital signs and Labs for Last 24 Hours: Vital Signs Temp Pulse Resp BP Pulse Ox O2 Del Method 07/02/24 08:00 Room Air 07/02/24 07:55 98.1 F 90 18 156/76 H 96 Room Air 07/02/24 06:44 Room Air 07/02/24 05:00 Room Air 07/02/24 04:50 98.7 F 93 H 18 145/75 H 95 Room Air 07/02/24 03:00 Room Air 07/02/24 01:00 Room Air 07/02/24 00:00 98.8 F 90 18 126/60 94 L Room Air 07/01/24 23:00 Room Air 07/01/24 21:00 Room Air 07/01/24 20:00 116 H 97 Room Air 07/01/24 19:51 98.5 F 116 H 16 160/77 H 97 Room Air 07/01/24 19:00 Room Air 07/01/24 17:00 Room Air 07/01/24 16:00 98.4 F 87 18 153/91 H 98 Room Air 07/01/24 15:00 Room Air 07/01/24 13:00 Room Air 07/01/24 11:00 Room Air 07/01/24 09:00 Room Air Intake and Output 07/01/24 07/02/24 07/02/24 19:59 03:59 11:59 Intake Total 870 / 1230 360 / 1230 Output Total 0 / 0 0 / 0 Balance 870 / 1230 360 / 1230 0 / 1230 Intake: Intake, Oral Amount 870 / 1230 360 / 1230 Intake, Oral Supplement Amount 0 / 0 Output: Output, Urine Amount 0 / 0 0 / 0 Other: Number of Voids 0 Number of Unmeasured Voids 1 1 Number of Bowel Movements 1 Weight 249 lb 1.957 oz 246 lb 12.8 oz Patient Weight 07/02/24 11:59 Weight 246 lb 12.8 oz Laboratory Results - last 24 hr 07/01/24 06:17: Total Counted 100, Neutrophils % (Manual) 88 H, Lymphocytes % (Manual) 8 L, Monocytes % (Manual) 4, Platelet Estimate Normal, RBC Morphology Normal 07/02/24 06:26: WBC 10.6 D, RBC 3.75 L, Hgb 11.5 L, Hct 34.5 L, MCV 92.2, MCH 30.6, MCHC 33.2, RDW 13.9, Plt Count 349, MPV 8.0, Neut % (Auto) 83.5 H, Lymph % (Auto) 8.5 L, [place] % (Auto) 5.8, Eos % (Auto) 1.9, Baso % (Auto) 0.3, Neut # (Auto) 8.9 H, Lymph # (Auto) 0.9, [place] # (Auto) 0.6, Eos # (Auto) 0.2, Baso # (Auto) 0.0, Sodium 134 L, Potassium 3.7, Chloride 102, Carbon Dioxide 28, Anion Gap 7.7, BUN 7, Creatinine 0.70, Estimated Creat Clear 40, Estimated GFR 83, Est GFR ( Amer) 100, Glucose 92, Calcium 8.2 L, Total Bilirubin 0.9, AST 31 D, ALT 51 D, Alkaline Phosphatase 125, Total Protein 6.2 L, Albumin 3.3 L, Globulin 2.9, Albumin/Globulin Ratio 1.1, Amylase 43, Lipase 53 I & O for Labs for Last 24 Hours: Intake & Output 06/29/24 06/30/24 07/01/24 07/02/24 11:59 11:59 11:59 11:59 Intake Total 950 / 950 2284 / 2284 1230 / 1230 Output Total 0 / 0 0 / 0 0 / 0 Balance 950 / 950 2284 / 2284 1230 / 1230 Weight 249 lb 5 oz 249 lb 8 oz 246 lb 12.8 oz Constitutional: Present no acute distress Respiratory: Present CTA bilaterally Cardiac: Present Reg Rate and Rhythm GI: Present soft; Absent distention, tenderness, guarding, rebound or rigidity Extremities: Absent edema Skin: Present intact Neuro: Present alert and awake Assessment and Plan *Assessment and plan (1) Acute pancreatitis: Status: Acute Category: Medical Code(s): K85.90 - Acute pancreatitis without necrosis or infection, unspecified (2) Hypertension: Status: Acute Category: Medical Code(s): I10 - Essential (primary) hypertension (3) Bandemia without diagnosis of specific infection: Status: Acute Category: Medical Code(s): D72.825 - Bandemia (4) BMI 45.0-49.9, adult: Status: Acute Category: Medical Code(s): Z68.42 - Body mass index [BMI] 45.0-49.9, adult (5) Hyponatremia: Status: Acute Category: Medical Code(s): E87.1 - Hypo-osmolality and hyponatremia (6) Elevated LFTs: Status: Acute Category: Medical Code(s): R79.89 - Other specified abnormal findings of blood chemistry (7) Elevated lipase: Status: Acute Category: Medical Code(s): R74.8 - Abnormal levels of other serum enzymes Plan WBC has normalized. Pancreatic enyzmes are normal. Patient is stable for discharge. Dr. Avilez entry - Saw patient, agree with above note.
--- NOTE | 2024-07-03 13:02 | CARE MANAGER ---
Called and spoke with patient regarding recent discharge. She stated that she is doing well. Aware of scheduled f/u appt. No concerns voiced at time of call.
--- NOTE | 2024-07-06 09:37 | EXP.DC.SUM ---
General Admission date:: 06/29/24 Discharge date: 07/02/24 HPI HPI HPI: Mrs. Zaman is a 68 year old patient of [facility] who typically sees Dr. Mathew for her primary medical care. She presented to [facility] ER yesterday complaining of a 2 day history of left sided abdominal pain. She though her pain was related to constipation as she had been having fewer bowel movements recently but on the day of admission she took a dulcolax tablet and subsequently vomited and had much worse abdominal pain. The pain was similar to her previous episode of pancreatitis, which was 11 months ago. She states she was treated at [facility] then, had 2 separate admissions and was eventually seen by Dr. Beard in [place]. She states that he was unable to find a cause for her pancreatitis, as her gallbladder has been removed, she does not drink alcohol and her triglycerides are normal. Hospital Course Hospital Course Hospital Course: Abdominal pain did improve and was initially controlled with pain medication. The pain was mostly located in the left mid and lower quadrants of the abdomen. Initially she was started on ice chips and then diet was increased without issues. Amylase and lipase normalized. Liver function studies improved. White blood cell count also improved. Initially she received IV fluids. 07/02/2024 she was no longer requiring pain medication. Her bowels did move and this seemed to help. She was able to eat and she was anxious to go home. White blood cell count had normalized as well. And she was discharged home. Exam Data for Last 24 hours Vital signs and Labs for Last 24 Hours: Temp Pulse Resp BP Pulse Ox O2 Del Method 98.1 F 90 18 156/76 H 96 Room Air 07/02/24 07:55 07/02/24 07:55 07/02/24 07:55 07/02/24 07:55 07/02/24 07:55 07/02/24 08:43 Narrative: Constitutional: Present no acute distress Respiratory: Present CTA bilaterally Cardiac: Present Reg Rate and Rhythm GI: Present soft; Absent distention, tenderness, guarding, rebound or rigidity Extremities: Absent edema Skin: Present intact Neuro: Present alert and awake Results Data Completed and Pending Completed studies during hospitalization [Text1]: CT of abd/pelvis 06/29/2024 IMPRESSION: 1. Peripancreatic edema most likely represents acute pancreatitis. No peripancreatic fluid collection. Patent splenic and portal veins. 2. Hepatic steatosis. DS: Diagnosis Discharge Diagnosis (1) Acute pancreatitis: Status: Acute Code(s): K85.90 - Acute pancreatitis without necrosis or infection, unspecified (2) Hypertension: Status: Acute Code(s): I10 - Essential (primary) hypertension (3) Bandemia without diagnosis of specific infection: Status: Acute Code(s): D72.825 - Bandemia (4) BMI 45.0-49.9, adult: Status: Acute Code(s): Z68.42 - Body mass index [BMI] 45.0-49.9, adult (5) Hyponatremia: Status: Acute Code(s): E87.1 - Hypo-osmolality and hyponatremia (6) Elevated LFTs: Status: Acute Code(s): R79.89 - Other specified abnormal findings of blood chemistry (7) Elevated lipase: Status: Acute Code(s): R74.8 - Abnormal levels of other serum enzymes Meds Home Medications and Allergies Home Medications ?Medication ?Instructions ?Recorded ?Confirmed ?Type lisinopril 20 mg tablet 20 mg PO DAILY 08/15/23 06/29/24 History pantoprazole 40 mg tablet,delayed 40 mg PO DAILY #30 tabs 08/18/23 06/29/24 Rx release New Prescriptions to Start Prescriptions: Allergies Allergy/AdvReac Type Severity Reaction Status Date / Time Sulfa (Sulfonamide Allergy Unknown Verified 04/17/22 11:21 Antibiotics) codeine AdvReac Unknown NA-NAUSEA/VOMITING, Verified 04/17/22 11:21 DRIVES CRAZY Discharge Plan Disposition Patient Disposition: Home, Self-Care Condition: Good Discharge Order Discharge Orders: Discharge Order (Routine); Ordered 07/02/24 Ordered By: Les Avilez Follow up Plan Follow up with: Adelso Mathew MD [Primary Care Provider] - 08/06/24 10:00 am Prescriptions/Medication Reconciliation: Continued lisinopril 20 mg tablet 20 mg PO DAILY pantoprazole 40 mg Tablet,Delayed Release (Dr/Ec) 40 mg PO DAILY Qty: 30 2RF Problem Reconciliation Problems Reviewed?: Yes Patient Discharge Instructions ACTIVITY: Continue current activity DIET: continue same diet Patient Instructions: DI for Pancreatitis, DI for Hyponatremia Print Language: Arabic Providers Primary Care Provider: Adelso Mathew Admit Provider: Reji Resendez Attending Provider: Adelso Mathew
== END 2024-07-02 09:16 | disposition home or self-care (01) | DRG 439 ==
LOC: ER 19:19 → 2ND 19:40
PROVIDERS: Family Medicine; Admitting Provider Internal Medicine Adolescent Medicine; Emergency Provider Student in an Organized Health Care Education/Training Program; PCP Family Medicine; Visit Provider Family Medicine
DX: K85.90 Acute pancreatitis without necrosis or infection, unspecified (principal); E87.1 Hypo-osmolality and hyponatremia; I10 Essential (primary) hypertension; D72.825 Bandemia
CPT/HCPCS: 36415; 74177; 80053; 80061; 81001; 82150; 83605; 83690; 85007; 85025; 85027; 99285; J1170; J1650; J2270; J2405; J7120; Q9967

== ENCOUNTER 2024-09-09 14:39 | Outpatient (CLI) | payer BC, SELFPAY ==
--- NOTE | 2024-09-09 14:44 | XR_ITS ---
FINAL REPORT CLINICAL HISTORY: SCREENING FINDINGS: Using L1-4, the bone mineral density of the spine is 0.900 g/cm2, corresponding to T-score of -1.3 which is within the osteopenic range. Using the left hip, the bone mineral density of the femoral neck is 0.783 g/cm2, corresponding to a T-score of -0.6 which is within the normal range. Using the right hip, the bone mineral density of the femoral neck is 0.700 g/cm2, corresponding to a T-score of -1.3 which is within the osteopenic range. FRAX 10 year fracture risk is 8.2% for a hip fracture and 1.0% for a major osteoporotic fracture. IMPRESSION: Osteopenic bone mineral density of the lumbar spine and right femoral neck. Normal bone mineral density of the left femoral neck. NOTE: T-score: Standard deviation compared with peak bone mass of young adult mean. *Following the recommendations of the International Society of Bone densitometry, classification of hip BMD is based on the lower of two T-scores; total hip or femoral neck. Reviewed, Interpreted and Dictated by Seamus Godoy MD Transcribed by Oneyda Kennedy Authenticated and [facility]
--- NOTE | 2024-09-09 14:44 | MM_ITS ---
PROCEDURE INFORMATION: Exam: MG Bilateral Screening 3D Mammography Exam date and time: 09/09/2024 2:45 PM Age: 69 years old Clinical indication: Screening examination TECHNIQUE: Imaging protocol: Bilateral Screening tomosynthesis and 2D mammography including computer-aided detection (CAD) when performed. COMPARISON: 1. MG MM DIG SCREENING MAMM BI W/CAD 07/05/2023 1:19 PM 2. MG MM DIG SCREENING MAMM BI W/CAD 07/08/2019 9:36 AM FINDINGS: MAMMOGRAPHY: Breast composition: There are scattered areas of fibroglandular density. Mass: No suspicious masses. Architectural distortion: None. Calcifications: No suspicious calcifications. Asymmetric density: None. Skin thickening: None. Axillary adenopathy: None. IMPRESSION: No mammographic evidence of malignancy. Annual screening is recommended unless otherwise clinically indicated. ASSESSMENT: BI-RADS Category 1: Negative.
== END 2024-09-09 23:59 | disposition home or self-care (01) ==
LOC: RAD 14:40
PROVIDERS: PCP Family Medicine; Visit Provider Family Medicine
DX: Z12.31 Encounter for screening mammogram for malignant neoplasm of breast (principal); N60.19 Diffuse cystic mastopathy of unspecified breast; Z13.820 Encounter for screening for osteoporosis; M85.80 Other specified disorders of bone density and structure, unspecified site
CPT/HCPCS: 77063; 77067; 77080

== ENCOUNTER 2025-03-10 08:58 | Outpatient (CLI) | payer BC, SELFPAY ==
--- NOTE | 2025-03-10 09:21 | ECG_ITS ---
APPROVED REPORT Exam: Resting ECG HR:68 bpm ECG Measurements Heart Rate 68 AXES MN 187 P 23 QRSd 85 QRS 11 QT 370 T 52 QTc 388 Conclusion SINUS RHYTHM LOW QRS VOLTAGE IN PRECORDIAL LEADS [QRS DEFLECTION < 1.0 mV IN CHEST LEADS] BORDERLINE ECG UNCONFIRMED REPORT Electronically signed by : Reji Resendez MD 03/11/2025 08:43:18
== END 2025-03-10 23:59 | disposition home or self-care (01) ==
PROVIDERS: PCP Family Medicine; Visit Provider Family Medicine
DX: I49.49 Other premature depolarization (principal); R94.31 Abnormal electrocardiogram [ECG] [EKG]
CPT/HCPCS: 93005; 93225; 93227

== ENCOUNTER 2025-05-31 11:15 | Outpatient (CLI) | payer BC, SELFPAY ==
--- OUTSIDE RECORDS SUMMARY | 2024-11-26 05:30 | XMS_ITS ---
Author Organization [facility] Address [address] [facility] [address] [place] [id number] Care Team Providers Care Caster Investment Casting Name Role Phone Les Avilez Primary Care Provider Allergies Allergen (clinical drug ingredient) Drug/Non Drug Allergy documented on EMR Reaction Allergy Type Onset Date Status Substance with sulfonamide structure and antibacterial mechanism of action (substance) Sulfa Antibiotics Unknown Drug Allergy Active REASON FOR VISIT lost hearing in the right ear Medications Medication SIG (Take, Route, Frequency, Duration) Notes Start Date End Date Status Triamterene-HCTZ 37.5-25 MG 1 tab(s) ora lly once a day; Duration: 30 day(s) Active Lisinopril 20 MG 1 tab(s) Orally once a day Active Raloxifene HCl 60 MG 1 tablet Orally Onc e a day; Duration: 30 day(s) 09/21/2024 Active Pantoprazole Sodium 40 MG Take 1 tablet by mouth once daily; Duration: 90 Active Potassium Chloride ER 10 MEQ 1 tablet with food Orally once a day Active Gabapentin 300 MG 1 capsule Orally Two times a day; Duration: 30 day(s) 05/11/2024 Active Vital Signs Weight 240.2 lbs 11/26/2024 Blood pressure systolic 144 mm Hg 11/26/19 25 Blood pressure diastolic 72 mm Hg 025 Heart Rate 94 /min 11/26/2024 Height 61.50 in 11/26/2024 BMI 44.65 kg/m2 11/26/2024 Encounters Encounter Location Date Provider Diagnosis [facility] [address] [facility] [address] [place] [id number] 11/26/2024 Les Avilez Excessive wax in rig ht ear H61.21 Assessments Encounter Date Diagnosis (ICD Code) Assessment Notes Treatment Notes Treatment Clinical Notes Section Notes 11/26/2024 Excessive wax in right ear (ICD-10 - H61.21) Plan Of Treatment Next Appt Details Follow Up: prn, Reason: Procedure Notes * Category Sub-Category Detail Notes Irrigation Of Ears Procedure Ear prepped b y soaking with H2O2, Flushed with peroxide and warm water, Ears irrigated free of most debris Location Right Progress Notes * ELDA ZAMAN GDOB:1955 (69 yo F)Acc No.[id number]:11/26/2024 Progress Notes Patient: ELDA SEO Provider: Edwige Avilez M.D. :1955 A ge:69 Y S ex:Female Date:11/26/2024 Address:[address] [place] [address], [place], [id number] Subjective: * Chief Complaints: * 1 . Lost hearing in the right ear. * HPI: E NT/respiratory: 69 year old female presents with c/o Hearing Loss P t complains of hearing loss in rt ear. Pt states this happened last Saturday. Pt denies pain and/or ear feeling stopped up. Pt states she bought OTC ear drops but hearing has not returned. * ROS: D ERMATOLOGY: no R dann. n o H eleazar. G ASTROENTEROLOGY: no N ausea. n o V omiting. U ROLOGY: no D ifficulty urinating. n o B lood in urine. * Medical History: H ypertension, Moderna covid vaccine x2 Dec 2020. * Surgical History: H ysterectomy, abdominal , Cholecystectomy , Root Canal , Colonoscopy 07/09/2016, Dental Implants . * Hospitalization/Major Diagno stic Procedure: D [...] tab(s) orally once a day , Taking Lisinopril 20 MG Tablet 1 tab(s) Orally once a day , Taking Raloxifene HCl 60 MG Tablet 1 tablet Orally Once a day , Taking Pantoprazole Sodium 40 MG Tablet Delayed Release Take 1 tablet by mouth once daily , Medication List reviewed and reconciled with the patient * Allergies: S ulfa Antibiotics. Objective: * Vitals: W t:240.2, Temp:97.8, BP:144/72, HR:94, Nurse:joanie, Ht: 61.50, BMI:44.65. * Examination: E NT/Respiratory: General Appearance: N AD. E ars: l eft canal and TM normal, right canal obstructed by cerumen. Assessment: * Assessment: 1. E xcessive wax in right ear - H61.21 (Primary) Plan: * Treatment: * Procedures: I rrigation Of Ears: Procedure E ar prepped by soaking with H2O2, Flushed with peroxide and warm water, Ears irrigated free of most debris. L ocation R ight. ? * Procedure Codes: 6 9210 EAR IRRIGATION * Follow Up: p rn * Images: Billing Information: * Visit Code: * Procedure Codes: 41966 EAR IRRIGATION. * Electronic signature of Katherine Avilez MD on 05/31/2025 at 11:36 AM EDT Sign off status: Pending * Provider: Edwige Avilez M.D. Date: 0 11/26/2024 Generated for Eyal leslie/Prakash/Av on: 0 05/31/2025 11:36 AM EDT History and Physical Notes * HPI (History of Present Illness) Category Sub-Category Detail Notes Category Not es ENT/respiratory Hearing Loss Pt complains of hearing loss in rt ear. Pt states this happened last Saturday. Pt denies pain and/or ear feeling stopped up. Pt states she bought OTC ear drops but hearing has not returned Examination Category Sub-Category Detail Notes Category Not es ENT/Respiratory Ears: left canal and T M normal, right canal obstructed by cerumen General Appearance: NAD
--- OUTSIDE RECORDS SUMMARY | 2025-05-06 09:45 | XMS_ITS ---
Author Organization [facility] Address [address] [place] [phone] Care Team Providers Care Surgical Oncologist Name Role Phone Terrance Avilezian Primary Care Provider Aston Mathew Unavailable [phone] Allergies Allergen (clinical drug ingredient) Drug/Non Drug Allergy documented on EMR Reaction Allergy Type Onset Date Status Substance with sulfonamide structure and antibacterial mechanism of action (substance) Sulfa Antibiotics Unknown Drug Allergy Active Results Component Value Reference Range Notes P-Comprehensive Metabolic Pa vaibhav (CMP) Reviewed date:05/25/2025 03:51:59 PM Interpretation:Normal Performing Lab: Notes/Report: Test performed by [facility], [facility] [address] [place] [address] , [address], [place] [address] Shay Davalos MD, Rfid Manager CLIA: [id number] Sodium 139 135-145 mmol/L Potassium 4.5 3.5-5.3 mmol/L Chloride 104 97-108 mmol/L CO2 22 22-32 mmol/L Glucose 86 65-99 mg/dL BUN 14 8-23 mg/dL Creatinine 0.70 0.50-1.00 mg/dL Calcium 9.7 8.6-10.4 mg/dL eGFR by Creatinine 92 >59 mL/min/1.73m2 Protein 7.0 6.0-8.3 g/dL Albumin 4.3 3.5-5.3 g/dL Alkaline Phosphatase 110 35-121 IU/L ALT (SGPT) 24 <5-47 IU/L AST (SGOT) 30 <5-40 IU/L Bilirubin, Total 0.3 <0.2-1.2 mg/dL A/G Ratio 1.6 1.1-2.5 REASON FOR VISIT follow up on Holter and EKG results, Needs labs & Prevnar vaccine Medications Medication SIG (Take, Route, Frequency, Duration) Notes Start Date End Date Status Triamterene-HCTZ 37.5-25 MG 1 tab(s) orally once a day Active Raloxifene HCl 60 MG 1 tablet Orally Onc e a day; Duration: 30 day(s) Active Potassium Chloride ER 10 MEQ 1 tablet with food Orally once a day Not-Taking Pantoprazole Sodium 40 MG Take 1 tablet by mouth once daily; Duration: 90 Active Gabapentin 300 MG 1 capsule Orally Two times a day; Duration: 30 day(s) 05/11/2024 Not-Taking Lisinopril 20 MG 1 tab(s) Orally once a day Active Problems Problem Type SNOMED Code ICD Code Onset Dates Problem Status W/U Status Risk Notes Problem Hyperkalemia (35546923) Hyperkalemia (E87.5) Active confirmed Vital Signs Weight 232.0 lbs 05/06/2025 Blood pressure systolic 170 mm Hg 05/06/20 25 Blood pressure diastolic 80 mm Hg 025 Heart Rate 78 /min 05/06/2025 Height 61.50 in 05/06/2025 BMI 43.12 kg/m2 05/06/2025 Encounters Encounter Location Date Provider Diagnosis [facility] [address] [phone] 05/06/2025 Aston Mathew Ectopic beats I49.49 ; Essential hypertension I10 ; BMI 40.0-44.9, adult Z68.41 and Hyperkalemia E87.5 Assessments Encounter Date Diagnosis (ICD Code) Assessment Notes Treatment Notes Treatment Clinical Notes Section Notes 05/06/2025 Ectopic beats (ICD-10 - I49.49) 05/06/2025 Essential hypertension (ICD-10 - I10) 05/06/2025 BMI 40.0-44.9, adult (ICD-10 - Z68.41) 05/06/2025 Hyperkalemia (ICD-10 - E87.5) Plan Of Treatment Medication Medication Name Sig Start Date Stop Date Notes Triamterene-HCTZ 37.5-25 MG 1 tab(s) orally once a day Pending Test Test Name Order Date Holter - 7 day 05/06/2025 Next Appt Details Follow Up: 4 Weeks, Reason: Progress Notes * ELDA ZAMAN GDOB:1955 (69 yo F)Acc No.[id number]:05/06/2025 Progress Notes Patient: ELDA SEO Provider: Aston Mathew M.D. :1955 A ge:69 Y S ex:Female Date:05/06/2025 Address:[place], [id number] Pcp:Les Avilez Subjective: * Chief Complaints: * 1 . follow up on Holter and EKG results. 2. Needs labs & Prevnar vaccine. * HPI: C ardiology: The patient is here for a check up on Hypertension and discuss holter results. Pt states she has not had any chest pain nor shortness of breath. Holter showed artifact. SVT 7 day Holter suggested. Denies : Chest Pain. D enies : Short of Breath. D enies : Dizziness. D enies : Palpitations. * ROS: D ERMATOLOGY: no R dann. [...] tab(s) Orally once a day , Taking Pantoprazole Sodium 40 MG Tablet Delayed Release Take 1 tablet by mouth once daily , Taking Triamterene-HCTZ 37.5-25 MG Tablet 1 tab(s) orally once a day , Taking Raloxifene HCl 60 MG Tablet 1 tablet Orally Once a day , Not-Taking Potassium Chloride ER 10 MEQ Tablet Extended Release 1 tablet with food Orally once a day , Not-Taking Gabapentin 300 MG Capsule 1 capsule Orally Two times a day , Medication List reviewed and reconciled with the patient * Allergies: S ulfa Antibiotics. Objective: * Vitals: W t: 232.0, Temp: 98.0, BP: 170/80, HR: 78, O2 Sat: 99% on RA, Nurse: KELL, Ht: 61.50, BMI:43.12. * Examination: G eneral Examination: General Appearance: [...] leg edema. Assessment: * Assessment: 1. E ctopic beats - I49.49 (Primary) 2 . E ssential hypertension - I10 3 . B [place] 40.0-44.9, adult - Z68.41 4 . H yperkalemia - E87.5? Plan: * Treatment: 2.?Essential hypertension? Refill Triamterene-HCTZ Tablet, 37.5-25 MG, 1 tab(s), orally, once a day, 30, Refills 5.?LAB: P-Comprehensive Metabolic Panel (CMP) (Collection Date & Time - 05/06/2025 01:58 PM)?Normal* Value Reference Range A /G Ratio 1.6 1.1-2.5 - * A lbumin 4.3 3.5-5.3 - g/dL * A lkaline Phosphatase 110 35-121 - IU/L * A LT (SGPT) 24 <5-47 - IU/L * A ST (SGOT) 30 <5-40 - IU/L * B ilirubin, Total 0.3 <0.2-1.2 - mg/dL * B UN 14 8-23 - mg/dL * C alcium 9.7 8.6-10.4 - mg/dL * C hloride 104 97-108 - mmol/L * C O2 22 22-32 - mmol/L * C reatinine 0.70 0.50-1.00 - mg/dL * G lucose 86 65-99 - mg/dL * P otassium 4.5 3.5-5.3 - mmol/L * S odium 139 135-145 - mmol/L * P rotein 7.0 6.0-8.3 - g/dL * e GFR by Creatinine 92 >59 - mL/min/1.73m2 * Ivy Crowder 05/25/2025 03: 51:50 PM EDT > Patient informed of normal results. * Procedure Codes: 1 036F TOBACCO NON-USER * Follow Up: 4 Weeks * Images: Billing Information: * Visit Code: 61248 Office Visit, Est Pt., Level 3. * Procedure Codes: 1036F TOBACCO NON-USER. * Electronic signature of Aston Mathew MD on 05/31/2025 at 11:35 AM EDT Sign off status: Pending * Provider: Aston Mathew M.D. Date: 0 05/06/2025 Generated for Jordani anuj/Prakash/eTransmitting on: 0 05/31/2025 11:35 AM EDT History and Physical Notes * [...]
--- OUTSIDE RECORDS SUMMARY | 2025-05-31 11:36 | XMS_ITS | Patient Health Record ---
[facility] Address [address] [place] [id number] Care Team Providers Care Cooking Teacher Name Role Phone Les Avilez Primary Care Provider Aston Mathew Unavailable [phone] Allergies Allergen (clinical drug ingredient) Drug/Non Drug Allergy documented on EMR Reaction Allergy Type Onset Date Status Substance with sulfonamide structure and antibacterial mechanism of action (substance) Sulfa Antibiotics Unknown Drug Allergy Active Results Component Value Reference Range Notes P-Comprehensive Metabolic Pa vaibhav (CMP) Reviewed date:05/25/2025 03:51:59 PM Interpretation:Normal Performing Lab: Notes/Report: Test performed by [facility] [address] [place] [address] , [address], [place] [address] Shay Davalos MD, Ladle Operator CLIA: [id number] Sodium 139 135-145 mmol/L Potassium 4.5 3.5-5.3 [...] <0.2-1.2 mg/dL A/G Ratio 1.6 1.1-2.5 Holter Monitor- 48 hour Reviewed date:05/04/2025 03:33:35 PM Interpretation: Performing Lab: Notes/Report: EKG Reviewed date:05/04/2025 03:33:35 PM Interpretation: Performing Lab: Notes/Report: P-Basic Metabolic Panel (BMP ) Reviewed date:05/04/2025 03:33:35 PM Interpretation:K+ 5.5 Performing Lab: Notes/Report: Test performed by [facility] [address] [place] [address] , [address], [place] [address] Shay Davalos MD, Ladle Operator CLIA: [id number] Sodium 138 135-145 mmol/L Potassium 5.5 3.5-5.3 mmol/L Chloride 103 97-108 mmol/L CO2 23 22-32 mmol/L Glucose 87 65-99 mg/dL BUN 12 8-23 mg/dL Creatinine 0.69 0.50-1.00 mg/dL Calcium 9.5 8.6-10.4 mg/dL eGFR by Creatinine 92 >59 mL/min/1.73m2 P-Comprehensive Metabolic Pa vaibhav (CMP) Reviewed date:08/24/2024 11:12:04 AM Interpretation:K+ 6, gluc 108 Performing Lab: Notes/Report: Test performed by [facility] [address] [place] [address] , [address], [place] [address] Shay Davalos MD, Ladle Operator CLIA: [id number] Sodium 140 135-145 mmol/L Potassium 6.0 3.5-5.3 [...] Interpretation:Normal Performing Lab: Notes/Report: Test performed by [facility] [address] [place] [address] , [address], [place] [address] Shay Davalos MD, Ladle Operator CLIA: [id number] Lipase 23.4 13.0-60.0 u/L DEXA Hip and Spine Reviewed date:09/10/2024 10:48:27 AM Interpretation:osteopenia of l-spine and right femoral neck Performing Lab: Notes/Report: osteopenia of l-spine and right femoral neck Dexa results osteopenia of l-spin e and right femoral neck Mammogram Reviewed date:09/16/2024 04:33:35 PM Interpretation:Negative, annual f/u Performing Lab: Notes/Report: Negative, annual f/u result Negative, annual f/u P-Comprehensive Metabolic Pa vaibhav (CMP) Reviewed date:11/23/2024 01:18:49 PM Interpretation:Normal Performing Lab: Notes/Report: Test performed by [facility] [address] [place] [address] , [address], [place] [address] Shay Davalos MD, Ladle Operator CLIA: [id number] Sodium 139 135-145 mmol/L Potassium 4.4 3.5-5.3 [...] 0.3 <0.2-1.2 mg/dL A/G Ratio 1.5 1.1-2.5 H-CBC Reviewed date:07/01/2024 09:35:21 AM Interpretation: Performing Lab: Notes/Report: WBC 17.0 4.8-10.8 K/mm3 RBC 3.90 4.20-5.40 M/mm3 HGB 11.7 12.2-16.2 g/dL HCT 36.5 37.0-47.0 % MCV 93.5 81-99 fl MCH 29.8 27.0-31.2 pg MCHC 31.9 31.8-35.4 g/dL RDW 13.9 11.5-17.5 % PLT 323 142-424 K/mm3 MPV 8.7 7.4-10.4 fl NE% 89.6 37.0-80.0 % LY% 4.8 10-50 % MO% 5.1 1.7-9.3 % EO% 0.4 0.1-12.0 % BA% 0.2 0.1-2.0 % NE# 15.2 1.8-7.8 K/mm3 LY# 0.8 0.7-4.5 K/mm3 MO# 0.9 0.1-1.0 K/mm3 EO# 0.1 0.0-0.4 K/mm3 BA# 0.0 0-0.2 K/mm3 H-DIFF Reviewed date:07/01/2024 09:35:21 AM Interpretation: Performing Lab: Notes/Report: ALTA MANUAL DIFFERENTIAL MANUAL DIFF TCC 100 NEUT%M 88 42-76 % LYMPH%M 8 10-50 % MONO%M 4 2-9 % PLTE Normal RM Normal H-Lipid Panel Reviewed date:07/01/2024 08:26:26 AM Interpretation: Performing Lab: Notes/Report: TRIG 66 30-150 mg/dl CHOL 134 140-200 mg/dl DLDL 43.11 100-129 mg/dL VLDL 13 0-40 mg/dL HDL 47 40-60 mg/dl CHLHDL 2.9 1-3.5 H-CMP Reviewed date:07/01/2024 08:26:26 AM Interpretation: Performing Lab: Notes/Report: NA 128 136-145 mmol/L K 4.3 3.5-5.1 mmoL/L CL 99 98-107 mmol/L CO2 25 22.0-30.0 mmol/L GAP 8.3 5-15 mEq/L BUN 9 7-17 mg/dl Delta: 7 on 06/30/24 CREATT 0.70 0.52-1.04 mg/dl CRCLE 19 50-200 mL/min GFRAA 100 >60 ML/MIN EGFR 83 >60 ml/min GLU 81 74-100 mg/dl CA 8.1 8.4-10.2 mg/dl BILIT 0.9 0.2-1.3 mg/dl AST 52 14-36 U/L Delta: 125 on 06/30/24 ALT 72 12-78 U/L Delta: 118 on 06/30/24 TP 6.1 6.3-8.2 g/dl ALB 3.3 3.5-5.0 g/dl Delta: 3.9 on 06/30/24 GLOB 2.8 1.3-3.2 g/dL AGRATIO 1.2 1.1-1.8 ALP 125 38-126 U/L H-Amylase Reviewed date:07/01/2024 08:26:26 AM Interpretation: Performing Lab: Notes/Report: MARICRUZ 59 30-110 U/L H-Lipase Reviewed date:07/01/2024 08:26:26 AM Interpretation: Performing Lab: Notes/Report: LIP 136 23-300 U/L H-CBC Reviewed date:07/02/2024 10:18:39 AM Interpretation: Performing Lab: Notes/Report: WBC 10.6 4.8-10.8 K/mm3 Delta: 17.0 o n 07/01/24 RBC 3.75 4.20-5.40 M/mm3 HGB 11.5 12.2-16.2 g/dL HCT 34.5 37.0-47.0 % MCV 92.2 81-99 fl MCH 30.6 27.0-31.2 pg MCHC 33.2 31.8-35.4 g/dL RDW 13.9 11.5-17.5 % PLT 349 142-424 K/mm3 MPV 8.0 7.4-10.4 fl NE% 83.5 37.0-80.0 % LY% 8.5 10-50 % MO% 5.8 1.7-9.3 % EO% 1.9 0.1-12.0 % BA% 0.3 0.1-2.0 % NE# 8.9 1.8-7.8 K/mm3 LY# 0.9 0.7-4.5 K/mm3 MO# 0.6 0.1-1.0 K/mm3 EO# 0.2 0.0-0.4 K/mm3 BA# 0.0 0-0.2 K/mm3 H-CMP Reviewed date:07/02/2024 10:18:39 AM Interpretation: Performing Lab: Notes/Report: NA 134 136-145 mmol/L K 3.7 3.5-5.1 mmoL/L CL 102 98-107 mmol/L CO2 28 22.0-30.0 mmol/L GAP 7.7 5-15 mEq/L BUN 7 7-17 mg/dl CREATT 0.70 0.52-1.04 mg/dl CRCLE 40 50-200 mL/min GFRAA 100 >60 ML/MIN EGFR 83 >60 ml/min GLU 92 74-100 mg/dl CA 8.2 8.4-10.2 mg/dl BILIT 0.9 0.2-1.3 mg/dl AST 31 14-36 U/L Delta: 52 on 07/01/24 ALT 51 12-78 U/L Delta: 72 on 07/01/24 TP 6.2 6.3-8.2 g/dl ALB 3.3 3.5-5.0 g/dl GLOB 2.9 1.3-3.2 g/dL AGRATIO 1.1 1.1-1.8 ALP 125 38-126 U/L H-Amylase Reviewed date:07/02/2024 10:18:39 AM Interpretation: Performing Lab: Notes/Report: MARICRUZ 43 30-110 U/L H-Lipase Reviewed date:07/02/2024 10:18:39 AM Interpretation: Performing Lab: Notes/Report: LIP 53 23-300 U/L Reason For Referral Reason history pancreatitis Diagnosis 1 Acute pancreatitis w ithout infection or necrosis, unspecified pancreatitis type (K85.90) Referral Organization [facility] Referring Provider First Name Aston Agarwal Referring Provider Last Name Quin[place] Referring Provider Speciality Family Pra ctice Referred Provider JLUIS SANDERS Referred Provider Specialty Gastroentero logy General Notes Mojgan De Jesus 08/21/20 24 8:48:36 AM > faxed to Dr. Sanders office Referral Priority Routine Medications Medication SIG (Take, Route, Frequency, Duration) Notes Start Date End Date Status Lisinopril 20 MG 1 tab(s) Orally once a day Active Triamterene-HCTZ 37.5-25 MG 1 tab(s) orally [...] a day; Duration: 30 day(s) 05/11/2024 Not-Taking Immunizations Vaccine Route Administration Date Status Comme nts COVID 19 Moderna Unknown 12/14/2020 Administered COVID 19 Moderna Unknown 01/13/2021 Administered Fluzone PF Quad (6-35 months) Unknown 09/19/2021 Admini stered Fluzone Quad (6months&older) Unknown 09/28/2019 Adminis tered Hepatitis A (adult) Unknown 09/25/2018 Administered Hepatitis A (adult) Unknown 04/10/2019 Administered Prevnar (PCV20) Unknown 07/02/2023 Administered Shingrix Unknown 07/02/2023 Administered Tetanus Tdap-Adacel (over 7yrs) Unknown 07/02/2023 Admi nistered xFluzone High Dose-private (65yr&older) Unknown 09/25/2018 Administered Problems Problem Type SNOMED Code ICD Code Onset Dates Problem Status W/U Status Risk Notes Problem Essential hypertension (90042066) Essential (primary) hypertension (I10) Active confirmed Problem Hyperkalemia (74866831) Hyperkalemia (E87.5) Active confirmed Problem Pain of right shoulder region (finding) (0868409566) Pain in right shoulder (M25.511) Active confirmed Problem Hypertension (99018714) HTN (hypertension) (I10) Active confirmed Problem Vitamin D deficiency (79352061) Vitamin D deficiency (E55.9) Active confirmed Problem Essential hypertension (35810867) Essential hypertension (I10) Active confirmed Problem Chronic pain (74930464) Other chronic pain (G89.29) Active confirmed Problem Body mass index 40+ - morbidly obese (179351593) BMI 40.0-44.9, adult (Z68.41) Active confirmed Problem Cervical spondylosis without myelopathy (051359941) Osteoarthritis of spine with radiculopathy, cervical region (M47.22) Active confirmed Problem Band neutrophil count above reference range (227137288) Bandemia without diagnosis of specific infection (D72.825) Active confirmed Problem Acute pancreatitis (425604106) Idiopathic acute pancreatitis without infection or necrosis (K85.00) Active confirmed Problem Fibrocystic breast changes (88052141) Fibrocystic breast disease (FCBD), unspecified laterality (N60.19) Active confirmed Problem Hypertensive heart disease without congestive heart failure (10075548) Hypertensive heart disease, unspecified whether heart failure present (I11.9) Active confirmed Problem Ectopic beats (01030255) Ectopic beats (I49.49) Active confirmed Problem Shoulder joint pain (063164909) Shoulder pain, unspecified chronicity, unspecified laterality (M25.519) Active confirmed Vital Signs Heart Rate 78 /min 05/06/2025 Blood pressure diastolic 80 mm Hg 05/06/2025 Height 61.50 in 05/06/2025 Blood pressure systolic 170 mm Hg 05/06/2025 Weight 232.0 lbs 05/06/2025 BMI 43.12 kg/m2 05/06/2025 Encounters Encounter Location Date Provider Diagnosis [facility] [address] [place] [id number] 08/20/2024 Aston Mathew Acute pancreatitis without infection or necrosis, unspecified pancreatitis type K85.90 ; HTN (hypertension) I10 ; Pain in right shoulder M25.511 ; Osteopenia, unspecified location M85.80 and Fibrocystic breast disease (FCBD), unspecified laterality N60.19 [facility] [address] [place], [place] [phone] 11/19/2024 Aston Mathew Essential hypertensi on I10 ; Idiopathic acute pancreatitis without infection or necrosis K85.00 ; Osteopenia of multiple sites M85.89 and Hyperkalemia E87.5 [facility] [address] [place], [place] [id number] 11/26/2024 Les [place] Excessive wax in rig ht ear H61.21 [facility] [address] [place], [place] [id number] 03/08/2025 Asotn Mathew Essential hypertensi on I10 ; Ectopic beats I49.49 and BMI 40.0-44.9, adult Z68.41 [facility] [address] [place], [place] [id number] 05/06/2025 Aston Mathew Ectopic beats I49.49 ; Essential hypertension I10 ; BMI 40.0-44.9, adult Z68.41 and Hyperkalemia E87.5 [facility] [address] [place], [place] [id number] 06/25/2024 [place] [facility] [address] [place], [place] [id number] 08/24/2024 Aston Mathew [facility] [address] [place], [place] [id number] 09/10/2024 Aston Mathew [facility] [address] [place], [place] [id number] 04/09/2025 Aston Mathew Assessments Encounter Date Diagnosis (ICD Code) Assessment Notes Treatment Notes Treatment Clinical Notes Section Notes 08/20/2024 HTN (hypertension) (ICD-10 - I10) 08/20/2024 Acute pancreatitis without infection or necrosis, unspecified pancreatitis type (ICD-10 - K85.90) 11/19/2024 Essential hypertension (ICD-10 - I10) 11/19/2024 Idiopathic acute pancreatitis without infection or necrosis (ICD-10 - K85.00) 11/26/2024 Excessive wax in right ear (ICD-10 - H61.21) 03/08/2025 Essential hypertension (ICD-10 - I10) 03/08/2025 Ectopic beats (ICD-10 - I49.49) 05/06/2025 Ectopic beats (ICD-10 - I49.49) 05/06/2025 Essential hypertension (ICD-10 - I10) 05/06/2025 BMI 40.0-44.9, adult (ICD-10 - Z68.41) 03/08/2025 BMI 40.0-44.9, adult (ICD-10 - Z68.41) 11/19/2024 Osteopenia of multiple sites (ICD-10 - M85.89) [employer] [facility] 08/20/2024 Pain in right shoulder (ICD-10 - M25.511) 11/19/2024 Hyperkalemia (ICD-10 - E87.5) 08/20/2024 Osteopenia, unspecified location (ICD-10 - M85.80) 05/06/2025 Hyperkalemia (ICD-10 - E87.5) 08/20/2024 Fibrocystic breast disease (FCBD), unspecified laterality (ICD-10 - N60.19) Plan Of Treatment Pending Test Test Name Order Date MRI : Spine, Cervical with and without c ontrast 04/27/2024 Holter - 7 day 05/06/2025 Insurance Providers Payer Name Payer Address Payer Phone Subscriber Number Group Number Insured Name Patient Relationship to Insured Coverage Start Date Coverage End Date [employer] [address] [place] [address] [id number] ELDA ZAMAN Self - patient is the insured MEDICARE PART B [address] [address] [place] [address] [id number] ELDA ZAMAN Self - patient is the insured Medical (General) History Medical History History ICD Code Hypertension Moderna covid vaccine x2 Dec 2020 Surgical History Surgery Date(Month/Year) Hysterectomy, abdominal Cholecystectomy Root Canal Colonoscopy 07/09/2016 Dental Implants Hospitalization History Reason Date(Month/Year)
== END 2025-05-31 23:59 | disposition home or self-care (01) ==
LOC: RT 11:17
PROVIDERS: PCP Family Medicine; Visit Provider Family Medicine
DX: I49.1 Atrial premature depolarization (principal); I47.19 Other supraventricular tachycardia; I49.3 Ventricular premature depolarization; I49.49 Other premature depolarization
CPT/HCPCS: 93270

== ENCOUNTER 2025-09-10 14:56 | Outpatient (CLI) | payer BC, SELFPAY ==
--- OUTSIDE RECORDS SUMMARY | 2024-08-06 06:00 | XMS_ITS ---
Author Organization [facility] Address [address] [facility] [address] [place] [id number] Care Team Providers Care Remnants Cutter Name Role Phone Les Avilez Primary Care Provider Allergies Allergen (clinical drug ingredient) Drug/Non Drug Allergy documented on EMR Reaction Allergy Type Onset Date Status Substance with sulfonamide structure and antibacterial mechanism of action (substance) Sulfa Antibiotics Unknown Drug Allergy Active REASON FOR VISIT follow up [facility] discarge Encounters Encounter Location Date Provider Diagnosis [place] [address] [facility] [address] [place] [id number] 08/06/2024 Les Avilez Plan Of Treatment Next Appt Details Provider Name:Aston Agarwal Katerina er, 10/25/2025 03:30:00 PM, [address] [facility], [address], [place], [id number], Progress Notes * LYNDSEY ELDA GDOB:1955 (70 yo F)Acc No.[id number]:08/06/2024 Progress Notes Patient: ELDA SEO Provider: Edwige Avilez M.D. :1955 A ge:68 Y S ex:Female Date:08/06/2024 Address:[id number] Subjective: * Chief Complaints: * 1 . follow up [facility] discarge. * ROS: D ERMATOLOGY: no R dann. n o H eleazar. G ASTROENTEROLOGY: no N ausea. n o V omiting. U ROLOGY: no D ifficulty urinating. n o B lood in urine. * Medical History: H ypertension, Moderna covid vaccine x2 Dec 2020. * Surgical History: h ysterectomy, abdominal , cholecystectomy , root canal , colonoscopy 07/09/2016, dental implants . * Hospitalization/Major Diagno stic Procedure: D enies Past Hospitalization. * Family History: F ather: alive, diabetes, Heart Disease, Kidney problems. M other: alive, Thyroid problems, Diverticulitis. 3 sister(s) . . * Social History: C URRENT TOBACCO USE S moking Status: Patient does NOT smoke. C affeine: yes, frequency: Occasionally. Exercise: no. Past smoking status: no, Smoking status: Does not smoke. Alcohol: Type: , Frequency: Socially ,Years: , Determination:. * Allergies: S ulfa Antibiotics. Objective: * Vitals: Assessment: Plan: * Treatment: * Images: Billing Information: * Visit Code: * Procedure Codes: * Electronic signature of Katherine Avilez MD on 09/10/2025 at 02:59 PM EDT Sign off status: Pending * Provider: Edwige Avilez M.D. Date: 0 08/06/2024 Generated for Eyal leslie/Prakash/Amishaitting on: 02:59 PM EDT
--- OUTSIDE RECORDS SUMMARY | 2024-08-20 11:30 | XMS_ITS ---
Author Organization [facility] Address [address] [place] [id number] Care Team Providers Care Floor Inspector Name Role Phone Terrance Avilezian Primary Care Provider [phone] Aston Mathew Unavailable [phone] Allergies Allergen (clinical drug ingredient) Drug/Non Drug Allergy documented on EMR Reaction Allergy Type Onset Date Status Substance with sulfonamide structure and antibacterial mechanism of action (substance) Sulfa Antibiotics Unknown Drug Allergy Active Results Component Value Reference Range Notes P-Comprehensive Metabolic Pa vaibhav (CMP) Reviewed date:08/24/2024 11:12:04 AM Interpretation:K+ 6, gluc 108 Performing Lab: Notes/Report: Test performed by [facility] [address] [place] [address] , [address], [place] [address] Shay Davalos MD, Biochemistry Technologist CLIA: [id number] Sodium 140 135-145 mmol/L Potassium 6.0 3.5-5.3 mmol/L Chloride 104 97-108 mmol/L CO2 23 22-32 mmol/L Glucose 108 65-99 mg/dL BUN 20 8-23 mg/dL Creatinine 0.81 0.50-1.00 mg/dL Calcium 9.9 8.6-10.4 mg/dL eGFR by Creatinine 78 >59 mL/min/1.73m2 Protein 6.8 6.0-8.3 g/dL Albumin 4.3 3.5-5.3 g/dL Alkaline Phosphatase 105 35-121 IU/L ALT (SGPT) 18 <5-47 IU/L AST (SGOT) 22 <5-40 IU/L Bilirubin, Total 0.2 <0.2-1.2 mg/dL A/G Ratio 1.7 1.1-2.5 P-Lipase Reviewed date:08/24/2024 11:12:04 AM Interpretation:Normal Performing Lab: Notes/Report: Test performed by [facility] [address] , [address], [place] [address] Shay Davalos MD, Biochemistry Technologist CLIA: [id number] Lipase 23.4 13.0-60.0 u/L DEXA Hip and Spine Reviewed date:09/10/2024 10:48:27 AM Interpretation:osteopenia of l-spine and right femoral neck Performing Lab: Notes/Report: osteopenia of l-spine and right femoral neck Dexa results osteopenia of l-spin e and right femoral neck Mammogram Reviewed date:09/16/2024 04:33:35 PM Interpretation:Negative, annual f/u Performing Lab: Notes/Report: Negative, annual f/u result Negative, annual f/u Reason For Referral Reason history pancreatitis Diagnosis 1 Acute pancreatitis w ithout infection or necrosis, unspecified pancreatitis type (K85.90) [facility] Referring Provider First Name Aston Agarwal Referring Provider Last Name Quincy Referring Provider Speciality Family Adelina diasice Referred Provider JLUIS WADE Referred Provider Specialty Gastroentero logy General Notes Mojgan De Jesus 08/21/20 24 8:48:36 AM > faxed to Dr. Wade office Referral Priority Routine REASON FOR VISIT 3 month f/u, Needs mammogram, bone density screening, & flu vaccine Medications Medication SIG (Take, Route, Frequency, Duration) Notes Start Date End Date Status Gabapentin 300 MG 1 capsule Orally Two times a day; Duration: 30 day(s) 05/11/2024 Active Triamterene-HCTZ 37.5-25 MG 1 tab(s) ora lly once a day; Duration: 30 day(s) Active Pantoprazole Sodium 40 MG Take 1 tablet by mouth once daily; Duration: 90 Active Lisinopril 20 MG 1 tab(s) Orally once a day Active Potassium Chloride ER 10 MEQ 1 tablet with food Orally once a day Active Problems Problem Type SNOMED Code ICD Code Onset Dates Problem Status W/U Status Risk Notes Problem Fibrocystic breast changes (77979220) Fibrocystic breast disease (FCBD), unspecified laterality (N60.19) Active confirmed Vital Signs Weight 237.2 lbs 08/20/2024 Blood pressure systolic 152 mm Hg 08/20/20 24 Blood pressure diastolic 80 mm Hg 024 Heart Rate 76 /min 08/20/2024 Height 61.50 in 08/20/2024 BMI 44.09 kg/m2 08/20/2024 Encounters Encounter Location Date Provider Diagnosis [facility] [address] [facility] [address] [facility] [address] [place] [id number] 08/20/2024 Aston Mathew Acute pancreatitis without infection or necrosis, unspecified pancreatitis type K85.90 ; HTN (hypertension) I10 ; Pain in right shoulder M25.511 ; Osteopenia, unspecified location M85.80 and Fibrocystic breast disease (FCBD), unspecified laterality N60.19 Assessments Encounter Date Diagnosis (ICD Code) Assessment Notes Treatment Notes Treatment Clinical Notes Section Notes 08/20/2024 Acute pancreatitis without infection or necrosis, unspecified pancreatitis type (ICD-10 - K85.90) 08/20/2024 HTN (hypertension) (ICD-10 - I10) 08/20/2024 Pain in right shoulder (ICD-10 - M25.511) 08/20/2024 Osteopenia, unspecified location (ICD-10 - M85.80) 08/20/2024 Fibrocystic breast disease (FCBD), unspecified laterality (ICD-10 - N60.19) Plan Of Treatment Referrals Referral Date Details 08/20/2024 08/20/2024, history pancreatitis, JLUIS WADE Next Appt Details Follow Up: 3 Months, Reason: Provider Name:Aston Borges er, 10/25/2025 03:30:00 PM, [address] [facility] [address] [facility], [address], [place], [id number], Progress Notes * ELDA ZAMAN GDOB:1955 (70 yo F)Acc No.[id number]:08/20/2024 Patient: Nacho BOYD ELDA G Provider: Aston Mathew M.D. :1955 A ge:68 Y S ex:Female Date:08/20/2024 Address:[address], [place], [id number] Pcp:Les Avilez Subjective: * Chief Complaints: * 1 . 3 month f/u. 2. Needs mammogram, bone density screening, & flu vaccine. * HPI: C ardiology: The patient is here for a check up on Hypertension. Pt states she is doing better. Pt states she was in [facility] due another bout with pancreatitis. Pt states she has stopped the physical therapy. Pt states the shoulder is doing better. Pt states it does hurt more when she sleeps on it. Pt states the range of motion is better. Denies : Chest Pain. D enies : Short of Breath. D enies : Dizziness. D enies : Palpitations. G astroenterology: Hospitalized 06/29/2024 with pancreatitis, [facility]. 1473 lipase. NPO with IV fluids. Cleared after 3 days. Arm has been better since hospitalization!. * ROS: D ERMATOLOGY: no R dann. [...] implants . * Hospitalization/Major Diagno stic Procedure: s ee above . * Family History: F ather: alive, diabetes, Heart Disease, Kidney problems. M other: alive, Thyroid problems, Diverticulitis. 3 sister(s) . . * Social History: C URRENT TOBACCO USE S moking Status: Patient does NOT smoke. C affeine: yes, frequency: Occasionally. Exercise: no. Past smoking status: no, Smoking status: Does not smoke. Alcohol: Type: , Frequency: Socially ,Years: , Determination:. * Medications: T aking Potassium Chloride ER 10 MEQ Tablet Extended Release 1 tablet with food Orally once a day , Taking Gabapentin 300 MG Capsule 1 capsule Orally Two times a day , Taking Triamterene-HCTZ 37.5-25 MG Tablet 1 tab(s) orally once a day , Taking Pantoprazole Sodium 40 MG Tablet Delayed Release Take 1 tablet by mouth once daily , Taking Lisinopril 20 MG Tablet 1 tab(s) Orally once a day , Medication List reviewed and reconciled with the patient * Allergies: S ulfa Antibiotics. Objective: * Vitals: W t:237.2, Temp:98.2, BP:152/80, HR:76, Nurse:KELL, Ht: 61.50, BMI:44.09. * Examination: G eneral Examination: General Appearance: N AD. H EENT: u nremarkable.?Oral cavity: n o lesions, mucosa moist and WNL, no erythema. N becca: s upple, no lymphadenopathy. C hest: n ormal shape and expansion. H eart: R SR. L ungs: c lear to auscultation. A bdomen: obese, soft and nontender. N eurologic Exam: I ntact, gait normal. S kin: n ormal, no rash. P eripheral pulses: n ormal . B ack:? mild dorsal kyphosis. E xtremities: 2 + leg edema. Assessment: * Assessment: 1. A cute pancreatitis without infection or necrosis, unspecified pancreatitis type - K85.90 (Primary) 2 . H [place] (hypertension) - I10 3 . P ain in right shoulder - M25.511 4 . O steopenia, unspecified location - M85.80 5 . F ibrocystic breast disease (FCBD), unspecified laterality - N60.19 Plan: * Treatment: Value Reference Range A /G Ratio 1.7 1.1-2.5 - * A lbumin 4.3 3.5-5.3 - g/dL * A lkaline Phosphatase 105 35-121 - IU/L * A LT (SGPT) 18 <5-47 - IU/L * A ST (SGOT) 22 <5-40 - IU/L * B ilirubin, Total 0.2 <0.2-1.2 - mg/dL * B UN 20 8-23 - mg/dL * C alcium 9.9 8.6-10.4 - mg/dL * C hloride 104 97-108 - mmol/L * C O2 23 22-32 - mmol/L * C reatinine 0.81 0.50-1.00 - mg/dL * G lucose 108 H 65-99 - mg/dL * P otassium 6.0 H 3.5-5.3 - mmol/L * S odium 140 135-145 - mmol/L * P rotein 6.8 6.0-8.3 - g/dL * e GFR by Creatinine 78 >59 - mL/min/1.73m2 * Mary Ann Mcduffie 08/24/2024 11:11 :53 AM >See phone encounter ?LAB: P-Lipase (Collection Date & Time - 08/21/2024 08:00 AM)?Normal* Value Reference Range L ipase 23.4 13.0-60.0 - u/L * Mary Ann Mcduffie 08/24/2024 11:11 :53 AM >See phone encounter ? Referral To:JLUIS WADE??Gastroenterology ?Reason:history pancreatitis 2.?Osteopenia, unspecified location?Imaging: DEXA Hip and Spine (Performed Date - 09/09/2024)?osteopenia of l- spine and right femoral neck* Value Reference Range D exa results osteopenia of l-spine and right femoral neck * Mojagn De Jesus 08/21/2024 8:55: 26 AM > no auth required; CPT code [id number],Brynn 08/21/2024 9:00:15 AM > faxed to Jennifer Brown 08/24/2024 9:00:10 AM > 09/09 @3pmMary Ann Mcduffie 09/10/2024 10:48:20 AM > , See phone encounter 3.?Fibrocystic breast disease (FCBD), unspecified laterality?Imaging: Mammogram (Performed Date - 09/09/2024)?Negative, annual f/u* Value Reference Range r esult Negative, annual f/u * Mojgan De Jesus 08/21/2024 9:00: 28 AM > faxed to [facility] Jennifer Brown 08/24/2024 9:00:49 AM > 09/09 @3:30pmIvy Crowder 09/16/2024 4:33:29 PM > , Patient informed of normal results. * Follow Up: 3 Months * Images: Billing Information: * Visit Code: 51448 Office Visit, Est Pt., Level 4. * Procedure Codes: * Electronic signature of Aston Mathew MD on 09/10/2025 at 02:59 PM EDT Sign off status: Pending * Provider: Aston Mathew M.D. Date: 0 08/20/2024 Generated for Printi anuj/Prakash/eTransmitting on: 1 02:59 PM EDT History and Physical Notes * HPI (History of Present Illness) Category Sub-Category Detail Notes Category Not es Cardiology Short of Breath Chest Pain Palpitations Dizziness Examination Category Sub-Category Detail Notes Category Not es General Examination HEENT: unremarkable Heart: RSR Lungs: clear to auscultatio n Abdomen: obese, soft and nont ashley Extremities: 2+ leg edema General Appearance: NAD Skin: normal, no rash Neurologic Exam: Intact, gait normal Neck: supple, no lymphaden opathy Oral cavity: no lesions, mucosa m oist and WNL, no erythema Peripheral pulses: normal Back: mild dorsal kyphosis Chest: normal shape and exp ansion Consultation Request Notes Referral Date Referring Provider Referred Provider Not es 08/20/2024 Aston Mathew EARL history p ancreatitis
--- OUTSIDE RECORDS SUMMARY | 2024-11-19 09:45 | XMS_ITS ---
Author Organization [facility] Address [address] [place] [id number] Care Team Providers Care Photoresist Contact Printer Name Role Phone Les Avilez Primary Care Provider Aston Mathew Unavailable [phone] Allergies Allergen (clinical drug ingredient) Drug/Non Drug Allergy documented on EMR Reaction Allergy Type Onset Date Status Substance with sulfonamide structure and antibacterial mechanism of action (substance) Sulfa Antibiotics Unknown Drug Allergy Active Results Component Value Reference Range Notes P-Comprehensive Metabolic Pa vaibhav (CMP) Reviewed date:11/23/2024 01:18:49 PM Interpretation:Normal Performing Lab: Notes/Report: Test performed by [facility] [address] [place] [address] , [address], [place] [address] Shay Davalos MD, Transition Mgr Rn CLIA: [id number] Sodium 139 135-145 mmol/L Potassium 4.4 3.5-5.3 mmol/L Chloride 103 97-108 mmol/L CO2 27 22-32 mmol/L Glucose 90 65-99 mg/dL BUN 12 8-23 mg/dL Creatinine 0.67 0.50-1.00 mg/dL Calcium 9.4 8.6-10.4 mg/dL eGFR by Creatinine 93 >59 mL/min/1.73m2 Protein 6.7 6.0-8.3 g/dL Albumin 4.0 3.5-5.3 g/dL Alkaline Phosphatase 121 35-121 IU/L ALT (SGPT) 33 <5-47 IU/L AST (SGOT) 29 <5-40 IU/L Bilirubin, Total 0.3 <0.2-1.2 mg/dL A/G Ratio 1.5 1.1-2.5 REASON FOR VISIT 3 month F/U Medications Medication SIG (Take, Route, Frequency, Duration) Notes Start Date End Date Status Potassium Chloride ER 10 MEQ 1 tablet with food Orally once a day Active Raloxifene HCl 60 MG 1 tablet Orally Onc e a day; Duration: 30 day(s) 09/21/2024 Active Pantoprazole Sodium 40 MG Take 1 tablet by mouth once daily; Duration: 90 Active Triamterene-HCTZ 37.5-25 MG 1 tab(s) ora lly once a day; Duration: 30 day(s) Active Gabapentin 300 MG 1 capsule Orally Two times a day; Duration: 30 day(s) 05/11/2024 Active Lisinopril 20 MG 1 tab(s) Orally once a day Active Vital Signs Weight 237.0 lbs 11/19/2024 Blood pressure systolic 120 mm Hg 11/19/20 24 Blood pressure diastolic 60 mm Hg 024 Heart Rate 69 /min 11/19/2024 Height 61.50 in 11/19/2024 BMI 44.05 kg/m2 11/19/2024 Encounters Encounter Location Date Provider Diagnosis [facility] [address] [place] [phone] 11/19/2024 Aston Mathew Essential hypertensi on I10 ; Idiopathic acute pancreatitis without infection or necrosis K85.00 ; Osteopenia of multiple sites M85.89 and Hyperkalemia E87.5 Assessments Encounter Date Diagnosis (ICD Code) Assessment Notes Treatment Notes Treatment Clinical Notes Section Notes 11/19/2024 Essential hypertension (ICD-10 - I10) 11/19/2024 Idiopathic acute pancreatitis without infection or necrosis (ICD-10 - K85.00) 11/19/2024 Osteopenia of multiple sites (ICD-10 - M85.89) Encourage Evista 11/19/2024 Hyperkalemia (ICD-10 - E87.5) Plan Of Treatment Treatment Notes Assessment Notes Osteopenia of multiple sites Encourage E vista Next Appt Details Follow Up: 3 Months, Reason: Provider Name:Aston Borges er, 10/25/2025 03:30:00 PM, [address], [address], [place], [place], [id number], Progress Notes * ELDA ZAMAN GDOB:1955 (70 yo F)Acc No.[id number]:11/19/2024 Progress Notes Patient: ELDA SEO Provider: Aston Mathew M.D. :1955 A ge:69 Y S ex:Female Date:11/19/2024 Address:[place], [id number] Pcp:Les Avilez Subjective: * Chief Complaints: * 1 . 3 month F/U. * HPI: H PI: 69 year old female presents with c/o Here for follow up on:?Pt sts she is here today for a 3 month f/u. Pt sts she has no new concerns or complaints at this time. Pt sts the last time she was seen here she had a mammogram and dexascan done and was put on a medication that she has not taken yet as she would like to discuss it first. * ROS: D ERMATOLOGY: no R dann. n o H eleazar. G ASTROENTEROLOGY: no N ausea. n o V omiting. n o D iarrhea.? U ROLOGY: no D ifficulty urinating. n [...] 1 tab(s) Orally once a day , Taking Raloxifene HCl 60 MG Tablet 1 tablet Orally Once a day , Medication List reviewed and reconciled with the patient * Allergies: S ulfa Antibiotics. Objective: * Vitals: W t:237.0, Temp:97.7, BP:120/60, HR:69, Nurse:[facility], Ht: 61.50, BMI:44.05. * Examination: G eneral Examination: General Appearance: [...] B ack:? mild dorsal kyphosis. E xtremities: 1 + leg edema. Assessment: * Assessment: 1. E ssential hypertension - I10 (Primary) 2 . I diopathic acute pancreatitis without infection or necrosis - K85.00 3 . O steopenia of multiple sites - M85.89 4 . H yperkalemia - E87.5 Plan: * Treatment: Value Reference Range A /G Ratio 1.5 1.1-2.5 - * A lbumin 4.0 3.5-5.3 - g/dL * A lkaline Phosphatase 121 35-121 - IU/L * A LT (SGPT) 33 <5-47 - IU/L * A ST (SGOT) 29 <5-40 - IU/L * B ilirubin, Total 0.3 <0.2-1.2 - mg/dL * B UN 12 8-23 - mg/dL * C alcium 9.4 8.6-10.4 - mg/dL * C hloride 103 97-108 - mmol/L * C O2 27 22-32 - mmol/L * C reatinine 0.67 0.50-1.00 - mg/dL * G lucose 90 65-99 - mg/dL * P otassium 4.4 3.5-5.3 - mmol/L * S odium 139 135-145 - mmol/L * P rotein 6.7 6.0-8.3 - g/dL * e GFR by Creatinine 93 >59 - mL/min/1.73m2 * Ivy Crowder 11/23/2024 1: 18:41 PM > , Patient informed of normal results. 2.?Osteopenia of multiple sites? Notes: Encourage Evista?? * Follow Up: 3 Months * Images: Billing Information: * Visit Code: 91675 Office Visit, Est Pt., Level 3. * Procedure Codes: * Electronic signature of Aston Mathew MD on 09/10/2025 at 02:59 PM EDT Sign off status: Pending * Provider: Aston Mathew M.D. Date: 1 01/20/2024 Generated for Jordani anuj/Prakash/eTransmitting on: 1 02:59 PM EDT History and Physical Notes * HPI (History of Present Illness) Category Sub-Category Detail Notes Category Not es HPI Here for follow up on: Pt sts sh e is here today for a 3 month f/u. Pt sts she has no new concerns or complaints at this time. Pt sts the last time she was seen here she had a mammogram and dexascan done and was put on a medication that she has not taken yet as she would like to discuss it first Examination Category Sub-Category Detail Notes Category Not es General Examination HEENT: unremarkable Heart: RSR Lungs: clear to auscultatio n Abdomen: obese, soft and nont ashley Extremities: 1+ leg edema General Appearance: NAD Skin: normal, no rash Neurologic Exam: Intact, gait normal Neck: supple, no lymphaden opathy Oral cavity: no lesions, mucosa m oist and WNL, no erythema Peripheral pulses: normal Back: mild dorsal kyphosis Chest: normal shape and exp ansion
--- OUTSIDE RECORDS SUMMARY | 2024-11-26 05:30 | XMS_ITS ---
Author Organization [facility] Address [address] [facility] [address] [place] [phone] Care Team Providers Care Energy Systems Engineer Name Role Phone Les Avilez Primary Care [...] Provider Diagnosis [facility] [address] [facility] [address] [place] [phone] 11/26/2024 Les Avilez Excessive wax in rig ht ear H61.21 Assessments Encounter Date Diagnosis (ICD Code) Assessment Notes Treatment Notes Treatment Clinical Notes Section Notes 11/26/2024 Excessive wax in right ear (ICD-10 - H61.21) Plan Of Treatment Next Appt Details Follow Up: prn, Reason: Provider Name:Aston Borges er, 10/25/2025 03:30:00 PM, [address], [address], [place], [place], [phone], Procedure Notes * Category Sub-Category Detail Notes Irrigation Of Ears Procedure Ear prepped b y soaking with H2O2, Flushed with peroxide and warm water, Ears irrigated free of most debris Location Right Progress Notes * ELDA ZAMAN GDOB:1955 (70 yo F)Acc No.[id number]:11/26/2024 Progress Notes Patient: ELDA SEO Provider: Edwige Avilez M.D. :1955 A ge:69 Y S ex:Female Date:11/26/2024 Address:[address] [place] [address] [id number] Subjective: * Chief Complaints: * 1 . [...] Information: * Visit Code: * Procedure Codes: 02210 EAR IRRIGATION. * Electronic signature of Katherine Avilez MD on 09/10/2025 at 03:00 PM EDT Sign off status: Pending * Provider: Ediwge Avilez M.D. Date: 0 11/26/2024 Generated for Eyal leslie/Prakash/Av on: 03:00 PM EDT History and Physical Notes * [...]
--- OUTSIDE RECORDS SUMMARY | 2025-03-08 11:00 | XMS_ITS ---
Author Organization [facility] Address [address] [place] [phone] Care Team Providers Care Grind Operator Name Role Phone Les Avilez Primary Care Provider Aston Mathew Unavailable [phone] Allergies Allergen (clinical drug ingredient) Drug/Non Drug Allergy documented on EMR Reaction Allergy Type Onset Date Status Substance with sulfonamide structure and antibacterial mechanism of action (substance) Sulfa Antibiotics Unknown Drug Allergy Active Results Component Value Reference Range Notes P-Basic Metabolic Panel (BMP ) Reviewed date:05/04/2025 03:33:35 PM Interpretation:K+ 5.5 Performing Lab: Notes/Report: Test performed by [facility], [facility] [address] [place] [address] , [address], [place] [address] Shay Davalos MD, Presetter Operator CLIA: [id number] Sodium 138 135-145 mmol/L Potassium 5.5 3.5-5.3 mmol/L Chloride 103 97-108 mmol/L CO2 23 22-32 mmol/L Glucose 87 65-99 mg/dL BUN 12 8-23 mg/dL Creatinine 0.69 0.50-1.00 mg/dL Calcium 9.5 8.6-10.4 mg/dL eGFR by Creatinine 92 >59 mL/min/1.73m2 EKG Reviewed date:05/04/2025 03:33:35 PM Interpretation: Performing Lab: Notes/Report: Holter Monitor- 48 hour Reviewed date:05/04/2025 03:33:35 PM Interpretation: Performing Lab: Notes/Report: REASON FOR VISIT 3 month check, Needs labs Medications Medication SIG (Take, Route, Frequency, Duration) Notes Start Date End Date Status Gabapentin 300 MG 1 capsule Orally Two times a day; Duration: 30 day(s) 05/11/2024 Not-Taking Pantoprazole Sodium 40 MG Take 1 tablet by mouth once daily; Duration: 90 Active Triamterene-HCTZ 37.5-25 MG 1 tab(s) orally once a day Active Raloxifene HCl 60 MG 1 tablet Orally Onc e a day; Duration: 30 day(s) 09/21/2024 Active Lisinopril 20 MG 1 tab(s) Orally once a day Active Potassium Chloride ER 10 MEQ 1 tablet with food Orally once a day Not-Taking Problems Problem Type SNOMED Code ICD Code Onset Dates Problem Status W/U Status Risk Notes Problem Ectopic beats (24056860) Ectopic beats (I49.49) Active confirmed Problem Body mass index 40+ - morbidly obese (496866149) BMI 40.0-44.9, adult (Z68.41) Active confirmed Vital Signs Weight 236.2 lbs 03/08/2025 Blood pressure systolic 140 mm Hg 03/08/20 25 Blood pressure diastolic 80 mm Hg 025 Heart Rate 77 /min 03/08/2025 Height 61.50 in 03/08/2025 BMI 43.90 kg/m2 03/08/2025 Encounters Encounter Location Date Provider Diagnosis [facility] [address] [facility] [address] [facility] [address] [place] [phone] 03/08/2025 Aston Mathew Essential hypertensi on I10 ; Ectopic beats I49.49 and BMI 40.0-44.9, adult Z68.41 Assessments Encounter Date Diagnosis (ICD Code) Assessment Notes Treatment Notes Treatment Clinical Notes Section Notes 03/08/2025 Essential hypertension (ICD-10 - I10) 03/08/2025 Ectopic beats (ICD-10 - I49.49) 03/08/2025 BMI 40.0-44.9, adult (ICD-10 - Z68.41) Plan Of Treatment Medication Medication Name Sig Start Date Stop Date Notes Triamterene-HCTZ 37.5-25 MG 1 tab(s) orally once a day Next Appt Details Follow Up: 1 Week, Reason: Provider Name:Aston Borges er, 10/25/2025 03:30:00 PM, [address], [address], [place], [phone], Progress Notes * ELDA ZAMAN GDOB:1955 (70 yo F)Acc No.[id number]:03/08/2025 Progress Notes Patient: ELDA SEO Provider: Aston Mathew M.D. :1955 A ge:69 Y S ex:Female Date:03/08/2025 Address:[place], [id number] Pcp:Les Avilez Subjective: * Chief Complaints: * 1 . 3 month check. 2. Needs labs. * HPI: C ardiology: The patient is here for a check up on Hypertension. Pt states she is doing good and denies any new concerns., but she STOPPED TAKING MAXZIDE SINCE SHE HAD NO REFILLS. hAD ELEVATED POTASSIUM CHECK. LIKELY HEMOLYZED. NEEDS FOLLOW-UP. Pt states she has not been checking her BP at home. Denies : Chest Pain. D enies : Short of Breath. D enies : Dizziness. D enies : Palpitations. E NT/respiratory: No further problem with her ears. G astroenterology: Denies : Abdominal Pain. * ROS: D ERMATOLOGY: no R dann. [...] , Colonoscopy 07/09/2016, Dental Implants . * Family History: F ather: alive, [...] ,Years: , Determination:. * Medications: T aking Lisinopril 20 MG Tablet 1 tab(s) Orally once a day , Taking Raloxifene HCl 60 MG Tablet 1 tablet Orally Once a day , Taking Pantoprazole Sodium 40 MG Tablet Delayed Release Take 1 tablet by mouth once daily , Not-Taking Potassium Chloride ER 10 MEQ Tablet Extended Release 1 tablet with food Orally once a day , Not-Taking Gabapentin 300 MG Capsule 1 capsule Orally Two times a day , Not-Taking Triamterene-HCTZ 37.5-25 MG Tablet 1 tab(s) orally once a day , Medication List reviewed and reconciled with the patient * Allergies: S ulfa Antibiotics. Objective: * Vitals: W t:236.2, Temp:98.0, BP:140/80, HR:77, Nurse:KELL, Ht: 61.50, Repeat BP:148/70, BMI:43.90. * Examination: G eneral Examination: General Appearance: N AD. H EENT: u nremarkable.?Oral cavity: n o lesions, mucosa moist and WNL, no erythema. N becca: s upple, no lymphadenopathy. C hest: n ormal shape and expansion. H eart: R SR, frequent ectopics. Lungs: c lear to auscultation. A bdomen: obese, soft and nontender. N eurologic Exam: I ntact, gait normal. S kin: n ormal, no rash. P eripheral pulses: n ormal . B ack: mild dorsal kyphosis. E xtremities: 1 + leg edema. ? Assessment: * Assessment: 1. E ssential hypertension - I10 (Primary) 2 . E ctopic beats - I49.49 3 . B ID 40.0-44.9, adult - Z68.41 Plan: * Treatment: Value Reference Range B UN 12 8-23 - mg/dL * C alcium 9.5 8.6-10.4 - mg/dL * C hloride 103 97-108 - mmol/L * C O2 23 22-32 - mmol/L * C reatinine 0.69 0.50-1.00 - mg/dL * G lucose 87 65-99 - mg/dL * P otassium 5.5 H 3.5-5.3 - mmol/L * S odium 138 135-145 - mmol/L * e GFR by Creatinine 92 >59 - mL/min/1.73m2 * Ibis Merino 05/04/2025 03: 32:14 PM EDT > see 05/06 OV 2.?Ectopic beats?Imaging: EKG (Performed Date - 03/12/2025)* Ibis Merino 05/04/2025 03: 32:14 PM EDT > see 05/06 OV ?Imaging: Holter Monitor- 48 hour (Performed Date - 03/12/2025)* Ibis Merino 05/04/2025 03: 32:14 PM EDT > see 05/06 OV * Procedure Codes: G 2211 Complex e/m visit add on, 3077F SYST BP = 140 MM HG6 IT, 3078F DIAST BP < 80 MM HG * Follow Up: 1 Week * Images: Billing Information: * Visit Code: 74732 Office Visit, Est Pt., Level 4. * Procedure Codes: G2211 Complex e/m visit add on. 3077F SYST BP = 140 MM HG6 IT. 3078F DIAST BP < 80 MM HG. * Electronic signature of Aston Mathew MD on 09/10/2025 at 03:00 PM EDT Sign off status: Pending * Provider: Aston Mathew M.D. Date: 0 03/08/2025 Generated for Printi ng/Faxing/eTransmitting on: 1 03:00 PM EDT History and Physical Notes * HPI (History of Present Illness) Category Sub-Category Detail Notes Category Not es Cardiology Short of Breath Chest Pain Palpitations Dizziness Gastroenterology Abdominal Pain Examination Category Sub-Category Detail Notes Category Not es General Examination HEENT: unremarkable Heart: RSR, frequent ectopi cs Lungs: clear to auscultatio n Abdomen: obese, soft and nont ashley Extremities: 1+ leg edema General Appearance: NAD Skin: normal, no rash Neurologic Exam: Intact, gait normal Neck: supple, no lymphaden opathy Oral cavity: no lesions, mucosa m oist and WNL, no erythema Peripheral pulses: normal Back: mild dorsal kyphosis Chest: normal shape and exp ansion
--- OUTSIDE RECORDS SUMMARY | 2025-05-06 09:45 | XMS_ITS ---
Author Organization [facility] Address [address] [place] [phone] Care Team Providers Care Senior Manager Quality Assurance Name Role Phone Terrance Avilezian Primary Care Provider Aston Mathew Unavailable [phone] Allergies Allergen (clinical drug ingredient) Drug/Non Drug Allergy documented on EMR Reaction Allergy Type Onset Date Status Substance with sulfonamide structure and antibacterial mechanism of action (substance) Sulfa Antibiotics Unknown Drug Allergy Active Results Component Value Reference Range Notes P-Comprehensive Metabolic Pa vaibhav (CMP) Reviewed date:05/25/2025 03:51:59 PM Interpretation:Normal Performing Lab: Notes/Report: Test performed by [facility] [address] [place] [address] , [address], [place] [address] Shay Davalos MD, Slip Cover Seamstress CLIA: [id number] Sodium 139 135-145 mmol/L Potassium 4.5 3.5-5.3 [...] 0.3 <0.2-1.2 mg/dL A/G Ratio 1.6 1.1-2.5 Holter - 7 day Reviewed date:06/25/2025 12:43:10 PM Interpretation: Performing Lab: Notes/Report: REASON FOR VISIT follow up on Holter [...] Status W/U Status Risk Notes Problem Hyperkalemia (09905691) Hyperkalemia (E87.5) Active confirmed Vital Signs Weight 232.0 lbs 05/06/2025 Blood pressure systolic 170 mm Hg 05/06/20 25 Blood pressure diastolic 80 mm Hg 025 Heart Rate 78 /min 05/06/2025 Height 61.50 in 05/06/2025 BMI 43.12 kg/m2 05/06/2025 Encounters Encounter Location Date Provider Diagnosis [facility] [facility] [address] [phone] 05/06/2025 Aston Mathew Ectopic beats I49.49 ; [...] a day Next Appt Details Follow Up: 4 Weeks, Reason: Provider Name:Aston Borges er, 10/25/2025 03:30:00 PM, [address], [address], [place], [place], [phone], Progress Notes * ELDA ZAMAN GDOB:1955 (70 yo F)Acc No.[id number]:05/06/2025 Progress Notes Patient: ELDA SEO Provider: Aston Mathew M.D. :1955 A ge:69 Y S ex:Female Date:05/06/2025 Address:[place], [id number] Pcp:Les Avilez Subjective: * Chief Complaints: * [...] ssential hypertension - I10 3 . B [place] 40.0-44.9, adult - Z68.41 4 . H [...] * Images: Billing Information: * Visit Code: 54621 Office Visit, Est Pt., Level 3. * Procedure Codes: 1036F TOBACCO NON-USER. * Electronic signature of Aston Mathew MD on 09/10/2025 at 02:59 PM EDT Sign off status: Pending * Provider: Aston Mathew M.D. Date: 0 05/06/2025 Generated for Eyal leslie/Prakash/Amishaitting on: 1 02:59 PM EDT History and [...]
--- OUTSIDE RECORDS SUMMARY | 2025-07-01 11:45 | XMS_ITS ---
Author Organization [facility] Address [address] [place] [id number] Care Team Providers Care Hand Brim Ironer Name Role Phone Les Avilez Primary Care Provider [phone] Aston Mathew Unavailable [phone] Allergies Allergen (clinical drug ingredient) Drug/Non Drug Allergy documented on EMR Reaction Allergy Type Onset Date Status Substance with sulfonamide structure and antibacterial mechanism of action (substance) Sulfa Antibiotics Unknown Drug Allergy Active Results Component Value Reference Range Notes P-TSH Reviewed date:07/05/2025 04:26:02 PM Interpretation:Normal Performing Lab: Notes/Report: Test performed by [facility] [employer] [address] [place] [address] , [address], [place] [address] Shay Davalos MD, Sawmill Equipment Operator CLIA: [id number] TSH 1.36 0.43-5.25 mU/L REASON FOR VISIT F/U to Discuss Holter Medications Medication SIG (Take, Route, Frequency, Duration) Notes Start Date End Date Status Raloxifene HCl 60 MG 1 tablet Orally Onc e a day; Duration: 30 day(s) Active Pantoprazole Sodium 40 MG Take 1 tablet by mouth once daily; Duration: 90 Active Potassium Chloride ER 10 MEQ 1 tablet with food Orally once a day Not-Taking Metoprolol Succinate 25 MG 1 capsule Orally Once a day; Duration: 90 days 07/01/2025 Active Gabapentin 300 MG 1 capsule Orally Two times a day; Duration: 30 day(s) 05/11/2024 Not-Taking Triamterene-HCTZ 37.5-25 MG 1 tab(s) orally once a day Active Lisinopril 20 MG 1 tab(s) Orally once a day; Duration: 30 days Active Vital Signs Weight 238.2 lbs 07/01/2025 Blood pressure systolic 150 mm Hg 07/01/20 25 Blood pressure diastolic 70 mm Hg 025 Heart Rate 70 /min 07/01/2025 Height 61.50 in 07/01/2025 BMI 44.27 kg/m2 07/01/2025 Encounters Encounter Location Date Provider Diagnosis [facility] [address] [facility] [address] [place] [id number] 07/01/2025 Aston Mathew Ectopic beats I49.49 ; Essential hypertension I10 and Synovial cyst M71.30 Assessments Encounter Date Diagnosis (ICD Code) Assessment Notes Treatment Notes Treatment Clinical Notes Section Notes 07/01/2025 Ectopic beats (ICD-10 - I49.49) 07/01/2025 Essential hypertension (ICD-10 - I10) 07/01/2025 Synovial cyst (ICD-10 - M71.30) Plan Of Treatment Medication Medication Name Sig Start Date Stop Date Notes Metoprolol Succinate 25 MG 1 capsule Ora lly Once a day; Duration: 90 days 07/01/2025 Next Appt Details Follow Up: 3 Weeks, Reason: Provider Name:Aston Borges er, 10/25/2025 03:30:00 PM, [address] [place] [address] [address] [facility], [address], [place], [id number], Progress Notes * ELDA ZAMAN GDOB:1955 (70 yo F)Acc No.[id number]:07/01/2025 Progress Notes Patient: ELDA SEO Provider: Aston Mathew M.D. :1955 A ge:69 Y S ex:Female Date:07/01/2025 Address:[facility] [id number] Pcp:Les Avilez Subjective: * Chief Complaints: * 1 . F/U to Discuss Holter. * HPI: C ardiology: The pt is here today to discuss the results of her recent holter monitor. See pt docs. Pt states she does get short of breath with exertion. 69 year old female presents with c/o Short of Breath. Denies : Chest Pain. D enies : Dizziness. D enies : Palpitations. W rist/Hand: The pt also c/o a small tender cyst of the left middle finger. Pt states she will sometime puncture it with a needle and some clear subtance will come out. * ROS: D ERMATOLOGY: no R dann. [...] ,Years: , Determination:. * Medications: T aking Raloxifene HCl 60 MG Tablet 1 tablet Orally Once a day , Taking Triamterene-HCTZ 37.5-25 MG [...] ulfa Antibiotics. Objective: * Vitals: W t: 238.2, Temp: 98.1, BP: 150/70, HR: 70, O2 Sat: 99% on RA, Nurse: KELL, Ht: 61.50, BMI:44.27. * Examination: G eneral Examination: General Appearance: [...] dorsal kyphosis. E xtremities: 1 + leg edema, synovial cyst of DIP joint 3rd digit right hand. Assessment: * Assessment: 1. E ctopic beats - I49.49 (Primary) 2 . E ssential hypertension - I10 3 . S ynovial cyst - M71.30 Plan: * Treatment: Value Reference Range T SH 1.36 0.43-5.25 - mU/L * Ivy Crowder 07/05/2025 04 :25:50 PM EDT > Patient informed of normal results. * Procedure Codes: 1 036F TOBACCO NON-USER * Follow Up: 3 Weeks * Images: Billing Information: * Visit Code: 62366 Office Visit, Est Pt., Level 3. * Procedure Codes: 1036F TOBACCO NON-USER. * Electronic signature of Aston Mathew MD on 09/10/2025 at 03:00 PM EDT Sign off status: Pending * Provider: Aston Mathew M.D. Date: 0 07/01/2025 Generated for Jordani ng/Prakash/eTransmitting on: 03:00 PM EDT History and Physical Notes * HPI (History of Present Illness) Category Sub-Category Detail Notes Category Not es Cardiology Short of Breath Chest Pain Palpitations Dizziness Examination Category Sub-Category Detail Notes Category Not es General Examination HEENT: unremarkable Heart: RSR Lungs: clear to auscultatio n Abdomen: obese, soft and nont ashley Extremities: 1+ leg edema, synovi al cyst of DIP joint 3rd digit right hand General Appearance: NAD Skin: normal, no rash Neurologic Exam: Intact, gait normal Neck: supple, no lymphaden opathy Oral cavity: no lesions, mucosa m oist and WNL, no erythema Peripheral pulses: normal Back: mild dorsal kyphosis Chest: normal shape and exp ansion
--- OUTSIDE RECORDS SUMMARY | 2025-07-20 04:54 | XMS_ITS ---
Author Organization [facility] Address [address] [facility] [address] [facility] [address] [place] [id number] Care Team Providers Care Soc Analyst Name Role Phone Les Avilez Primary Care Provider REASON FOR VISIT due gauri, dexa 09/09/2025 Encounters Encounter Location Date Provider Diagnosis [facility] [address] [place] [id number] 07/20/2025 Les Avilez Breast cancer screening Z12.31 Assessments Encounter Date Diagnosis (ICD Code) Assessment Notes Treatment Notes Treatment Clinical Notes Section Notes 07/20/2025 Breast cancer screening (ICD-10 - Z12.31) Plan Of Treatment Next Appt Details Provider Name:Aston Borges er, 10/25/2025 03:30:00 PM, [address], [address], [place], [id number], Progress Notes * ELDA ZAMAN GDOB:1955 (69 yo F)Acc No.[id number]:07/20/2025 Patient: ELDA SEO :1955 A ge:69 Y S ex:Female Address:[place] [address] Subjective: * Chief Complaints: * D ue gauri, dexa 09/09/2025 * Medical History: * Surgical History: * Hospitalization/Major Diagno stic Procedure: * Medications: Objective: * Vitals: * Physical Examination: Assessment: * Assessment: 1. B reast cancer screening - Z12.31 (Primary) Plan: * Treatment: * Procedure Codes: * true * Date: Generated for Eyal leslie/Prakash/Av on: 03:00 PM EDT
--- OUTSIDE RECORDS SUMMARY | 2025-07-22 11:00 | XMS_ITS ---
Author Organization [facility] Address [address] [place] [id number] Care Team Providers Care Rear Admiral Name Role Phone Les Avilez Primary Care Provider Aston Mathew Unavailable [phone] Allergies Allergen (clinical drug ingredient) Drug/Non Drug Allergy documented on EMR Reaction Allergy Type Onset Date Status Substance with sulfonamide structure and antibacterial mechanism of action (substance) Sulfa Antibiotics Unknown Drug Allergy Active REASON FOR VISIT due kyle astorga 09/09/2025, follow up Medications Medication SIG (Take, Route, Frequency, Duration) Notes Start Date End Date Status Potassium Chloride ER 10 MEQ 1 tablet with food Orally once a day Active Triamterene-HCTZ 37.5-25 MG 1/2 orally once a day Active Pantoprazole Sodium 40 MG Take 1 tablet by mouth once daily; Duration: 90 Active Gabapentin 300 MG 1 capsule Orally Two times a day; Duration: 30 day(s) 05/11/2024 Active Lisinopril 20 MG 1 tab(s) Orally once a day; Duration: 30 days Active Raloxifene HCl 60 MG 1 tablet Orally Onc e a day; Duration: 30 day(s) Active Metoprolol Succinate 25 MG 1 capsule Ora lly Once a day; Duration: 90 days 07/01/2025 Active Vital Signs Weight 237.6 lbs 07/22/2025 Blood pressure systolic 142 mm Hg 07/22/20 25 Blood pressure diastolic 70 mm Hg 025 Heart Rate 69 /min 07/22/2025 Height 61.50 in 07/22/2025 BMI 44.16 kg/m2 07/22/2025 Encounters Encounter Location Date Provider Diagnosis [facility] [address] [facility] [address] [facility] [address] [place] [id number] 07/22/2025 Aston Mathew Ectopic beats I49.49 ; HTN (hypertension) I10 and BMI 40.0-44.9, adult Z68.41 Assessments Encounter Date Diagnosis (ICD Code) Assessment Notes Treatment Notes Treatment Clinical Notes Section Notes 07/22/2025 Ectopic beats (ICD-10 - I49.49) 07/22/2025 HTN (hypertension) (ICD-10 - I10) 07/22/2025 BMI 40.0-44.9, adult (ICD-10 - Z68.41) Plan Of Treatment Medication Medication Name Sig Start Date Stop Date Notes Triamterene-HCTZ 37.5-25 MG 1/2 orally once a day Next Appt Details Follow Up: 3 Months, Reason: Provider Name:Aston Borges er, 10/25/2025 03:30:00 PM, [address] [facility] [address] [facility], [address], [place], [id number], Progress Notes * ELDA ZAMAN GDOB:1955 (70 yo F)Acc No.[id number]:07/22/2025 Progress Notes Patient: ELDA SEO Provider: Aston Mathew M.D. :1955 A ge:69 Y S ex:Female Date:07/22/2025 Address:[address] [place] [address] [place], [id number] Pcp:Les Avilez Subjective: * Chief Complaints: * 1 . Due gauri, dexa 09/09/2025. 2. Follow up. * HPI: C ardiology: Pt here for follow up on Hypertension and Ectopic beats. Pt was started on Metoprolol 25MG. Pt states she is doing well and has no other concerns at this time. * ROS: D ERMATOLOGY: no R dann. [...] ,Years: , Determination:. * Medications: T aking Metoprolol Succinate 25 MG Capsule ER 24 Hour Sprinkle 1 capsule Orally Once a day , Taking Raloxifene HCl 60 MG Tablet 1 tablet Orally Once a day , Taking Triamterene-HCTZ 37.5-25 MG Tablet 1 tab(s) orally once a day , Taking Lisinopril 20 MG Tablet 1 tab(s) Orally once a day , Taking Pantoprazole Sodium 40 MG Tablet Delayed Release Take 1 tablet by mouth once daily , Taking Potassium Chloride ER 10 MEQ Tablet Extended Release 1 tablet with food Orally once a day , Taking Gabapentin 300 MG Capsule 1 capsule Orally Two times a day , Medication List reviewed and reconciled with the patient * Allergies: S ulfa Antibiotics. Objective: * Vitals: W t: 237.6, Temp: 97.4, BP: 142/70, HR: 69, Nurse: SF, Ht: 61.50, Repeat BP: 142/74, BMI:44.16. * Examination: G eneral Examination: General Appearance: N AD. H EENT: u nremarkable.?Oral cavity: n o lesions, mucosa moist and WNL, no erythema. N becca: s upple, no lymphadenopathy. C hest: n ormal shape and expansion. H eart: R SR, no ectopics. L ungs: c lear to auscultation. A bdomen: obese, soft and nontender. N eurologic Exam: I ntact, gait normal. S kin: n ormal, no rash. P eripheral pulses: n ormal .?Back: mild dorsal kyphosis. E xtremities: t race leg edema. Assessment: * Assessment: 1. E ctopic beats - I49.49 (Primary) 2 . H TN (hypertension) - I10 ? 3 . B OR 40.0-44.9, adult - Z68.41 Plan: * Treatment: * Procedure Codes: 1 036F TOBACCO NON-USER, 3077F SYST BP = 140 MM HG6 IT, 3078F DIAST BP < 80 MM HG * Follow Up: 3 Months * Images: Billing Information: * Visit Code: 45446 Office Visit, Est Pt., Level 4. * Procedure Codes: 1036F TOBACCO NON-USER. 3077F SYST BP = 140 MM HG6 IT. 3078F DIAST BP < 80 MM HG. * Electronic signature of Aston Mathew MD on 09/10/2025 at 02:59 PM EDT Sign off status: Pending * Provider: Aston Mathew M.D. Date: 0 07/22/2025 Generated for Jordani ng/Prakash/eTransmitting on: 1 02:59 PM EDT History and Physical Notes * HPI (History of Present Illness) Category Sub-Category Detail Notes Category Not es Cardiology Pt here for fol low up on Hypertension and Ectopic beats. Pt was started on Metoprolol 25MG. Pt states she is doing well and has no other concerns at this time Examination Category Sub-Category Detail Notes Category Not es General Examination HEENT: unremarkable Heart: RSR, no ectopics Lungs: clear to auscultatio n Abdomen: obese, soft and nont ashley Extremities: trace leg edema General Appearance: NAD Skin: normal, no rash Neurologic Exam: Intact, gait normal Neck: supple, no lymphaden opathy Oral cavity: no lesions, mucosa m oist and WNL, no erythema Peripheral pulses: normal Back: mild dorsal kyphosis Chest: normal shape and exp ansion
--- OUTSIDE RECORDS SUMMARY | 2025-08-10 10:49 | XMS_ITS ---
Author Organization [facility] Address [address] [facility] [address] [facility] [address] [place] [id number] Care Team Providers Care Wound Care Rn Name Role Phone Les Avilez Primary Care Provider REASON FOR VISIT Mammo due 09/09/25 Encounters Encounter Location Date Provider Diagnosis [facility] [address] [facility] [address] [place] [id number] 08/10/2025 Les Avilez Breast cancer screening Z12.31 Assessments Encounter Date Diagnosis (ICD Code) Assessment Notes Treatment Notes Treatment Clinical Notes Section Notes 08/10/2025 Breast cancer screening (ICD-10 - Z12.31) Plan Of Treatment Pending Test Test Name Order Date Mammogram 08/10/2025 Next Appt Details Provider Name:Aston Agarwal Katerina er, 10/25/2025 03:30:00 PM, [address] [facility], [address], [place], [id number], Progress Notes * ELDA ZAMAN GDOB:1955 (69 yo F)Acc No.[id number]:08/10/2025 Patient: Nacho BOYD ELDA G :1955 A ge:69 Y S ex:Female Address:[place] [address] Subjective: * Chief Complaints: * M ammo due 09/09/25 * Medical History: * Surgical History: * Hospitalization/Major Diagno stic Procedure: * Medications: Objective: * Vitals: * Physical Examination: Assessment: * Assessment: 1. B reast cancer screening - Z12.31 (Primary) Plan: * Treatment: * Procedure Codes: * true * Date: Generated for Eyal leslie/Prakash/Av on: 02:58 PM EDT
--- OUTSIDE RECORDS SUMMARY | 2025-09-10 15:00 | XMS_ITS | Patient Health Record ---
[facility] Address [address] [place] [id number] Care Team Providers Care Cone Tender Name Role Phone Les Avilez Primary Care Provider Aston Mathew Unavailable [phone] Allergies Allergen (clinical drug ingredient) Drug/Non Drug Allergy documented on EMR Reaction Allergy Type Onset Date Status Substance with sulfonamide structure and antibacterial mechanism of action (substance) Sulfa Antibiotics Unknown Drug Allergy Active Results Component Value Reference Range Notes P-Comprehensive Metabolic Pa vaibhav (CMP) Reviewed date:05/25/2025 03:51:59 PM Interpretation:Normal Performing Lab: Notes/Report: Test performed by [facility] [address] [place] [address] , [address], [place] [address] Shay Davalos MD, Assistant Project Manager CLIA: [id number] Sodium 139 135-145 mmol/L Potassium 4.5 3.5-5.3 [...] date:06/25/2025 12:43:10 PM Interpretation: Performing Lab: Notes/Report: P-TSH Reviewed date:07/05/2025 04:26:02 PM Interpretation:Normal Performing Lab: Notes/Report: Test performed by [facility] [address] [place] [address] , [place] [address] Shay Davalos MD, Assistant Project Manager CLIA: [id number] TSH 1.36 0.43-5.25 mU/L P-Basic Metabolic Panel (BMP ) Reviewed date:05/04/2025 03:33:35 PM Interpretation:K+ 5.5 Performing Lab: Notes/Report: CLIA: [id number] Shay Davalos MD, Assistant Project Manager [address] [place] [address] [place] [address] Test performed by [facility] Sodium 138 135-145 mmol/L Potassium 5.5 3.5-5.3 mmol/L Chloride 103 97-108 mmol/L CO2 23 22-32 mmol/L Glucose 87 65-99 mg/dL BUN 12 8-23 mg/dL Creatinine 0.69 0.50-1.00 mg/dL Calcium 9.5 8.6-10.4 mg/dL eGFR by Creatinine 92 >59 mL/min/1.73m2 EKG Reviewed date:05/04/2025 03:33:35 PM Interpretation: Performing Lab: Notes/Report: Holter Monitor- 48 hour Reviewed date:05/04/2025 03:33:35 PM Interpretation: Performing Lab: Notes/Report: P-Comprehensive Metabolic Pa vaibhav (CMP) Reviewed date:11/23/2024 01:18:49 PM Interpretation:Normal Performing Lab: Notes/Report: CLIA: [id number] Shay Davalos MD, Assistant Project Manager [address] [place] [address] [place] [address] Test performed by [facility] Sodium 139 135-145 mmol/L Potassium 4.4 3.5-5.3 [...] 0.3 <0.2-1.2 mg/dL A/G Ratio 1.5 1.1-2.5 Reason For Referral No Information Medications Medication SIG (Take, Route, Frequency, Duration) [...] a day; Duration: 30 day(s) 05/11/2024 Active Metoprolol Succinate 25 MG 1 capsule Ora lly Once a day; Duration: 90 days 07/01/2025 Active Raloxifene HCl 60 MG Take 1 tablet by mo ut once daily; Duration: 30 Active Lisinopril 20 MG 1 tab(s) Orally once a day; Duration: 30 days Active Immunizations Vaccine Route Administration Date Status Comme nts xFluzone High Dose-private (65yr&older) Unknown 09/25/2018 Administered Tetanus Tdap-Adacel (over 7yrs) Unknown 07/02/2023 Admi nistered Shingrix Unknown 07/02/2023 Administered Prevnar (PCV20) Unknown 07/02/2023 Administered Hepatitis A (adult) Unknown 09/25/2018 Administered Hepatitis A (adult) Unknown 04/10/2019 Administered Fluzone Quad (6months&older) Unknown 09/28/2019 Adminis tered Fluzone PF Quad (6-35 months) Unknown 09/19/2021 Admini stered COVID 19 Moderna Unknown 12/14/2020 Administered COVID 19 Moderna Unknown 01/13/2021 Administered Problems Problem Type SNOMED Code ICD Code Onset Dates Problem Status W/U Status Risk Notes Problem Essential hypertension (35948743) Essential (primary) hypertension (I10) Active confirmed Problem Hyperkalemia (46076540) Hyperkalemia (E87.5) Active confirmed Problem Pain of right shoulder region (finding) (2655466753) Pain in right shoulder (M25.511) Active confirmed Problem Hypertension (60013793) HTN (hypertension) (I10) Active confirmed Problem Vitamin D deficiency (02463575) Vitamin D deficiency (E55.9) Active confirmed Problem Essential hypertension (71656788) Essential hypertension (I10) Active confirmed Problem Chronic pain (05891322) Other chronic pain (G89.29) Active confirmed Problem Body mass index 40+ - morbidly obese (988477863) BMI 40.0-44.9, adult (Z68.41) Active confirmed Problem Cervical spondylosis without myelopathy (442593554) Osteoarthritis of spine with radiculopathy, cervical region (M47.22) Active confirmed Problem Band neutrophil count above reference range (349645567) Bandemia without diagnosis of specific infection (D72.825) Active confirmed Problem Acute pancreatitis (669790674) Idiopathic acute pancreatitis without infection or necrosis (K85.00) Active confirmed Problem Fibrocystic breast changes (42690211) Fibrocystic breast disease (FCBD), unspecified laterality (N60.19) Active confirmed Problem Hypertensive heart disease without congestive heart failure (05114717) Hypertensive heart disease, unspecified whether heart failure present (I11.9) Active confirmed Problem Ectopic beats (57944702) Ectopic beats (I49.49) Active confirmed Problem Shoulder joint pain (748244703) Shoulder pain, unspecified chronicity, unspecified laterality (M25.519) Active confirmed Vital Signs Heart Rate 69 /min 07/22/2025 Blood pressure diastolic 70 mm Hg 07/22/2025 Height 61.50 in 07/22/2025 Blood pressure systolic 142 mm Hg 07/22/2025 Weight 237.6 lbs 07/22/2025 BMI 44.16 kg/m2 07/22/2025 Encounters Encounter Location Date Provider Diagnosis [facility] [address] [facility] [address] [place], [place] [id number] 11/19/2024 Aston Mathew Essential hypertensi on I10 ; Idiopathic acute pancreatitis without infection or necrosis K85.00 ; Osteopenia of multiple sites M85.89 and Hyperkalemia E87.5 [facility] [address] [facility] [address] [place], [place] [id number] 11/26/2024 Les [place] Excessive wax in rig ht ear H61.21 [facility] [address] [facility] [address] [place], [place] [id number] 03/08/2025 Aston Mathew Essential hypertensi on I10 ; Ectopic beats I49.49 and BMI 40.0-44.9, adult Z68.41 [facility] [address] [facility] [address] [place], [place] [id number] 05/06/2025 J Stefano Mathew Ectopic beats I49.49 ; Essential hypertension I10 ; BMI 40.0-44.9, adult Z68.41 and Hyperkalemia E87.5 [facility] [address] [facility] [address] [place], [place] [id number] 07/01/2025 J Stefano Mathew Ectopic beats I49.49 ; Essential hypertension I10 and Synovial cyst M71.30 [facility] [address] [facility] [address] [place], [place] [id number] 07/22/2025 J Stefano Mathew Ectopic beats I49.49 ; HTN (hypertension) I10 and BMI 40.0-44.9, adult Z68.41 [facility] [address] [facility] [address] [place], [place] [id number] 09/10/2024 Aston Mathew [facility] [address] [facility] [address] [place], [place] [id number] 04/09/2025 Aston Mathew [facility] [address] [facility] [address] [place], [place] [id number] 06/25/2025 J Stefano Mathew [facility] [address] [facility] [address] [place], [place] [id number] 07/20/2025 Les [place] Breast cancer screen ing Z12.31 [facility] [address] [facility] [address] [place], [place] [id number] 08/10/2025 Les [place] Breast cancer screen ing Z12.31 Assessments Encounter Date Diagnosis (ICD Code) Assessment Notes Treatment Notes Treatment Clinical Notes Section Notes 11/19/2024 Essential hypertension (ICD-10 - I10) 11/19/2024 Idiopathic acute pancreatitis without infection or necrosis (ICD-10 - K85.00) 11/26/2024 Excessive wax in right ear (ICD-10 - H61.21) 03/08/2025 Essential hypertension (ICD-10 - I10) 03/08/2025 Ectopic beats (ICD-10 - I49.49) 05/06/2025 Essential hypertension (ICD-10 - I10) 07/01/2025 Ectopic beats (ICD-10 - I49.49) 07/20/2025 Breast cancer screening (ICD-10 - Z12.31) 07/22/2025 Ectopic beats (ICD-10 - I49.49) 08/10/2025 Breast cancer screening (ICD-10 - Z12.31) 05/06/2025 Ectopic beats (ICD-10 - I49.49) 07/01/2025 Essential hypertension (ICD-10 - I10) 07/01/2025 Synovial cyst (ICD-10 - M71.30) 07/22/2025 HTN (hypertension) (ICD-10 - I10) 05/06/2025 BMI 40.0-44.9, adult (ICD-10 - Z68.41) 03/08/2025 BMI 40.0-44.9, adult (ICD-10 - Z68.41) 11/19/2024 Osteopenia of multiple sites (ICD-10 - M85.89) [employer] 11/19/2024 Hyperkalemia (ICD-10 - E87.5) 05/06/2025 Hyperkalemia (ICD-10 - E87.5) 07/22/2025 BMI 40.0-44.9, adult (ICD-10 - Z68.41) Plan Of Treatment Pending Test Test Name Order Date Mammogram 08/10/2025 MRI : Spine, Cervical with and without c ontrast 04/27/2024 Next Appt Details Provider Name:Aston Borges er, 10/25/2025 03:30:00 PM, [address], [address], [place], [place], [id number], Insurance Providers Payer Name Payer Address Payer Phone Subscriber Number Group Number Insured Name Patient Relationship to Insured Coverage Start Date Coverage End Date JEROME AVILEZ [employer] [address] [place] [address] [id number] ELDA ZAMAN Self - patient is the insured MEDICARE PART B [address] [address] [place] [address] [id number] ELDA Self - patient is the insured Medical (General) History Medical History History ICD Code Hypertension Moderna covid vaccine x2 Dec 2020 Surgical History Surgery Date(Month/Year) Hysterectomy, abdominal Cholecystectomy Root Canal Colonoscopy 07/09/2016 Dental Implants Hospitalization History Reason Date(Month/Year)
--- OUTSIDE RECORDS SUMMARY | 2025-09-10 15:00 | XMS_ITS | Data Portability ---
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 Etiology is not clear. She denies alcohol use, is s/p remote cholecystectomy, normal lipid panel. No mass or biliary abnormality seen on CT. Hepatic function labs have been normal. She is recovering well overall. -Will obtain endoscopic ultrasound for further evaluation of idiopathic pancreatitis. -Due to history of duodenal erosions and recent pancreatitis, will also obtain an EGD. -Continue PPI. -Recommended she maintain good oral hydration. Continue a low-fat diet. [email or web address] Not available 09/17/2023 11:00:41 12/05/2023 12/05/2023 68-year-old beatrice puckett with hospitalization due to uncomplicated idiopathic acute pancreatitis. She denies alcohol use, is s/p remote cholecystectomy, normal lipid panel. No mass or biliary abnormality seen on CT. No etiology found on EUS. Hepatic function labs have been normal. Her symptoms are generally improved. - Discussed EUS finding of hyperechoic ampulla with Dr. Beard. This is benign, no intervention needed at this time. - EUS revealed fatty liver. Patient's liver enzymes were normal on 08/04/2023 lab work present on referral from Dr. Nelson's office. Discussed annual follow-up to ensure liver enzymes stay within normal limits with us or her PCP. - No evidence of duodenitis or duodenal erosions on EGD. The patient reports a history of this. - Continue PPI for acid reflux. Add women's multivitamin daily. - Continue low-fat diet Follow up as needed Not available 12/05/2023 16:42:49 Plan of Treatment Reminders Order Date Submit Date Provider Last Modified By Organization Details Last Modified Time Details Appointments None record ed. Lab None record ed. Referral None record ed. Procedures None record ed. Surgeries None record ed. Imaging None record ed. Medication Orders None record ed. Patient TargetsNo targets recorded. Patient InstructionsNo instructions recorded. Reason for Referral None Reported. Results Created Date Observation Date Name Description Value Unit Range Abnormal Flag Note LastModifiedBy Organization Detail LastModifiedTime Result Notes None recorded. Problems Name Problem SNOMED Code Status Onset Date Resolution Date Notes Provider Name and Address Organization Details Recorded Time Idiopathic acute pancreatitis 213404827 Active 2022 Jovany Medeiros PA-C [address] [facility], [place], [address] , [facility] & [place] 3 10:55:42 Problem Notes None recorded. Medical Equipment None Reported. Allergies Allergen ID Allergen Name Allergen Category Reaction Reaction Severity Criticality Documentation Date Start Date Code Code System Note Provider Name and Address Organization Details Recorded Time 12782 Substance with sulfonami de structure and antibacte rial mechanism of action (substanc e) medicatio n Not available Not available Not available 09/17/2023 67874 8003 [facility]ED [facility] [place] 3 10:21:04 [address]2823 codeine medicatio n Not available Not available Not available 09/17/2023 2670 [facility] 10:[facility]18 Medications Name Sig Start Date Stop Date Status Note LastModified by Organization Details LastModified Time potassium chloride ER 10 mEq capsule,exte nded release TAKE ONE CAPSULE BY MOUTH EVERY DAY active Not Available Not Available No t Available lisinopril 20 mg tablet TAKE 1 TABLET BY MOUTH ONCE DAILY active Not Available Not Available No t Available potassium chloride ER 10 mEq tablet,exten ded release TAKE 1 TABLET BY MOUTH ONCE DAILY WITH FOOD active Not Available Not Available No t Available amlodipine 5 mg tablet TAKE 1 TABLET BY MOUTH ONCE DAILY active Not Available Not Available No t Available tramadol 50 mg tablet TAKE ONE TABLET BY MOUTH EVERY 6 HOURS NEEDED FOR mild TO moderate pain MAY CAUSE DROWSINESS active Not Available Not Available N ot Available pantoprazole 40 mg tablet,delay ed release TAKE ONE TABLET BY MOUTH EVERY DAY active Not Available Not Available No t Available hyoscyamine 0.125 mg sublingual tablet DISSOLVE ONE TABLET UNDER THE TONGUE FOUR TIMES DAILY NEEDED FOR stomach pain active Not Available Not Available No t Available triamterene 37.5 mg-hydrochlo rothiazide 25 mg tablet TAKE 1 TABLET BY MOUTH ONCE DAILY FOR BLOOD PRESSURE active Not Available Not Available No t Available lisinopril 5 mg tablet TAKE 1 TABLET BY MOUTH ONCE DAILY active Not Available Not Available No t Available hydrochlorot hiazide 25 mg tablet TAKE 1 TABLET BY MOUTH ONCE DAILY active Not Available Not Available No t Available cefdinir 300 mg capsule TAKE 1 CAPSULE BY MOUTH TWICE DAILY FOR 7 DAYS active Not Available Not Available No t Available Vitals Date Recorded Body height Body mass index (BMI) Body weight Body temperature Oxygen saturation Oxygen saturation in Arterial blood by Pulse oximetry Heart rate Heart rate Systolic And Diastolic Provider Name and Address Organization Details Last Updated DateTime 4 154.94 cm 42.8 kg/m2 489675. 39 g 97.3 [degF] 100 % 100 % 84 /min 84 /min 131/76 mm[Hg] Johannsteffenkrishna Merritt [facility] & [place] 4 14:31:26 Date Recorded Body weight Body mass index (BMI) Body height Body temperature Oxygen saturation Oxygen saturation in Arterial blood by Pulse oximetry Heart rate Heart rate Systolic And Diastolic Provider Name and Address Organization Details Last Updated DateTime 3 935194. 56 g 42.5 kg/m2 154.94 cm 97.3 [degF] 98 % 98 % 60 /min 82 /min 146/77 mm[Hg] Alejandro Merritt [place] [facility] & [place] 3 10:18:57 Social History Question Answer Notes LastModified by Organizat ion Details LastModified Time Tobacco Smoking Status Never Smoker Alejandro Merrittmichelle garcía [facility] & [place] 09/17/2023 10:23:17 What Is Your Level Of Caffeine Consumption? Occasional [email or web address] Information not available 09/17/2023 Sex: Unknown Functional Status Question Answer Note LastModified by Organizat ion Details LastModified Time Do you use any illicit or recreational drugs? No [email or web address] Information not available 09/17/2023 Do you or have you ever used any other forms of tobacco or nicotine? No [email or web address] Information not available 09/17/2023 Mental Status None recorded. Family History Nothing Reported. Medical History No medical history recorded. Gynecological HistoryNo gynecological history recorded. Obstetrics History GPAL:G 0 P 0 0 0 0 Past Encounters Encounter ID Performer Location Encounter Start Date Encounter Closed Date Diagnosis/Indication Diagnosis SNOMED-CT Code Diagnosis ICD10 Code Diagnosis IMO Codes Diagnosis Note [id number] Jovany Medeiros PA-C [facility] [id number] 09/17/2023 09:51:48 09/17/2023 10:53:54 Idiopathic acute pancreatitis 964153566 K85.00 History of peptic ulcer 758573547 Z87.11 [id number] Huy Beard MD [facility] [id number] 2 12/05/2023 14:24:43 12/05/2023 16:18:32 Idiopathic acute pancreatitis 045923724 K85.00 History of peptic ulcer 319803511 Z87.11 Acid reflux 391883071 K2 1.9 Health Concerns Section Related Observation LastModified by Organization Detai ls LastModified Time None Recorded Concern Status LastModified by Organization Details LastModified Time None Recorded Advance Directives Directive None Recorded Payers Insurance Date Sequence Insurance Name Policy Number Policy Abdul Covered Member ID Abdul Member ID Guarantor Name 12/02/2023 1 [place] [id number] Samia Zaman [id number] Samia Zaman 10/28/2023 2 [place] Samia Zaman [id number] Samia Zaman Notes Date Note Type Note Provider Name and Address Organization Details Recorded Time 09/17/2023 text/html Ms. Zaman is a very pleasant 68-year-old female who was referred by Dr. Stefano Nelson due to recent hospitalization for idiopathic acute pancreatitis. CT during hospital admission at [facility] showed stranding adjacent to the head of the pancreas without fluid collection, mass, or abscess. Lipase was elevated over 3x the upper limit of normal. Hepatic function labs were unremarkable. She has recovered well overall, but notes some mild bilateral abdominal tenderness. She has resumed a regular diet. She denies alcohol use or smoking. She has a history of remote cholecystectomy. She also reports recent unremarkable lipid panel. She states her mother was also hospitalized last year with mild pancreatitis. She denies a family history of pancreatic cancer.Of note, the patient has a history of duodenal erosions seen during EGD in 2015. She was recently started on pantoprazole, which she feels has also helped with discomfort. Jovayn Medeiros PA-C [address] [facility], [place], [address], [facility] [place] - [place] & [place] 09/17/2023 11:00:54 12/05/2023 text/html PREVIOUS (09/17/23 Yehuda Medeiros): Ms. Zaman is a very pleasant 68-year-old female who was referred by Dr. Stefano Nelson due to recent hospitalization for idiopathic acute pancreatitis. CT during hospital admission at [facility] showed stranding adjacent to the head of the pancreas without fluid collection, mass, or abscess. Lipase was elevated over 3x the upper limit of normal. Hepatic function labs were unremarkable. She has recovered well overall, but notes some mild bilateral abdominal tenderness. She has resumed a regular diet. She denies alcohol use or smoking. She has a history of remote cholecystectomy. She also reports recent unremarkable lipid panel. She states her mother was also hospitalized last year with mild pancreatitis. She denies a family history of pancreatic cancer.Of note, the patient has a history of duodenal erosions seen during EGD in 2015. She was recently started on pantoprazole, which she feels has also helped with discomfort. CURRENT (12/05/23 Luzmaria Ashraf): Ms. Zaman presents to the clinic today for follow-up of idiopathic acute pancreatitis. She underwent EUS and EGD with Dr. Beard on 10/21/23 for further evaluation. EGD was unremarkable. EUS showed hyperechoic ampulla as well as hyperechoic liver. The patient reports her symptoms have improved. She does report experiencing some intermittent right-sided abdominal discomfort after eating high fat and greasy foods during and [place]. This pain is intermittent and improving. She describes it as sore. She was also off of her pantoprazole at this time. She reports acid reflux symptoms when she is not taking her PPI. Otherwise her symptoms are well controlled. She denies nausea, vomiting, hematemesis, hematochezia or melena. REIN ASHRAF MSN, BONE PROCESS OPERATOR, RECRUITMENT MANAGER-C [address] [facility], [place], [address], [facility] [place] & [place] 12/05/2023 16:43:04 OBGyn Episode No OBEpisode recorded.
--- NOTE | 2025-09-10 15:02 | MM_ITS ---
PROCEDURE INFORMATION: Exam: MG Bilateral Screening 3D Mammography Exam date and time: 09/10/2025 3:17 PM Age: 70 years old Clinical indication: Screening examination TECHNIQUE: Imaging protocol: Bilateral Screening tomosynthesis and 2D mammography including computer-aided detection (CAD) when performed. COMPARISON: 1. MG MM DIG SCREENING MAMM BI W/CAD 09/09/2024 2:45 PM 2. MG MM DIG SCREENING MAMM BI W/CAD 07/05/2023 1:19 PM FINDINGS: MAMMOGRAPHY: Breast composition: There are scattered areas of fibroglandular density. Mass: No suspicious masses. Architectural distortion: None. Calcifications: No suspicious calcifications. Asymmetric density: None. Skin thickening: None. Axillary adenopathy: None. IMPRESSION: No mammographic evidence of malignancy. Annual screening is recommended unless otherwise clinically indicated. ASSESSMENT: BI-RADS Category 1: Negative.
== END 2025-09-10 23:59 | disposition home or self-care (01) ==
LOC: RAD 14:57
PROVIDERS: PCP Family Medicine; Visit Provider Family Medicine
DX: Z12.31 Encounter for screening mammogram for malignant neoplasm of breast (principal); R92.323 Mammographic fibroglandular density, bilateral breasts
CPT/HCPCS: 77063; 77067